=== PATIENT | male | born 1940 | race Caucasian/White ===

== ENCOUNTER → 2016-10-17 | Day surgery (SDC) | payer OTHER, MEDICARE ==
[2016-10-10 12:48] VITALS: BMI 26.0
--- NOTE | 2016-10-10 13:17 | PAT Medication Instructions ---
Service Date Oct 10, 2016. Current Home Medication List Aspirin (Aspirin Ec), 81 MG PO QAM Atorvastatin (Lipitor), 40 MG PO QAM Clopidogrel Bisulfate (Clopidogrel), 75 MG PO QAM Colchicine (Colchicine), 0.6 MG PO DAILY PRN for gout attacks Febuxostat (Uloric), 40 MG PO QAM Finasteride (Proscar), 5 MG PO QAM Hydralazine Hcl (Apresoline), 25 MG PO TID Lisinopril (Zestril), 40 MG PO QAM Nitroglycerin (Nitrostat), 0.4 MG UT PRN Psyllium (Metamucil), 1 DOSE PO DAILY Tamsulosin Hcl (Flomax), 0.4 MG PO QAM [Ketoconazole 2%], 1 DOSE TOP PRN Medication Instructions For Your Scheduled Surgery - Check with surgeon/attending physician for instructions: Clopidogrel Bisulfate (Clopidogrel), 75 MG PO QAM - Hold the following medications 24 hours prior to surgery: [Ketoconazole 2%], 1 DOSE TOP PRN - Hold the following medications the morning of surgery: Tamsulosin Hcl (Flomax), 0.4 MG PO QAM Psyllium (Metamucil), 1 DOSE PO DAILY Lisinopril (Zestril), 40 MG PO QAM Finasteride (Proscar), 5 MG PO QAM Colchicine (Colchicine), 0.6 MG PO DAILY PRN for gout attacks - Take the following medications the morning of surgery with a sip of water: Hydralazine Hcl (Apresoline), 25 MG PO TID Febuxostat (Uloric), 40 MG PO QAM Atorvastatin (Lipitor), 40 MG PO QAM Aspirin (Aspirin Ec), 81 MG PO QAM (okay to continue per surgeon) Nitroglycerin (Nitrostat), 0.4 MG UT PRN - Hold the following medications as scheduled the night before surgery: Colchicine (Colchicine), 0.6 MG PO DAILY PRN for gout attacks - Take the following medications as scheduled the night before surgery: Hydralazine Hcl (Apresoline), 25 MG PO TID Nitroglycerin (Nitrostat), 0.4 MG UT PRN If you have any questions please call us at [phone] (Saba Arce PA-C) or [phone] or [phone]
[~2016-10-17] VITALS: Ht 170.2 cm; Wt 75.7 kg
[~2016-10-17] MED LIST: ASPI81TA28 PO; ASPIRIN 81 MG ECTAB PO ONE; ATOR-24 PO; ATROPINE SULFATE 0.1 MG/ML 5ML SYR IV PRN; BUPIVACAINE 0.5 % 5 MG/1 ML MPF 30ML VIAL ONE; CEFAZOLIN SOD 1 GM VIAL ONE; CLINDAMYCIN IV 900 MG in DEXTROSE 5% ADD-VANTAGE 100ML 100 ML IV SCH; COLC0.6T54 PO; DEXAMETHASONE SOD INJ 4 MG/ML VIAL ONE; EpHEDrine SULFATE 50MG/5ML SYR ONE; EpHEDrine SULFATE INJ 50 MG/ML AMP IV PRN; FEBU40TA PO; FENTANYL CITRATE INJ 50 MCG/1 ML 2 ML VIAL ONE; FINA5TAB PO; FLOSEAL HEMOSTATIC MATRIX 10ML TOP ONE; FLOSEAL HEMOSTATIC MATRIX 5ML TOP ONE; GLYCOPYRROLATE INJ 0.2 MG/ML VIAL ONE; HEPARIN SOD (PORCINE) 1000 UNIT/ML 10 ML VIAL ONE; HYDR-4717 PO; KETOCONAZOLE 2% TOP; LACTATED RINGER'S 1000ML 1,000 ML IV SCH; LIDOCAINE HCL 2% 2 ML VIAL (20MG/ML) ONE; LISI40TA PO; MYL80 PO; MoRPHine SULFATE 4 MG/ML 1 ML CARP\\VIAL IV PRN; NEOSTIGMINE METHYLSULFATE 5 MG/5 ML SYR ONE; NTRGSL/4 UT; NURSING VERBAL MED ORDER ONE; ONDANSETRON INJ 2 MG/ML 2 ML VIAL IV PRN; ONDANSETRON INJ 2 MG/ML 2 ML VIAL ONE; OXYC-643 PO; OXYCODONE/ACETAMINOPHEN 5-325 TAB PO PRN; PANT20TA PO; PHENYLEPHRINE 100MCG/ML 5ML SYR ONE; PLV75 PO; PROMETHAZINE HCL INJ 6.25 MG in SODIUM CHLORIDE 0.9% 50ML 50 ML IV PRN; PROPOFOL IV EMULSION 10 MG/ML 20 ML VIAL IV ONE; PRT40 PO; PSYL0.524 PO; ROCURONIUM BROMIDE 10 MG/ML 5 ML VIAL ONE; SODIUM CHLORIDE 0.9% 1000ML 1,000 ML IV SCH; TAMS0.4C38 PO
[2016-10-17 08:32] VITALS: BP 158/87; PULSE 67; TEMP 36.4; O2SAT 99; Ht 170.2 cm; Wt 75.7 kg
--- NOTE | 2016-10-17 10:48 | History & Physical Bridge Note ---
H&P Re-Evaluation Bridge Note: I have examined the patient, reviewed the History & Physical and in the interval since the performance of the History & Physical I have noted the following changes of clinical significance: No changes noted
--- NOTE | 2016-10-17 13:37 | [facility] Post Operative Brief Note ---
Immediate Operative Summary Operative Date Oct 17, 2016. Pre-Operative Diagnosis Cholelithiasis, cholecystitis Post-Operative Diagnosis Cholelithiasis, cholecystitis Procedure(s) Performed Laparoscopic Cholecystectomy With Lysis of Adhesions Surgeon Dr German Deluna Records Management Clerk Surgeon(s) Darlene Persaud PA-C Estimated Blood Loss 20ml Findings See dictation Specimens A: Gallbladder and contents Drains None Anesthesia General Complication(s) None Disposition Recovery Room / PACU
[2016-10-17] MEDS: FENTANYL CITRATE INJ 50 MCG/1 ML 2 ML VIAL IV PRN ×2 (13:41→13:57)
--- NOTE | 2016-10-17 13:41 | Discharge Instructions ---
Discharge Instructions Date of Service Oct 17, 2016. Admission Reason for Admission: Right Upper Quadrant Abdominal Pain Discharge Discharge Diagnosis / Problem: Same Discharge Goals Goal(s): Decrease discomfort Activity Recommendations Activity Limitations: per Instructions/Follow-up section . Instructions / Follow-Up Instructions / Follow-Up Post-Surgical ~ Discharge Instructions Activity Recommendations: - lifting limitation: (10 pounds for 2 weeks), - exercise/sex/sports limit: (nonstrenuous for 2 weeks), - driving or machine use limit: (none for 1 week), - Shower/bathe limit: (may shower beginning tomorrow) Diet: - Resume previous diet SPECIAL CARE INSTRUCTIONS: - May shower in 24 hours. Let water run over area and pat dry. - Leave steri strips on for one week. - Call the surgeon's office with any questions or concerns - - (ex. temperature higher than 101 degrees F, excessive bleeding or pain). MEDICATIONS: - Resume previous medications unless instructed otherwise by your surgeon. - Ibuprofen 600 mg every 6 hours with food - Percocet 1 every 4 hours, as needed for pain FOLLOW UP VISIT: - If not already scheduled, please call the office to schedule a two week follow-up appointment. Office number Current Hospital Diet Patient's current hospital diet: Discharge Diet Recommended Diet: Regular Diet Procedures Procedures Performed: Laparoscopic Cholecystectomy With Lysis of Adhesions Pending Studies Studies pending at discharge: no Medical Emergencies . Who to Call and When: Medical Emergencies: If at any time you feel your situation is an emergency, please call 911 immediately. . Non-Emergent Contact Non-Emergency issues call your: Primary Care Provider, Surgeon Call Non-Emergent contact if: your pain is worsening, wound has increased redness, wound has increased pain . "Provider Documentation" section prepared by German Deluna. VTE Core Measure Inpt VTE Proph given/why not?: Treatment not indicated
--- NOTE | 2016-10-17 14:11 | Anesthesiology Progress Note ---
Anesthesia Post Op Note Date & Time Oct 17, 2016 at 14:11 Vital Signs Pain Intensity: 4 Vital Signs Past 12 Hours Date Time Temp Pulse Resp B/P Pulse Ox O2 Delivery O2 Flow Rate FiO2 10/17/16 14:05 70 12 126/83 97 Room Air 10/17/16 13:55 68 13 147/78 100 Mask 10 10/17/16 13:45 65 12 144/84 100 Mask 10 10/17/16 13:37 36.2 80 14 144/68 100 Mask 10 10/17/16 08:32 36.4 67 18 158/87 99 Room Air Notes Mental Status: alert / awake / arousable, participated in evaluation Pt Amnestic to Procedure: Yes Nausea / Vomiting: adequately controlled Pain: adequately controlled Airway Patency, RR, SpO2: stable & adequate BP & HR: stable & adequate Hydration State: stable & adequate Anesthetic Complications: no major complications apparent
[2016-10-17 14:25] VITALS: BP 136/88; PULSE 68; TEMP 36.4; O2SAT 96
[2016-10-17 14:57] VITALS: BP 144/74; PULSE 68; TEMP 36.4; O2SAT 97
[2016-10-17 15:25] VITALS: BP_SYST 145; BP_SYST 146; BP_DIAS 74; BP_DIAS 79; PULSE 68; PULSE 79; TEMP 36.4; TEMP 36.6; O2SAT 96
--- NOTE | 2016-10-17 22:13 | OPERATIVE REPORT ---
DATE OF OPERATION: 10/17/2016 PREOPERATIVE DIAGNOSES: Cholelithiasis, chronic cholecystitis. POSTOPERATIVE DIAGNOSES: Same. PROCEDURE: Laparoscopic cholecystectomy with lysis of multiple adhesions. SURGEON: Dr. Deluna. UNDERCOLLAR MAKER: Darlene Persaud PA-C. FINDINGS: The patient had multiple adhesions of the omentum to the anterior abdominal wall, beneath the vertical midline incision above the umbilicus. There was also a hernia there and there was adhesion of the omentum inside the hernia, but this was all able to eventually be reduced after meticulous dissection. The gallbladder was not dilated. The cystic duct was not dilated. The liver was of normal size and contour. The visible bowel appeared normal. There were stones within the lumen of the gallbladder. TECHNIQUE: The patient was given a general anesthetic and the area was prepped and draped in usual sterile fashion. A small transverse incision was made below the umbilicus, carried down through the subcutaneous tissue to the fascia which was grasped with 2 Atif clamps and incised between. The peritoneum was identified, incised, and the introducer was placed bluntly. The abdomen was then insufflated to a pressure of 15 mmHg with carbon dioxide. The camera was passed and the adhesions to the anterior abdominal wall were identified. The camera could be placed to the left side of the abdomen up toward the falciform and the upper midline introducer was placed to the left of the falciform. Using those 2 introducers, some of the adhesions were able to be taken down; however, I eventually could not to be sure that I had a good plane using just those 2 introducers. Two 5 mm introducers were placed under direct vision through small skin incisions on the left side of the abdomen. Downward traction was placed on the omentum and a plane was then able to be established by dissecting it off the peritoneum on the anterior abdominal wall. I did this working from inferior to superior and then from left to light. Eventually, I was able to dissect the entire omentum away. There was an adhesion of the omentum to the entrance site of one of the trocars and that was taken down as well. This was all done with blunt, sharp and cautery dissection where appropriate. The falciform was densely adhesed and I had to take some of the falciform off the anterior abdominal wall, that exposed the right upper quadrant. An additional introducer was placed in the anterior axillary line on the right under direct vision. Traction was placed superiorly on the gallbladder and the peritoneum was opened on the lateral side of the infundibulum and the gallbladder wall was established. I then worked over the anterior surface of the gallbladder into the triangle of Calot, opening all the spaces and peeling the peritoneum down toward the common bile duct. I then dissected the infundibulum away from the liver on the lateral side, then the medial side. I peeled additional thickened lymphatics and connective tissue away from the infundibulum anteriorly, allowing me to see the anterior surface of the cystic duct. I was then able to establish a plane along the lateral wall of the cystic duct, peeling additional tissue away. I was then able to perform a similar dissection on the medial wall and establish a plane posterior to the cystic duct and confidently identified the cystic duct -- gallbladder junction. Three clips were placed on the proximal cystic duct, 1 near the gallbladder, and it was divided. That exposed the cystic artery. It was isolated 360 degrees. Two clips placed proximally, 1 near the gallbladder, it was divided. The gallbladder was then peeled off the liver bed. In doing so, I encountered a small posterior branch of the artery which was clamped twice and divided. The gallbladder was then able to be dissected off the liver using electrocautery. It was placed into an Endobag and brought out through the upper midline incision. The subdiaphragmatic and subhepatic spaces were irrigated. There was some bile spillage from the gallbladder from a hole created by one of the graspers. The irrigation and then removal was repeated until the return was clear. The gallbladder bed of the liver was inspected. There were a few areas of oozing that were controlled with cautery. The previously placed clips were intact. I used some FloSeal in the gallbladder bed. There was some additional bleeding from the very edge of the gallbladder bed, at the edge of the liver, and this was controlled with cautery and additional FloSeal was placed. There was no further bleeding. The gas was allowed to escape and removed using suction. The introducers were removed. The fascia of the umbilical and upper midline introducer sites were closed with interrupted 0 Vicryl, the skin of all the incisions was closed with 4-0 Monocryl in either an interrupted or running subcuticular fashion. The skin was anesthetized with 0.5% Marcaine. The skin was cleansed, dried, benzoin placed, and Steri-Strips applied. The estimated blood loss was 20 mL. Sponge, needle and instrument counts were correct prior to closure. The patient tolerated the surgical procedure without complication and was transferred to recovery. I attest to the content of the Intraoperative Record and any orders documented therein. Any exceptio ns are noted below.
== END | disposition home or self-care (01) ==
LOC: C.ACU 08:11
PROVIDERS: ATTEND Surgery
DX: K80.10 Calculus of gallbladder with chronic cholecystitis without obstruction (principal); K66.0 Peritoneal adhesions (postprocedural) (postinfection); R10.11 Right upper quadrant pain

== ENCOUNTER 2016-10-20 20:33 | Inpatient (IN) | payer OTHER, MEDICARE ==
[~2016-10-20] VITALS: Ht 170.2 cm; Wt 76.1 kg
[~2016-10-20 20:33] MED LIST changes: -ASPIRIN 81 MG ECTAB PO ONE; -ATROPINE SULFATE 0.1 MG/ML 5ML SYR IV PRN; -BUPIVACAINE 0.5 % 5 MG/1 ML MPF 30ML VIAL ONE; -CEFAZOLIN SOD 1 GM VIAL ONE; -CLINDAMYCIN IV 900 MG in DEXTROSE 5% ADD-VANTAGE 100ML 100 ML IV SCH; -DEXAMETHASONE SOD INJ 4 MG/ML VIAL ONE; -EpHEDrine SULFATE 50MG/5ML SYR ONE; -EpHEDrine SULFATE INJ 50 MG/ML AMP IV PRN; -FENTANYL CITRATE INJ 50 MCG/1 ML 2 ML VIAL ONE; -FLOSEAL HEMOSTATIC MATRIX 10ML TOP ONE; -FLOSEAL HEMOSTATIC MATRIX 5ML TOP ONE; -GLYCOPYRROLATE INJ 0.2 MG/ML VIAL ONE; -HEPARIN SOD (PORCINE) 1000 UNIT/ML 10 ML VIAL ONE; -LACTATED RINGER'S 1000ML 1,000 ML IV SCH; -LIDOCAINE HCL 2% 2 ML VIAL (20MG/ML) ONE; -MYL80 PO; -MoRPHine SULFATE 4 MG/ML 1 ML CARP\\VIAL IV PRN; -NEOSTIGMINE METHYLSULFATE 5 MG/5 ML SYR ONE; -NURSING VERBAL MED ORDER ONE; -ONDANSETRON INJ 2 MG/ML 2 ML VIAL IV PRN; -ONDANSETRON INJ 2 MG/ML 2 ML VIAL ONE; -OXYC-643 PO; -OXYCODONE/ACETAMINOPHEN 5-325 TAB PO PRN; -PANT20TA PO; -PHENYLEPHRINE 100MCG/ML 5ML SYR ONE; -PROMETHAZINE HCL INJ 6.25 MG in SODIUM CHLORIDE 0.9% 50ML 50 ML IV PRN; -PROPOFOL IV EMULSION 10 MG/ML 20 ML VIAL IV ONE; -PRT40 PO; -ROCURONIUM BROMIDE 10 MG/ML 5 ML VIAL ONE; -SODIUM CHLORIDE 0.9% 1000ML 1,000 ML IV SCH
[2016-10-20] MEDS ORDERED: SODIUM CHLORIDE 0.9% 1000ML 1,000 ML IV STA (21:12)
[2016-10-20] MEDS ORDERED: MoRPHine SULFATE 4 MG/ML 1 ML CARP\\VIAL IV STA (21:36)
[2016-10-20] MEDS ORDERED: OXYC-643 PO (21:52)
[2016-10-20] MEDS ORDERED: PANT20TA2 PO (21:52)
[2016-10-20 22:01] LABS: BASO % 0.2 %; BASO ABS # 0.02 K/uL (0-0.2); COMPLETE YES; EOS % 0.9 %; IG% 0.6 %; LYMPH % 4.9 %; LYMPH ABS # 0.51 K/uL (1.2-3.4); MEAN CELL VOLUME 89.7 fL (80-100); MEAN CORPUSCULAR HEMOGLOBIN 31.6 pg (25-34); MEAN CORPUSCULAR HGB CONC 35.3 g/dl (32-36); MEAN PLATELET VOLUME 10.6 fL (7.4-10.4); MONO % 8.4 %; PLATELET COUNT 207 K/uL (130-400); RED BLOOD COUNT 4.46 M/uL (4.7-6.1); WHITE BLOOD COUNT 10.36 K/uL (4.8-10.8)
[2016-10-20 22:22] LABS: BUN/CREATININE RATIO 17.6 (10-20); CALCIUM 8.9 mg/dl (8.5-10.1); CREATININE 1.7 mg/dl (0.60-1.40)
[2016-10-21] VITALS (8 sets, daily range): BP systolic 97–135; BP diastolic 61–90; PULSE 75–102; TEMP 36.3–36.8; O2SAT 94–97; Ht 170.2 cm; Wt 76.1 kg
--- NOTE | 2016-10-21 00:36 | Surgery Progress Note ---
Surgery Progress Note Date of Service Oct 21, 2016. Subjective see dictated note Objective Vital Signs: Date Time Temp Pulse Resp B/P Pulse Ox O2 Delivery O2 Flow Rate FiO2 10/20/16 23:15 96 20 120/81 95 Room Air 10/20/16 21:55 92 20 99/84 93 Room Air 10/20/16 20:39 36.5 126 18 95/62 96 Room Air Laboratory Results: Results Past 24 Hours Test 10/20/16 21:51 Range/Units White Blood Count 10.36 4.8-10.8 K/uL Red Blood Count 4.46 4.7-6.1 M/uL Hemoglobin 14.1 14.0-18.0 g/dL Hematocrit 40.0 42-52 % Mean Corpuscular Volume 89.7 80-100 fL Mean Corpuscular Hemoglobin 31.6 25-34 pg Mean Corpuscular Hemoglobin Concent 35.3 32-36 g/dl Platelet Count 207 130-400 K/uL Mean Platelet Volume 10.6 7.4-10.4 fL Neutrophils (%) (Auto) 85.0 % Lymphocytes (%) (Auto) 4.9 % Monocytes (%) (Auto) 8.4 % Eosinophils (%) (Auto) 0.9 % Basophils (%) (Auto) 0.2 % Neutrophils # (Auto) 8.81 1.4-6.5 K/uL Lymphocytes # (Auto) 0.51 1.2-3.4 K/uL Monocytes # (Auto) 0.87 0.11-0.59 K/uL Eosinophils # (Auto) 0.09 0-0.5 K/uL Basophils # (Auto) 0.02 0-0.2 K/uL RDW Standard Deviation 44.5 36.4-46.3 fL RDW Coefficient of Variation 13.5 11.5-14.5 % Immature Granulocyte % (Auto) 0.6 % Immature Granulocyte # (Auto) 0.06 0.00-0.02 K/uL Sodium Level 135 136-145 mmol/L Potassium Level 4.0 3.5-5.1 mmol/L Chloride Level 100 98-107 mmol/L Carbon Dioxide Level 26 21-32 mmol/L Anion Gap 9.0 3-11 mmol/L Blood Urea Nitrogen 30 7-18 mg/dl Creatinine 1.70 0.60-1.40 mg/dl Est Creatinine Clear Calc Drug Dose 34.6 ml/min Estimated GFR () 44.4 Estimated GFR (Non- 38.3 BUN/Creatinine Ratio 17.6 10-20 Random Glucose 141 70-99 mg/dl Lactic Acid Level 1.2 0.4-2.0 mmol/L Calcium Level 8.9 8.5-10.1 mg/dl Total Bilirubin 0.7 0.2-1 mg/dl Direct Bilirubin 0.2 0-0.2 mg/dl Aspartate Amino Transf (AST/SGOT) 43 15-37 U/L Alanine Aminotransferase (ALT/SGPT) 56 12-78 U/L Alkaline Phosphatase 76 45-117 U/L Total Protein 6.1 6.4-8.2 gm/dl Albumin 2.6 3.4-5.0 gm/dl Lipase 122 73-393 U/L Assessment & Plan 10/21/16- abd pain, nausea, low back pressure- CT shows some intraperitoneal fluid- will order hida for tomorrow and place pt on cefoxitin which he has received in the past w/o reaction- checked with pharmacy
[2016-10-21] MEDS ORDERED: SODIUM CHLORIDE 0.9% 500ML 500 ML IV STA (00:45)
--- NOTE | 2016-10-21 00:45 | EMERGENCY ROOM VISIT NOTE ---
History Report prepared by Klaudia: Stephanie Manzanares Under the Supervision of: Dr. Marquis Bueno D.O. First contact with patient: 21:01 Chief Complaint: ABDOMINAL PAIN Stated Complaint: PRESSURE IN BACK, GALLBLADDER SURGERY ON MONDAY Nursing Triage Summary: Patient ambulatory to triage, daughter states "Dr. Sun told us to come up here. He had gallbladder surgery on Monday. He now has a catheter in since yesterday. He has a lot of pressure in his abdomen and back." Patient was having issues with constipation but has used an enema and suppositories. Patient "is just not feeling well." History of Present Illness The patient is a 76 year old male who presents to the Emergency Room with complaints of persistent right upper quadrant abdominal pain that started 3 days ago. He describes the pain as pressure and he states that he is also experiencing pressure in his back. He is also experiencing nausea but denies fevers greater than 100.4, rhinorrhea, changes in vision, sore throat, cough, and vomiting. The patient had a cholecystectomy done 3 days ago and he was discharged without voiding. The patient did not void the next day either and the following day he experienced urinary incontinence. The patient had a Dinero catheter placed yesterday and it has been draining normally. The patient's daughter states that she called Dr. Deluna's office and Dr. Sun told her to bring the patient into the ED since he is in the hospital on-call. The patient is only taking Advil for his pain because the Percocet that he was prescribed caused him to get constipated. The patient relieved his constipation yesterday with a fleet enema. He had two small bowel movements today, but he has not been passing gas. Source of History: patient Onset: 3 days ago Position: abdomen (RUQ) Quality: pressure Timing: other (persistent) Associated Symptoms: + back pain, + nausea, No cough, No fevers, No sorethroat, No vomiting Note: no rhinorrhea, no changes in vision Review of Systems See HPI for pertinent positives & negatives. A total of 10 systems reviewed and were otherwise negative. Past Medical & Surgical Medical Problems: (1) Angioedema (2) Benign hypertension (3) CKD (chronic kidney disease) (4) Clostridium difficile infection (5) Colonoscopic polypectomy (6) Diverticular disease of colon (7) Gout (8) History of colonic diverticulitis (9) Peripheral neuropathy (10) Raynauds syndrome Family History Diabetes mellitus MOTHER FH: heart attack Hypertension FATHER Mi FATHER Social History Smoking Status: Former Smoker Alcohol Use: none Drug Use: none Marital Status: Housing Status: lives with significant other Occupation Status: retired Current/Historical Medications Scheduled Aspirin (Aspirin Ec), 81 MG PO QAM Atorvastatin (Lipitor), 40 MG PO QAM Clopidogrel Bisulfate (Clopidogrel), 75 MG PO QAM Febuxostat (Uloric), 40 MG PO QAM Finasteride (Proscar), 5 MG PO QAM Hydralazine Hcl (Apresoline), 25 MG PO TID Lisinopril (Zestril), 40 MG PO QAM Nitroglycerin (Nitrostat), 0.4 MG UT PRN Psyllium (Metamucil), 1 DOSE PO DAILY Tamsulosin Hcl (Flomax), 0.4 MG PO QAM Allergies Coded Allergies: Allopurinol (Verified Allergy, Severe, swelling face, tongue, 10/20/16) Sulfa Antibiotics (Verified Allergy, Severe, "MOUTH" SWELLING, 10/20/16) Cantaloupe (Verified Allergy, Intermediate, rash,HIVES, 10/20/16) Penicillins (Verified Allergy, Intermediate, HIVES, 10/20/16) Vancomycin (Verified Allergy, Mild, RASH, 10/20/16) Ethacrynic Acid (Unverified Allergy, Unknown, RASH, 10/20/16) PER RECORDS Indapamide (Verified Allergy, Unknown, unknown, 10/20/16) Amlodipine (Verified Adverse Reaction, Severe, INTOLERANCE TO CALCIUM CHANNEL BLOCKERS (PER DR BERGMAN), 10/20/16) Trichlormethiazide (Verified Adverse Reaction, Severe, intolerance per Dr. Bergman, 10/20/16) Valproic Acid (Verified Adverse Reaction, Mild, diarrhea, 10/20/16) Beta Adrenergic Blockers (Unverified Adverse Reaction, Unknown, BRADYCARDIA, 10/20/16) PER RECORDS Ciprofloxacin (Verified Adverse Reaction, Unknown, SHAKEY DIZZY, 10/20/16) Physical Exam Vital Signs Date Time Temp Pulse Resp B/P Pulse Ox O2 Delivery O2 Flow Rate FiO2 10/20/16 23:15 96 20 120/81 95 Room Air 10/20/16 21:55 92 20 99/84 93 Room Air 10/20/16 20:39 36.5 126 18 95/62 96 Room Air Physical Exam GENERAL: alert, sitting up in bed, uncomfortable appearing holding abdomen, well nourished, no distress, non-toxic EYE EXAM: normal conjunctiva OROPHARYNX: no exudate, no erythema, lips, buccal mucosa, and tongue normal and mucous membranes are dry NECK: supple, no nuchal rigidity, no adenopathy, non-tender LUNGS: Clear to auscultation. Normal chest wall mechanics HEART: no murmurs, S1 normal and S2 normal ABDOMEN: abdomen soft, distended, [address] that are clean, dry, and intact, non-tender, normo-active bowel sounds, no masses, no rebound or guarding. BACK: Back is symmetrical on inspection and there is no deformity, no midline tenderness, no CVA tenderness. SKIN: no rashes and no bruising UPPER EXTREMITIES: upper extremities are grossly normal. LOWER EXTREMITIES: No pitting edema. : Dinero in place NEURO EXAM: Normal sensorium, cranial nerves II-XII grossly intact, normal speech, no gross weakness of arms, no gross weakness of legs. Medical Decision & Procedures ER Provider Diagnostic Interpretation: CT results have been interpreted by the radiologist and reviewed by me. CT ABDOMEN & PELVIS IMPRESSION: Small amount of fluid and peritoneal cavity. If recent cholecystectomy and there's concern for bile leak, recommended HIDA scan. Nonspecific bowel gas pattern with extended loops. Laboratory Results 10/20/16 21:51 Red Blood Count 4.46, Mean Corpuscular Volume 89.7, Mean Corpuscular Hemoglobin 31.6, Mean Corpuscular Hemoglobin Concent 35.3, Mean Platelet Volume 10.6, Neutrophils (%) (Auto) 85.0, Lymphocytes (%) (Auto) 4.9, Monocytes (%) (Auto) 8.4, Eosinophils (%) (Auto) 0.9, Basophils (%) (Auto) 0.2, Neutrophils # (Auto) 8.81, Lymphocytes # (Auto) 0.51, Monocytes # (Auto) 0.87, Eosinophils # (Auto) 0.09, Basophils # (Auto) 0.02 10/20/16 21:51 Test 10/20/16 21:51 White Blood Count 10.36 K/uL (4.8-10.8) Red Blood Count 4.46 M/uL (4.7-6.1) Hemoglobin 14.1 g/dL (14.0-18.0) Hematocrit 40.0 % (42-52) Mean Corpuscular Volume 89.7 fL (80-100) Mean Corpuscular Hemoglobin 31.6 pg (25-34) Mean Corpuscular Hemoglobin Concent 35.3 g/dl (32-36) Platelet Count 207 K/uL (130-400) Mean Platelet Volume 10.6 fL (7.4-10.4) Neutrophils (%) (Auto) 85.0 % Lymphocytes (%) (Auto) 4.9 % Monocytes (%) (Auto) 8.4 % Eosinophils (%) (Auto) 0.9 % Basophils (%) (Auto) 0.2 % Neutrophils # (Auto) 8.81 K/uL (1.4-6.5) Lymphocytes # (Auto) 0.51 K/uL (1.2-3.4) Monocytes # (Auto) 0.87 K/uL (0.11-0.59) Eosinophils # (Auto) 0.09 K/uL (0-0.5) Basophils # (Auto) 0.02 K/uL (0-0.2) RDW Standard Deviation 44.5 fL (36.4-46.3) RDW Coefficient of Variation 13.5 % (11.5-14.5) Immature Granulocyte % (Auto) 0.6 % Immature Granulocyte # (Auto) 0.06 K/uL (0.00-0.02) Anion Gap 9.0 mmol/L (3-11) Est Creatinine Clear Calc Drug Dose 34.6 ml/min Estimated GFR () 44.4 Estimated GFR (Non- 38.3 BUN/Creatinine Ratio 17.6 (10-20) Lactic Acid Level 1.2 mmol/L (0.4-2.0) Calcium Level 8.9 mg/dl (8.5-10.1) Total Bilirubin 0.7 mg/dl (0.2-1) Direct Bilirubin 0.2 mg/dl (0-0.2) Aspartate Amino Transf (AST/SGOT) 43 U/L (15-37) Alanine Aminotransferase (ALT/SGPT) 56 U/L (12-78) Alkaline Phosphatase 76 U/L (45-117) Total Protein 6.1 gm/dl (6.4-8.2) Albumin 2.6 gm/dl (3.4-5.0) Lipase 122 U/L (73-393) Laboratory results per my review. Medications Administered Medications (Trade) Dose Ordered Sig/Avirl Route Start Time Stop Time Status Last Admin Dose Admin Sodium Chloride (Nss 1000ml) 1,000 ml @ 999 mls/hr Q1H1M STAT IV 10/20/16 21:12 10/20/16 22:12 DC 10/20/16 21:56 999 MLS/HR ED Course ED COURSE: Vital signs were reviewed and showed hypotensive. The patients medical record was reviewed The above diagnostic studies were performed and reviewed. ED treatments and interventions as stated above. 2105: The patient was evaluated in room B6. A complete history and physical examination was performed. 2111: Ordered Sodium Chloride 1000 ml @ 999 mls/hr IV 0005: I reviewed the patient's case with Dr. Sun - General Surgery. He will evaluate the patient, but recommends admitting the patient to medicine. 0008: I reviewed the patient's case with Dr. Linh Moulton. The patient will be evaluated for further management. 0010: Upon reevaluation, the patient is resting comfortably. Dr. Sun is at bedside. I discussed my findings with the patient and he understands and agrees with the treatment plan. Based on the patients age, coexisting illnesses, exam and lab findings the decision to treat as an inpatient was made. The patient remained stable while under my care. The patient will be evaluated for further management. Medical Decision Differential diagnoses includes but is not limited to gastritis, peptic ulcer disease, GERD, gallbladder disease, pancreatitis, small bowel obstruction, acute coronary syndrome, pericarditis, ischemic bowel, irritable bowel disease, irritable bowel syndrome, appendicitis, diverticulitis, malignancy, hernia, urinary tract infection, torsion, perforation, trauma, infectious. Patient is a 66 her old male who presents the ER for diffuse abdominal fullness going through to his back. He recently had a cholecystectomy on Monday and since then has been having decreased bowel movements. He denies any fevers. No vomiting. Labs show no significant leukocytosis or anemia. BMP shows a creatinine 1.7. LFTs, bilirubin and lipase are unremarkable. Lactic acid is negative. Patient has a Dinero in place and UA was not obtained. CT of his head and pelvis shows an ileus along with a possible bile duct leak. This was discussed with general surgery and they recommended admission to internal medicine. He was given a dose of Zofran along with a bolus normal saline and Dilaudid. Patient remained stable and will be admitted to internal medicine to rule out a bile duct week with an ileus. Consults Time Called: 0000 Consulting Physician: Dr. Sun - General Surgery Returned Call: 0005 I reviewed the patient's case with Dr. Sun - General Surgery. He will evaluate the patient, but recommends admitting the patient to medicine. Additional Consults: Time Called: 0006 Consulted Physician: Dr. Linh Moulton Returned Call: 000 Additional Comments: I reviewed the patient's case with Dr. Linh Moulton. The patient will be evaluated for further management. Impression Primary Impression: Ileus Additional Impression: Possible bile duct leak Scribe Attestation The scribe's documentation has been prepared under my direction and personally reviewed by me in its entirety. I confirm that the note above accurately reflects all work, treatment, procedures, and medical decision making performed by me. Departure Information Dispostion Being Evaluated By Hospitalist Referrals Jeremiah Van D.O. (PCP) Patient Instructions My [facility] Problem Qualifiers
--- NOTE | 2016-10-21 00:55 | HISTORY & PHYSICAL EXAMINATION ---
DATE OF ADMISSION: 10/21/2016 ER evaluation for abdominal pain. HISTORY OF PRESENT ILLNESS: The patient is a 76-year-old male who recently underwent laparoscopic cholecystectomy with lysis of adhesions and also yesterday underwent Dinero catheter placement for urinary retention. He had his cholecystectomy on 10/17/2016, did well and was discharged home and then developed the urinary retention. His daughter called me tonight and said he was not feeling well, had pressure in his back, did not really want to drink much and felt somewhat bloated. I did instruct her to bring him to the Emergency Room for evaluation. He did undergo evaluation with CAT scan which showed some fluid within the abdomen. FAMILY AND SOCIAL HISTORY: Essentially noncontributory. ALLERGIES: HE HAS MULTIPLE ALLERGIES, PLEASE SEE CHART. REVIEW OF SYSTEMS: He has no fever, chills, chest pain, cough, sputum production. He does have some mild abdominal pain and nausea. No vomiting, no joint pain. Mild dysuria. No rash. Some mild fatigue. PHYSICAL EXAMINATION: VITAL SIGNS: He is afebrile. His heart rate is in the 90s. His blood pressure is stable. HEENT: Grossly normal. Sclerae nonicteric. NECK: Supple. LUNGS: He is breathing comfortably without respiratory distress. HEART: Regular rate and rhythm. ABDOMEN: Mildly distended. He does have some bowel sounds but decreased. He has minimal tenderness. EXTREMITIES: Without edema. His laboratory showed white count normal at 10.3. His liver functions are essentially normal. His bilirubin is normal. ASSESSMENT AND PLAN: A 76-year-old male with recent laparoscopic cholecystectomy. CT scan is read as some fluid in the abdomen which may be more than expected. We will check a HIDA scan tomorrow to rule out leak and most likely empirically place the patient on IV antibiotics. He will probably need 2-3 days in the hospital to be sure he does not have a leak and is able to eat and drink adequately. We will also check his urine for bacteria.
[2016-10-21] MEDS ORDERED: ACETAMINOPHEN 325 MG TAB PO PRN (01:00)
[2016-10-21] MEDS ORDERED: MAGNESIUM HYDROXIDE SUSP 30 ML UDC PO PRN (01:00)
[2016-10-21] MEDS ORDERED: ONDANSETRON INJ 2 MG/ML 2 ML VIAL IV PRN ×2 (01:00→05:15)
--- NOTE | 2016-10-21 01:09 | History and Physical ---
History & Physical Date & Time of Service: Oct 21, 2016 at 00:53 Chief Complaint: Pressure In Back, Gallbladder Surgery On Monday Primary Care Physician: Jeremiah Van D.O. History of Present Illness Source: patient, clinic records, hospital records 76 year old male with history of CAD, s/p Bare Metal Stent Placement to LAD in 2013, Hypertension, CKD 3, and other problems noted below presenting with abdominal bloating x [address] Van for PCP. Last 10/17/16, patient underwent Laparoscopic Cholecystectomy with Lysis of Adhesions for Cholecystitis/Cholelithiasis by Dr. Deluna. He was discharge the same day. Patient was apparently doing well until 2 days prior to admission when he started to have abdominal bloating and nausea. Denies fever/chills, dyspnea, chest pain. Patient was constipated and had fleet edema done yesterday with good bowel movement. He also noted urinary retention since after the surgery and a Dinero Catheter has been placed in the outpatient clinic. Patient's abdominal bloating and nausea persisted and was advised by Dr. Sun to proceed to the ED. Preliminary CT abdomen report reveals fluid in the intraperitoneal cavity, r/o Biliary Leak. LFTs and WBC within normal limits. On exam, patient resting in bed, comfortable except for abdominal bloating. Denies active abdominal pain, nausea, chest pain, dyspnea. No other symptoms. Past Medical/Surgical History Medical Problems: (1) Angioedema Status: Resolved (2) Benign hypertension Status: Chronic (3) CKD (chronic kidney disease) Status: Chronic (4) Clostridium difficile infection Status: Resolved (5) Colonoscopic polypectomy Status: Resolved (6) Diverticular disease of colon Status: Chronic (7) Gout Status: Chronic (8) History of colonic diverticulitis Status: Chronic (9) Peripheral neuropathy Status: Chronic (10) Raynauds syndrome Status: Chronic Family History Diabetes mellitus MOTHER FH: heart attack Hypertension FATHER Mi FATHER Social History Smoking Status: Former Smoker Drug Use: none Marital Status: Occupational Status: retired Immunizations History of Influenza Vaccine: Yes Influenza Vaccine Date: May 13, 2014 History of Tetanus Vaccine?: Yes History of Pneumococcal: Yes Pneumococcal Date: Nov 21, 2013 History of Hepatitis B Vaccine: No Multi-Drug Resistant Organisms History of MDRO: No Allergies Coded Allergies: Allopurinol (Verified Allergy, Severe, swelling face, tongue, 10/20/16) Sulfa Antibiotics (Verified Allergy, Severe, "MOUTH" SWELLING, 10/20/16) Cantaloupe (Verified Allergy, Intermediate, rash,HIVES, 10/20/16) Penicillins (Verified Allergy, Intermediate, HIVES, 10/20/16) Vancomycin (Verified Allergy, Mild, RASH, 10/20/16) Ethacrynic Acid (Unverified Allergy, Unknown, RASH, 10/20/16) PER RECORDS Indapamide (Verified Allergy, Unknown, unknown, 10/20/16) Amlodipine (Verified Adverse Reaction, Severe, INTOLERANCE TO CALCIUM CHANNEL BLOCKERS (PER DR DE LEÓN), 10/20/16) Trichlormethiazide (Verified Adverse Reaction, Severe, intolerance per Dr. De León, 10/20/16) Valproic Acid (Verified Adverse Reaction, Mild, diarrhea, 10/20/16) Beta Adrenergic Blockers (Unverified Adverse Reaction, Unknown, BRADYCARDIA, 10/20/16) PER RECORDS Ciprofloxacin (Verified Adverse Reaction, Unknown, SHAKEY DIZZY, 10/20/16) Home Medications Scheduled Aspirin (Aspirin Ec), 81 MG PO QAM Atorvastatin (Lipitor), 40 MG PO QAM Clopidogrel Bisulfate (Clopidogrel), 75 MG PO QAM Febuxostat (Uloric), 40 MG PO QAM Finasteride (Proscar), 5 MG PO QAM Hydralazine Hcl (Apresoline), 25 MG PO TID Lisinopril (Zestril), 40 MG PO QAM Nitroglycerin (Nitrostat), 0.4 MG UT PRN Psyllium (Metamucil), 1 DOSE PO DAILY Tamsulosin Hcl (Flomax), 0.4 MG PO QAM Review of Systems Constitutional- no fever; no weight loss Eyes- no acute visual changes ENT- no sinus drainage; no pharyngitis Pulmonary- no cough, no wheezing, no shortness of breath Cardiac- no chest pain, no palpitations, no orthopnea, no dependent edema GI- (+) as noted above - (+) as noted above Musculoskeletal- no arthralgias, no myalgias Derm- no rashes, no new skin lesions, no changing skin lesions Hematologic- no unusual bruising, no unusual bleeding Lymphatics- no adenopathy Endocrine- no polyuria or polydipsia; no heat or cold intolerance Neuro- no headaches, no focal neurologic symptoms Psych- no anxiety, no depression Physical Exam Vital Signs Date Time Temp Pulse Resp B/P Pulse Ox O2 Delivery O2 Flow Rate FiO2 10/20/16 23:15 96 20 120/81 95 Room Air 10/20/16 21:55 92 20 99/84 93 Room Air 10/20/16 20:39 36.5 126 18 95/62 96 Room Air General Appearance: WD/WN, no apparent distress Head: normocephalic, atraumatic Eyes: normal inspection, EOMI, sclerae normal ENT: normal ENT inspection, hearing grossly normal, pharynx normal Neck: supple, no adenopathy, thyroid normal, no JVD, trachea midline Respiratory/Chest: chest non-tender, lungs clear, normal breath sounds, no respiratory distress, no accessory muscle use Cardiovascular: regular rate, rhythm, no murmur Abdomen/GI: normal bowel sounds, soft, + tenderness (moderate tenderness to RLQ and suprapubic region), + distended (mild distention), + pertinent finding ( no guarding) Back: normal inspection, no CVA tenderness Extremities/Musculoskelatal: normal inspection, no calf tenderness, no pedal edema Neurologic/Psych: ob gyn physician assistant II-XII nml as tested, no motor/sensory deficits, alert, normal mood/affect, normal reflexes, oriented x 3 Skin: normal color Diagnostics Laboratory Results Results Past 24 Hours Test 10/20/16 21:51 Range/Units White Blood Count 10.36 4.8-10.8 K/uL Red Blood Count 4.46 4.7-6.1 M/uL Hemoglobin 14.1 14.0-18.0 g/dL Hematocrit 40.0 42-52 % Mean Corpuscular Volume 89.7 80-100 fL Mean Corpuscular Hemoglobin 31.6 25-34 pg Mean Corpuscular Hemoglobin Concent 35.3 32-36 g/dl Platelet Count 207 130-400 K/uL Mean Platelet Volume 10.6 7.4-10.4 fL Neutrophils (%) (Auto) 85.0 % Lymphocytes (%) (Auto) 4.9 % Monocytes (%) (Auto) 8.4 % Eosinophils (%) (Auto) 0.9 % Basophils (%) (Auto) 0.2 % Neutrophils # (Auto) 8.81 1.4-6.5 K/uL Lymphocytes # (Auto) 0.51 1.2-3.4 K/uL Monocytes # (Auto) 0.87 0.11-0.59 K/uL Eosinophils # (Auto) 0.09 0-0.5 K/uL Basophils # (Auto) 0.02 0-0.2 K/uL RDW Standard Deviation 44.5 36.4-46.3 fL RDW Coefficient of Variation 13.5 11.5-14.5 % Immature Granulocyte % (Auto) 0.6 % Immature Granulocyte # (Auto) 0.06 0.00-0.02 K/uL Sodium Level 135 136-145 mmol/L Potassium Level 4.0 3.5-5.1 mmol/L Chloride Level 100 98-107 mmol/L Carbon Dioxide Level 26 21-32 mmol/L Anion Gap 9.0 3-11 mmol/L Blood Urea Nitrogen 30 7-18 mg/dl Creatinine 1.70 0.60-1.40 mg/dl Est Creatinine Clear Calc Drug Dose 34.6 ml/min Estimated GFR () 44.4 Estimated GFR (Non- 38.3 BUN/Creatinine Ratio 17.6 10-20 Random Glucose 141 70-99 mg/dl Lactic Acid Level 1.2 0.4-2.0 mmol/L Calcium Level 8.9 8.5-10.1 mg/dl Total Bilirubin 0.7 0.2-1 mg/dl Direct Bilirubin 0.2 0-0.2 mg/dl Aspartate Amino Transf (AST/SGOT) 43 15-37 U/L Alanine Aminotransferase (ALT/SGPT) 56 12-78 U/L Alkaline Phosphatase 76 45-117 U/L Total Protein 6.1 6.4-8.2 gm/dl Albumin 2.6 3.4-5.0 gm/dl Lipase 122 73-393 U/L Diagnostic Radiology per H&P Impression Assessment and Plan 76 year old male with history of CAD, s/p Bare Metal Stent Placement to LAD in 2013, Hypertension, CKD 3, and other problems noted below presenting with abdominal bloating x 2 days. ABDOMINAL BLOATING, NAUSEA S/P LAPAROSCOPIC CHOLECYSTECTOMY, ADHESIOLYSIS 10/17/16 - noted post op Day 2 - r/o Biliary Leak as per CT abdomen - afebrile, no leukocytosis LFTs within normal limits - NPO, IV fluids, PRN Simethicone, Protonix IV daily Dr. Sun Gen Surg Consulted CONSTIPATION PRN Milk of Mg URINARY RETENTION noted post operatively Dinero Cath trial of voiding when able HISTORY OF CAD S/P BARE METAL STENT PLACEMENT TO LAD per Shift Supervisor Rn, maintain on Aspirin with no interruption, HOLD Plavix if surgery contemplated continue Aspirin, HOLD Plavix for now BP marginal, hold Lisinopril and Hydralazine HYPERTENSION BP marginal, hold Lisinopril and Hydralazine monitor CKD 3 baseline crea 1.5 now 1.7 Lisinopril on hold IV fluids BPH continue Finasteride, Tamsulosin HISTORY OF C DIFF FULL CODE DVT PROPHYLAXIS SCDs may need surgical intervention DISPOSITION anticipate d/c home when medically stable VTE Prophylaxis VTE Risk Assessment Done? Y/N: Yes Risk Level: Moderate
[2016-10-21] MEDS: D5W AND NSS 1,000 ML IV SCH ×3 (01:51→23:13)
[2016-10-21] MEDS ORDERED: PANTOprazole INJ 40 MG in SYRINGE 0 ML IV ONE (02:00)
[2016-10-21 02:08] LABS: URINE APPEARANCE TURBID (CLEAR); URINE COLOR DK YELLOW; URINE NITRITE POS (NEG); URINE SPECIFIC GRAVITY 1.028 (1.000-1.030); UROBILINOGEN NEG (NEG); ZZUR CULT IF INDIC CLEAN CATCH YES
[2016-10-21 02:12] LABS: MANUAL MICROSCOPIC REQUIRED? NO; REVIEW REQ? YES
[2016-10-21 02:14] LABS: URINE BILIRUBIN NEG (NEG)
[2016-10-21 02:28] LABS: URINE MUCUS PRESENT (NONE PRSENT)
[2016-10-21] MEDS: CEFOXITIN IV 1,000 MG in DEXTROSE 5% 50ML 50 ML IV SCH ×3 (02:30→18:33)
[2016-10-21] MEDS ORDERED: PROMETHAZINE HCL INJ 25 MG in SODIUM CHLORIDE 0.9% 50ML 50 ML IV PRN (05:15)
[2016-10-21] MEDS ORDERED: PROMETHAZINE HCL INJ 12.5 MG in SODIUM CHLORIDE 0.9% 50ML 50 ML IV PRN (05:30)
--- NOTE | 2016-10-21 06:32 | DIAGNOSTIC IMAGING REPORT ---
ABDOMEN AND PELVIS CT WITHOUT CONTRAST CT DOSE: 367.66 mGy.cm HISTORY: Postoperative pain pain TECHNIQUE: Multiaxial CT images of the abdomen and pelvis were performed without contrast. COMPARISON STUDY: 03/26/2013 FINDINGS: Bibasilar atelectatic changes. There is no free fluid showing both liver as well as spleen. Prior cholecystectomy. Small amount of fluid within the gallbladder fossa region. A trace amount of free scattered intraperitoneal air most likely on a postoperative basis. Kidneys negative for hydronephrosis. Small left renal exophytic hyperdense cyst. Trauma fluid within the paracolic gutter regions as well as within the soft tissue pelvic cul-de-sac. Dinero catheter in the bladder. Scattered pelvic surgical sutures. Bowel pattern is suggestive of a mild nonobstructive generalized ileus. IMPRESSION: 1. Postoperative changes consistent with a recent cholecystectomy. 2. Small amount of ascites within the abdomen as well as pelvic regions. 3. Trace amount free intraperitoneal air most likely postoperative. 4. Bibasilar atelectatic change. 5. Mild nonobstructive ileus Electronically signed by: German Amaro M.D. 10/21/2016 6:31 AM Dictated Date/Time: 10/21/2016 6:27 AM
[2016-10-21] MEDS: PSYLLIUM 58.6% PWD PACK S\\F PO SCH (09:00)
--- NOTE | 2016-10-21 10:08 | DIAGNOSTIC IMAGING REPORT ---
NUCLEAR MEDICINE HEPATOBILIARY SCAN CLINICAL HISTORY: Diffuse abdominal pain status post cholecystectomy. Evaluate for bile leak. COMPARISON STUDY: CT scan dated 10/20/2016 FINDINGS: The patient was injected with 5.3 mCi of technetium 99m Choletec. Sequential anterior imaging was performed. Delayed images were also acquired. There is normal patches of activity into small bowel. There is reflux of activity into the stomach. Delayed images reveal no free activity within the peritoneal cavity. There are no subcapsular collections. IMPRESSION: No scintigraphic evidence of a bile leak. Electronically signed by: Jacob Nguyễn M.D. 10/21/2016 10:07 AM Dictated Date/Time: 10/21/2016 10:04 AM
[2016-10-21] MEDS: FINASTERIDE 5 MG TAB PO SCH (10:09)
[2016-10-21] MEDS: FEBUXOSTAT 40 MG TAB PO SCH (10:09)
[2016-10-21] MEDS: ASPIRIN 81 MG ECTAB PO SCH (10:10)
[2016-10-21] MEDS: TAMSULOSIN HCL 0.4 MG CAP PO SCH (10:11)
[2016-10-21] MEDS ORDERED: PANTOprazole INJ 40 MG in SYRINGE 0 ML IV SCH (11:00)
[2016-10-21 11:41] LABS: BASO % 0.1 %; BASO ABS # 0.01 K/uL (0-0.2); COMPLETE YES; EOS % 1.5 %; HEMATOCRIT 38.2 % (42-52); IG% 0.9 %; LYMPH % 7.8 %; MEAN CELL VOLUME 90.5 fL (80-100); MEAN CORPUSCULAR HEMOGLOBIN 31.8 pg (25-34); MEAN CORPUSCULAR HGB CONC 35.1 g/dl (32-36); MEAN PLATELET VOLUME 10.2 fL (7.4-10.4); MONO % 9.9 %; NEUT % 79.8 %; PLATELET COUNT 209 K/uL (130-400); RED BLOOD COUNT 4.22 M/uL (4.7-6.1); WHITE BLOOD COUNT 8.95 K/uL (4.8-10.8)
[2016-10-21 12:03] LABS: CALCIUM 8.5 mg/dl (8.5-10.1); CREATININE 2.4 mg/dl (0.60-1.40)
[2016-10-21] MEDS: SIMETHICONE 80 MG CHEW PO PRN (14:44)
[2016-10-21] MEDS ORDERED: NURSING VERBAL MED ORDER ONE (15:30)
--- NOTE | 2016-10-21 15:41 | Surgery Progress Note ---
Surgery Progress Note Date of Service Oct 21, 2016. Subjective Post OP Day: 4 + bowel movement, + flatus, No SOB, No chest pain, No nausea, No vomiting Feeling better than yesterday but still having abdominal bloating and pain + bowel movement (liquids) + flatus no vomiting Objective Vital Signs: Date Time Temp Pulse Resp B/P Pulse Ox O2 Delivery O2 Flow Rate FiO2 10/21/16 15:09 36.5 98 16 123/84 96 Room Air 10/21/16 11:53 36.8 92 20 106/90 94 Room Air 100/66 10/21/16 10:51 96 10/21/16 07:55 36.5 102 18 100/80 96 Room Air 10/21/16 07:30 Room Air 10/21/16 07:30 100 10/21/16 01:36 36.3 81 18 135/87 97 Room Air 10/21/16 01:25 36.3 81 18 135/87 97 Room Air 10/21/16 01:15 78 20 126/75 95 10/20/16 23:15 96 20 120/81 95 Room Air 10/20/16 21:55 92 20 99/84 93 Room Air 10/20/16 20:39 36.5 126 18 95/62 96 Room Air Physical Exam: urine output (120 cc in last 9 hours, dark yellow) General Appearance: WD/WN, + mild distress Head: normocephalic, atraumatic Respiratory/Chest: no respiratory distress, no accessory muscle use Abdomen: soft, + abnormal bowel sounds (hypoactive), + distended, + guarding ( on deep palpation), + tenderness Incision(s): clean, dry, intact, no erythema, no drainage Laboratory Results: Results Past 24 Hours Test 10/20/16 21:51 10/21/16 01:35 10/21/16 11:32 Range/Units White Blood Count 10.36 8.95 4.8-10.8 K/uL Red Blood Count 4.46 4.22 4.7-6.1 M/uL Hemoglobin 14.1 13.4 14.0-18.0 g/dL Hematocrit 40.0 38.2 42-52 % Mean Corpuscular Volume 89.7 90.5 80-100 fL Mean Corpuscular Hemoglobin 31.6 31.8 25-34 pg Mean Corpuscular Hemoglobin Concent 35.3 35.1 32-36 g/dl Platelet Count 207 209 130-400 K/uL Mean Platelet Volume 10.6 10.2 7.4-10.4 fL Neutrophils (%) (Auto) 85.0 79.8 % Lymphocytes (%) (Auto) 4.9 7.8 % Monocytes (%) (Auto) 8.4 9.9 % Eosinophils (%) (Auto) 0.9 1.5 % Basophils (%) (Auto) 0.2 0.1 % Neutrophils # (Auto) 8.81 7.14 1.4-6.5 K/uL Lymphocytes # (Auto) 0.51 0.70 1.2-3.4 K/uL Monocytes # (Auto) 0.87 0.89 0.11-0.59 K/uL Eosinophils # (Auto) 0.09 0.13 0-0.5 K/uL Basophils # (Auto) 0.02 0.01 0-0.2 K/uL RDW Standard Deviation 44.5 45.4 36.4-46.3 fL RDW Coefficient of Variation 13.5 13.7 11.5-14.5 % Immature Granulocyte % (Auto) 0.6 0.9 % Immature Granulocyte # (Auto) 0.06 0.08 0.00-0.02 K/uL Sodium Level 135 139 136-145 mmol/L Potassium Level 4.0 4.0 3.5-5.1 mmol/L Chloride Level 100 104 98-107 mmol/L Carbon Dioxide Level 26 29 21-32 mmol/L Anion Gap 9.0 6.0 3-11 mmol/L Blood Urea Nitrogen 30 31 7-18 mg/dl Creatinine 1.70 2.40 0.60-1.40 mg/dl Est Creatinine Clear Calc Drug Dose 34.6 24.5 ml/min Estimated GFR () 44.4 29.3 Estimated GFR (Non- 38.3 25.3 BUN/Creatinine Ratio 17.6 13.0 10-20 Random Glucose 141 130 70-99 mg/dl Lactic Acid Level 1.2 0.4-2.0 mmol/L Calcium Level 8.9 8.5 8.5-10.1 mg/dl Total Bilirubin 0.7 0.5 0.2-1 mg/dl Direct Bilirubin 0.2 0.2 0-0.2 mg/dl Aspartate Amino Transf (AST/SGOT) 43 47 15-37 U/L Alanine Aminotransferase (ALT/SGPT) 56 64 12-78 U/L Alkaline Phosphatase 76 69 45-117 U/L Total Protein 6.1 5.7 6.4-8.2 gm/dl Albumin 2.6 2.5 3.4-5.0 gm/dl Lipase 122 73-393 U/L Urine Color DK YELLOW Urine Appearance TURBID CLEAR Urine pH 5.0 4.5-7.5 Urine Specific [place] 1.028 1.000-1.030 Urine Protein 3+ NEG Urine Glucose (UA) NEG NEG Urine Ketones TRACE NEG Urine Occult Blood 3+ NEG Urine Nitrite POS NEG Urine Bilirubin NEG NEG Urine Urobilinogen NEG NEG Urine Leukocyte Esterase MODERATE NEG Urine WBC (Auto) >30 0-5 /hpf Urine RBC (Auto) >30 0-4 /hpf Urine Hyaline Casts (Auto) 5-10 0-5 /lpf Urine Epithelial Cells (Auto) 5-10 0-5 /lpf Urine Bacteria (Auto) 4+ NEG Urine Pathogenic Casts 0 /lpf Urine Mucus PRESENT NONE PRSENT Urine Yeast (Auto) NONE PRSENT Microbiology Results 3 Urine Culture, Received Pending Assessment & Plan POD # 4 s/p Laparoscopic Cholecystectomy and lysis of adhesions - S/p urinary retention and placement of Dinero Catheter - Post-op Ileus - + BM and flatus - abdomen still operator and distended - Afebrile - no leukocytosis - BUN/Creatinine increased from yesterday to 31/2.40 Plan: Continue NPO Increase IV fluids to 125 mls/hr Continue pain management Continue IV Cefoxitin avoid narcotics Continue Dinero Catheter Encourage ambulation await results of urine culture repeat am labs: cbc, cmp Will continue to follow Dr. Deluna has seen and examined patient developed assessment and plan.
[2016-10-22] MEDS: CEFOXITIN IV 1,000 MG in DEXTROSE 5% 50ML 50 ML IV SCH ×3 (01:37→17:28)
[2016-10-22 05:57] LABS: HEMATOCRIT 35.9 % (42-52); MEAN CELL VOLUME 89.1 fL (80-100); MEAN CORPUSCULAR HEMOGLOBIN 30.8 pg (25-34); MEAN CORPUSCULAR HGB CONC 34.5 g/dl (32-36); MEAN PLATELET VOLUME 9.6 fL (7.4-10.4); PLATELET COUNT 223 K/uL (130-400); RED BLOOD COUNT 4.03 M/uL (4.7-6.1); WHITE BLOOD COUNT 8.81 K/uL (4.8-10.8)
[2016-10-22 06:33] LABS: BUN/CREATININE RATIO 14.5 (10-20); CREATININE 1.9 mg/dl (0.60-1.40)
[2016-10-22 06:36] LABS: ALB/GLOB RATIO 0.7 (0.9-2)
[2016-10-22 06:59] VITALS: BP 134/80; PULSE 79; TEMP 36.7; O2SAT 95
[2016-10-22] MEDS: D5W AND NSS 1,000 ML IV SCH ×2 (08:06→17:29)
[2016-10-22] MEDS: FEBUXOSTAT 40 MG TAB PO SCH (08:06)
[2016-10-22] MEDS: TAMSULOSIN HCL 0.4 MG CAP PO SCH (08:07)
[2016-10-22] MEDS: FINASTERIDE 5 MG TAB PO SCH (08:07)
[2016-10-22] MEDS: ASPIRIN 81 MG ECTAB PO SCH (08:07)
[2016-10-22] MEDS: PANTOprazole SOD 40 MG TAB PO SCH (08:09)
--- NOTE | 2016-10-22 11:59 | Surgery Progress Note ---
Surgery Progress Note Date of Service Oct 22, 2016. Subjective Post OP Day: 5 + bowel movement, + flatus, No nausea, No vomiting Feels much better today Objective Vital Signs: Date Time Temp Pulse Resp B/P Pulse Ox O2 Delivery O2 Flow Rate FiO2 10/22/16 08:00 Room Air 10/22/16 06:59 36.7 79 17 134/80 95 Room Air 10/21/16 23:15 Room Air 10/21/16 23:00 36.8 75 16 97/61 96 Room Air 10/21/16 16:00 Room Air 10/21/16 15:09 36.5 98 16 123/84 96 Room Air Abdomen: normal bowel sounds, non distended, soft, + tenderness (minimal) Incision(s): clean, dry, intact, no erythema, no drainage Laboratory Results: Results Past 24 Hours Test 10/22/16 05:50 Range/Units White Blood Count 8.81 4.8-10.8 K/uL Red Blood Count 4.03 4.7-6.1 M/uL Hemoglobin 12.4 14.0-18.0 g/dL Hematocrit 35.9 42-52 % Mean Corpuscular Volume 89.1 80-100 fL Mean Corpuscular Hemoglobin 30.8 25-34 pg Mean Corpuscular Hemoglobin Concent 34.5 32-36 g/dl RDW Standard Deviation 45.1 36.4-46.3 fL RDW Coefficient of Variation 13.7 11.5-14.5 % Platelet Count 223 130-400 K/uL Mean Platelet Volume 9.6 7.4-10.4 fL Sodium Level 142 136-145 mmol/L Potassium Level 4.0 3.5-5.1 mmol/L Chloride Level 109 98-107 mmol/L Carbon Dioxide Level 24 21-32 mmol/L Anion Gap 9.0 3-11 mmol/L Blood Urea Nitrogen 28 7-18 mg/dl Creatinine 1.90 0.60-1.40 mg/dl Est Creatinine Clear Calc Drug Dose 30.9 ml/min Estimated GFR () 38.8 Estimated GFR (Non- 33.5 BUN/Creatinine Ratio 14.5 10-20 Random Glucose 101 70-99 mg/dl Calcium Level 8.0 8.5-10.1 mg/dl Total Bilirubin 0.4 0.2-1 mg/dl Aspartate Amino Transf (AST/SGOT) 59 15-37 U/L Alanine Aminotransferase (ALT/SGPT) 77 12-78 U/L Alkaline Phosphatase 76 45-117 U/L Total Protein 5.5 6.4-8.2 gm/dl Albumin 2.3 3.4-5.0 gm/dl Globulin 3.2 2.5-4.0 gm/dl Albumin/Globulin Ratio 0.7 0.9-2 Assessment & Plan S/P lap jillian Constipation resolved Urinary retention, Has Dinero Urine output increased with increased IV fluids Creatinine decreased today Can begin clear liquids Can shower
[2016-10-22] MEDS: PSYLLIUM 58.6% PWD PACK S\\F PO SCH (12:06)
[2016-10-22 15:11] VITALS: BP 129/80; PULSE 71; TEMP 36.5; O2SAT 98
[2016-10-22] MEDS: SIMETHICONE 80 MG CHEW PO PRN (16:28)
--- NOTE | 2016-10-22 16:29 | Progress Note ---
Internal Med Progress Note Date of Service: Oct 22, 2016. Provider Documentation: SUBJECTIVE: Patient is lying in his bed in no apparent distress. Still c/o feeling of fullness in abdomen. Had a few watery BMs earlier today. Had some nausea earlier but no vomiting. Tolerating liquid diet so far. OBJECTIVE: Vital Signs-as noted below Examination: General Appearance: WD/WN, no apparent distress Head: normocephalic, atraumatic Eyes: normal inspection, EOMI, sclerae normal ENT: normal ENT inspection, hearing grossly normal, pharynx normal Neck: supple, no adenopathy, thyroid normal, no JVD, trachea midline Respiratory/Chest: chest non-tender, lungs clear, normal breath sounds, no respiratory distress, no accessory muscle use Cardiovascular: regular rate, rhythm, no murmur Abdomen/GI: normal bowel sounds, soft, Mild to moderate pain on deep palpation to RLQ and suprapubic region,mild distention, No gaurding. Back: normal inspection, no CVA tenderness Extremities/Musculoskeletal: normal inspection, no calf tenderness, no pedal edema Neurologic/Psych: brim buster II-XII nml as tested, no motor/sensory deficits, alert, normal mood/affect, normal reflexes, oriented x 3 Skin: normal color Lab data as noted below. ASSESSMENT & PLAN: CT Abdomen/Pelvis IMPRESSION: 1. Postoperative changes consistent with a recent cholecystectomy. 2. Small amount of ascites within the abdomen as well as pelvic regions. 3. Trace amount free intraperitoneal air most likely postoperative. 4. Bibasilar atelectatic change. 5. Mild nonobstructive ileus NUCLEAR MEDICINE HEPATOBILIARY SCAN FINDINGS: The patient was injected with 5.3 mCi of technetium 99m Choletec.Sequential anterior imaging was performed. Delayed images were also acquired. There is normal patches of activity into small bowel. There is reflux of activity into the stomach. Delayed images reveal no free activity within the peritoneal cavity. There are no subcapsular collections. IMPRESSION: No scintigraphic evidence of a bile leak. Abdominal Bloating with Nausea: S/P Laparoscopic Cholecystectomy & Adhesiolysis on 10/17/2016: Clinically doing well. ?? Mild Ileus. Is afebrile and has no leukocytosis. -Reviewed radiologic studies which R/O Bile leak. -LFT are in normal limits -Started clear liquid diet -Reviewed surgical input. Thanks Constipation: MOM as needed.CONSTIPATION Urinary Retention: Post-operatively. -Advised nursing staff to discontinue Dinero catheter. -Trial of voiding when able History CAD S/P Bare metal Stent: Stable. As per Manager Fine, maintain on Aspirin with no interruption, HOLD Plavix if surgery contemplated continue Aspirin, HOLD Plavix for now BP marginal, hold Lisinopril and Hydralazine History Hypertension: BP marginal. Holding Lisinopril and Hydralazine CKD Stage III: Baseline Creatinine 1.5 History BPH: Stable. Continue Finasteride, Tamsulosin History C. Diff: Stable. Code Status: FULL CODE DVT Prophylaxis: SCDs & Ambulation. Disposition: Anticipate d/c home when medically stable Vital Signs: Date Time Temp Pulse Resp B/P Pulse Ox O2 Delivery O2 Flow Rate FiO2 10/23/16 14:53 36.6 61 16 124/72 98 Room Air 10/23/16 07:50 Room Air 10/23/16 07:27 36.3 71 16 129/74 98 Room Air 10/22/16 23:25 Room Air 10/22/16 23:18 37.3 77 19 147/84 98 Room Air Lab Results: Results Past 24 Hours Test 10/23/16 05:22 Range/Units White Blood Count 7.44 4.8-10.8 K/uL Red Blood Count 3.37 4.7-6.1 M/uL Hemoglobin 10.4 14.0-18.0 g/dL Hematocrit 29.8 42-52 % Mean Corpuscular Volume 88.4 80-100 fL Mean Corpuscular Hemoglobin 30.9 25-34 pg Mean Corpuscular Hemoglobin Concent 34.9 32-36 g/dl Platelet Count 198 130-400 K/uL Mean Platelet Volume 9.2 7.4-10.4 fL Neutrophils (%) (Auto) 72.8 % Lymphocytes (%) (Auto) 9.9 % Monocytes (%) (Auto) 12.2 % Eosinophils (%) (Auto) 2.7 % Basophils (%) (Auto) 0.1 % Neutrophils # (Auto) 5.41 1.4-6.5 K/uL Lymphocytes # (Auto) 0.74 1.2-3.4 K/uL Monocytes # (Auto) 0.91 0.11-0.59 K/uL Eosinophils # (Auto) 0.20 0-0.5 K/uL Basophils # (Auto) 0.01 0-0.2 K/uL RDW Standard Deviation 43.5 36.4-46.3 fL RDW Coefficient of Variation 13.6 11.5-14.5 % Immature Granulocyte % (Auto) 2.3 % Immature Granulocyte # (Auto) 0.17 0.00-0.02 K/uL Sodium Level 142 136-145 mmol/L Potassium Level 3.8 3.5-5.1 mmol/L Chloride Level 112 98-107 mmol/L Carbon Dioxide Level 20 21-32 mmol/L Anion Gap 10.0 3-11 mmol/L Blood Urea Nitrogen 20 7-18 mg/dl Creatinine 1.50 0.60-1.40 mg/dl Est Creatinine Clear Calc Drug Dose 39.2 ml/min Estimated GFR () 51.7 Estimated GFR (Non- 44.6 BUN/Creatinine Ratio 13.1 10-20 Random Glucose 90 70-99 mg/dl Calcium Level 7.4 8.5-10.1 mg/dl Total Bilirubin 0.5 0.2-1 mg/dl Aspartate Amino Transf (AST/SGOT) 67 15-37 U/L Alanine Aminotransferase (ALT/SGPT) 84 12-78 U/L Alkaline Phosphatase 70 45-117 U/L Total Protein 4.7 6.4-8.2 gm/dl Albumin 2.0 3.4-5.0 gm/dl Globulin 2.7 2.5-4.0 gm/dl Albumin/Globulin Ratio 0.7 0.9-2
[2016-10-22 23:18] VITALS: BP 147/84; PULSE 77; TEMP 37.3; O2SAT 98
[2016-10-23] MEDS: D5W AND NSS 1,000 ML IV SCH ×3 (01:45→18:40)
[2016-10-23] MEDS: CEFOXITIN IV 1,000 MG in DEXTROSE 5% 50ML 50 ML IV SCH ×3 (01:45→17:34)
[2016-10-23 05:55] LABS: HEMATOCRIT 29.8 % (42-52); MEAN CELL VOLUME 88.4 fL (80-100); MEAN CORPUSCULAR HEMOGLOBIN 30.9 pg (25-34); MEAN CORPUSCULAR HGB CONC 34.9 g/dl (32-36); MEAN PLATELET VOLUME 9.2 fL (7.4-10.4); PLATELET COUNT 198 K/uL (130-400); RED BLOOD COUNT 3.37 M/uL (4.7-6.1); WHITE BLOOD COUNT 7.44 K/uL (4.8-10.8)
[2016-10-23 06:20] LABS: BASO % 0.1 %; BASO ABS # 0.01 K/uL (0-0.2); COMPLETE YES; EOS % 2.7 %; IG% 2.3 %; LYMPH % 9.9 %; LYMPH ABS # 0.74 K/uL (1.2-3.4); MONO % 12.2 %; NEUT % 72.8 %
[2016-10-23 06:31] LABS: BUN/CREATININE RATIO 13.1 (10-20); CALCIUM 7.4 mg/dl (8.5-10.1); CREATININE 1.5 mg/dl (0.60-1.40); POTASSIUM 3.8 mmol/L (3.5-5.1)
[2016-10-23 06:33] LABS: ALB/GLOB RATIO 0.7 (0.9-2)
[2016-10-23 07:27] VITALS: BP 129/74; PULSE 71; TEMP 36.3; O2SAT 98
[2016-10-23] MEDS: TAMSULOSIN HCL 0.4 MG CAP PO SCH (08:15)
[2016-10-23] MEDS: PANTOprazole SOD 40 MG TAB PO SCH (08:16)
[2016-10-23] MEDS: FINASTERIDE 5 MG TAB PO SCH (08:16)
[2016-10-23] MEDS: ASPIRIN 81 MG ECTAB PO SCH (08:16)
[2016-10-23] MEDS: PSYLLIUM 58.6% PWD PACK S\\F PO SCH (08:17)
[2016-10-23] MEDS: FEBUXOSTAT 40 MG TAB PO SCH (10:36)
--- NOTE | 2016-10-23 11:16 | Surgery Progress Note ---
Surgery Progress Note Date of Service Oct 23, 2016. Subjective Post OP Day: 6 + diet (tolerated liquids), + feeling well, No nausea, No vomiting Objective Vital Signs: Date Time Temp Pulse Resp B/P Pulse Ox O2 Delivery O2 Flow Rate FiO2 10/23/16 07:50 Room Air 10/23/16 07:27 36.3 71 16 129/74 98 Room Air 10/22/16 23:25 Room Air 10/22/16 23:18 37.3 77 19 147/84 98 Room Air 10/22/16 15:45 Room Air 10/22/16 15:11 36.5 71 16 129/80 98 Room Air Abdomen: normal bowel sounds, non tender, non distended, soft Laboratory Results: Results Past 24 Hours Test 10/23/16 05:22 Range/Units White Blood Count 7.44 4.8-10.8 K/uL Red Blood Count 3.37 4.7-6.1 M/uL Hemoglobin 10.4 14.0-18.0 g/dL Hematocrit 29.8 42-52 % Mean Corpuscular Volume 88.4 80-100 fL Mean Corpuscular Hemoglobin 30.9 25-34 pg Mean Corpuscular Hemoglobin Concent 34.9 32-36 g/dl Platelet Count 198 130-400 K/uL Mean Platelet Volume 9.2 7.4-10.4 fL Neutrophils (%) (Auto) 72.8 % Lymphocytes (%) (Auto) 9.9 % Monocytes (%) (Auto) 12.2 % Eosinophils (%) (Auto) 2.7 % Basophils (%) (Auto) 0.1 % Neutrophils # (Auto) 5.41 1.4-6.5 K/uL Lymphocytes # (Auto) 0.74 1.2-3.4 K/uL Monocytes # (Auto) 0.91 0.11-0.59 K/uL Eosinophils # (Auto) 0.20 0-0.5 K/uL Basophils # (Auto) 0.01 0-0.2 K/uL RDW Standard Deviation 43.5 36.4-46.3 fL RDW Coefficient of Variation 13.6 11.5-14.5 % Immature Granulocyte % (Auto) 2.3 % Immature Granulocyte # (Auto) 0.17 0.00-0.02 K/uL Sodium Level 142 136-145 mmol/L Potassium Level 3.8 3.5-5.1 mmol/L Chloride Level 112 98-107 mmol/L Carbon Dioxide Level 20 21-32 mmol/L Anion Gap 10.0 3-11 mmol/L Blood Urea Nitrogen 20 7-18 mg/dl Creatinine 1.50 0.60-1.40 mg/dl Est Creatinine Clear Calc Drug Dose 39.2 ml/min Estimated GFR () 51.7 Estimated GFR (Non- 44.6 BUN/Creatinine Ratio 13.1 10-20 Random Glucose 90 70-99 mg/dl Calcium Level 7.4 8.5-10.1 mg/dl Total Bilirubin 0.5 0.2-1 mg/dl Aspartate Amino Transf (AST/SGOT) 67 15-37 U/L Alanine Aminotransferase (ALT/SGPT) 84 12-78 U/L Alkaline Phosphatase 70 45-117 U/L Total Protein 4.7 6.4-8.2 gm/dl Albumin 2.0 3.4-5.0 gm/dl Globulin 2.7 2.5-4.0 gm/dl Albumin/Globulin Ratio 0.7 0.9-2 Assessment & Plan S/P lap jillian Constipation resolved Urinating without Dinero Urine output increased with increased IV fluids Creatinine decreased again today Can advance to soft diet Can shower
[2016-10-23 14:53] VITALS: BP 124/72; PULSE 61; TEMP 36.6; O2SAT 98
[2016-10-23 16:15] VITALS: O2SAT 98
--- NOTE | 2016-10-23 16:55 | Progress Note ---
Internal Med Progress Note Date of Service: Oct 23, 2016. Provider Documentation: SUBJECTIVE: Patient is sitting in his bed in no apparent distress. Still c/o feeling of fullness in abdomen but is better. Had a few watery BMs earlier today. Had some nausea earlier but no vomiting. Tolerating liquid diet so far.Ambulating in the hallway. OBJECTIVE: Vital Signs-as noted below Examination: General Appearance: WD/WN, no apparent distress Head: normocephalic, atraumatic Eyes: normal inspection, EOMI, sclerae normal ENT: normal ENT inspection, hearing grossly normal, pharynx normal Neck: supple, no adenopathy, thyroid normal, no JVD, trachea midline Respiratory/Chest: chest non-tender, lungs clear, normal breath sounds, no respiratory distress, no accessory muscle use Cardiovascular: regular rate, rhythm, no murmur Abdomen/GI: normal bowel sounds, soft, Mild to moderate pain on deep palpation to RLQ and suprapubic region,mild distention, No gaurding. Back: normal inspection, no CVA tenderness Extremities/Musculoskeletal: normal inspection, no calf tenderness, no pedal edema Neurologic/Psych: home paraprofessional II-XII nml as tested, no motor/sensory deficits, alert, normal mood/affect, normal reflexes, oriented x 3 Skin: normal color Lab data as noted below. ASSESSMENT & PLAN: CT Abdomen/Pelvis IMPRESSION: 1. Postoperative changes consistent with a recent cholecystectomy. 2. Small amount of ascites within the abdomen as well as pelvic regions. 3. Trace amount free intraperitoneal air most likely postoperative. 4. Bibasilar atelectatic change. 5. Mild nonobstructive ileus NUCLEAR MEDICINE HEPATOBILIARY SCAN FINDINGS: The patient was injected with 5.3 mCi of technetium 99m Choletec.Sequential anterior imaging was performed. Delayed images were also acquired. There is normal patches of activity into small bowel. There is reflux of activity into the stomach. Delayed images reveal no free activity within the peritoneal cavity. There are no subcapsular collections. IMPRESSION: No scintigraphic evidence of a bile leak. Abdominal Bloating with Nausea: S/P Laparoscopic Cholecystectomy & Adhesiolysis on 10/17/2016: Clinically doing well. ?? Mild Ileus. Is afebrile and has no leukocytosis. -Reviewed radiologic studies which R/O Bile leak. -LFT are in normal limits -Diet has been advanced. -Reviewed surgical input. Thanks Constipation: MOM as needed. Urinary Retention: Post-operatively. -Advised nursing staff to discontinue Dinero catheter. -Trial of voiding when able History CAD S/P Bare metal Stent: Stable. As per Sponge Clipper, maintain on Aspirin with no interruption, HOLD Plavix if surgery contemplated continue Aspirin, HOLD Plavix for now BP marginal, hold Lisinopril and Hydralazine History Hypertension: BP marginal. Holding Lisinopril and Hydralazine CKD Stage III: Baseline Creatinine 1.5 History BPH: Stable. Continue Finasteride, Tamsulosin History C. Diff: Stable. Code Status: FULL CODE DVT Prophylaxis: SCDs & Ambulation. Disposition: Anticipate d/c home when medically stable Vital Signs: Date Time Temp Pulse Resp B/P Pulse Ox O2 Delivery O2 Flow Rate FiO2 10/23/16 14:53 36.6 61 16 124/72 98 Room Air 10/23/16 07:50 Room Air 10/23/16 07:27 36.3 71 16 129/74 98 Room Air 10/22/16 23:25 Room Air 10/22/16 23:18 37.3 77 19 147/84 98 Room Air Lab Results: Results Past 24 Hours Test 10/23/16 05:22 Range/Units White Blood Count 7.44 4.8-10.8 K/uL Red Blood Count 3.37 4.7-6.1 M/uL Hemoglobin 10.4 14.0-18.0 g/dL Hematocrit 29.8 42-52 % Mean Corpuscular Volume 88.4 80-100 fL Mean Corpuscular Hemoglobin 30.9 25-34 pg Mean Corpuscular Hemoglobin Concent 34.9 32-36 g/dl Platelet Count 198 130-400 K/uL Mean Platelet Volume 9.2 7.4-10.4 fL Neutrophils (%) (Auto) 72.8 % Lymphocytes (%) (Auto) 9.9 % Monocytes (%) (Auto) 12.2 % Eosinophils (%) (Auto) 2.7 % Basophils (%) (Auto) 0.1 % Neutrophils # (Auto) 5.41 1.4-6.5 K/uL Lymphocytes # (Auto) 0.74 1.2-3.4 K/uL Monocytes # (Auto) 0.91 0.11-0.59 K/uL Eosinophils # (Auto) 0.20 0-0.5 K/uL Basophils # (Auto) 0.01 0-0.2 K/uL RDW Standard Deviation 43.5 36.4-46.3 fL RDW Coefficient of Variation 13.6 11.5-14.5 % Immature Granulocyte % (Auto) 2.3 % Immature Granulocyte # (Auto) 0.17 0.00-0.02 K/uL Sodium Level 142 136-145 mmol/L Potassium Level 3.8 3.5-5.1 mmol/L Chloride Level 112 98-107 mmol/L Carbon Dioxide Level 20 21-32 mmol/L Anion Gap 10.0 3-11 mmol/L Blood Urea Nitrogen 20 7-18 mg/dl Creatinine 1.50 0.60-1.40 mg/dl Est Creatinine Clear Calc Drug Dose 39.2 ml/min Estimated GFR () 51.7 Estimated GFR (Non- 44.6 BUN/Creatinine Ratio 13.1 10-20 Random Glucose 90 70-99 mg/dl Calcium Level 7.4 8.5-10.1 mg/dl Total Bilirubin 0.5 0.2-1 mg/dl Aspartate Amino Transf (AST/SGOT) 67 15-37 U/L Alanine Aminotransferase (ALT/SGPT) 84 12-78 U/L Alkaline Phosphatase 70 45-117 U/L Total Protein 4.7 6.4-8.2 gm/dl Albumin 2.0 3.4-5.0 gm/dl Globulin 2.7 2.5-4.0 gm/dl Albumin/Globulin Ratio 0.7 0.9-2
[2016-10-23 22:52] VITALS: BP 113/62; PULSE 54; TEMP 37.1; O2SAT 97
[2016-10-24] MEDS: CEFOXITIN IV 1,000 MG in DEXTROSE 5% 50ML 50 ML IV SCH ×2 (01:42→10:07)
[2016-10-24] MEDS: D5W AND NSS 1,000 ML IV SCH ×2 (01:44→10:06)
[2016-10-24 05:30] LABS: HEMATOCRIT 29.4 % (42-52); MEAN CELL VOLUME 88.3 fL (80-100); MEAN CORPUSCULAR HEMOGLOBIN 30.6 pg (25-34); MEAN CORPUSCULAR HGB CONC 34.7 g/dl (32-36); MEAN PLATELET VOLUME 8.8 fL (7.4-10.4); PLATELET COUNT 197 K/uL (130-400); RED BLOOD COUNT 3.33 M/uL (4.7-6.1); WHITE BLOOD COUNT 6.42 K/uL (4.8-10.8)
[2016-10-24 05:56] LABS: BUN/CREATININE RATIO 11.6 (10-20); CALCIUM 7.2 mg/dl (8.5-10.1); CREATININE 1.6 mg/dl (0.60-1.40)
--- NOTE | 2016-10-24 06:34 | Clinical Documentation Query ---
CLINICAL DOCUMENTATION QUERY 76 year old male with CKD 3 with a baseline creatinine of 1.5-1.7.who is s/p laparoscopic cholecystectomy presents to the Emergency Room with complaints of persistent right upper quadrant abdominal pain. In your clinical opinion is this patient being managed for: ( X ) Acute kidney failure on CKD stage 3 treated with IVF's and daily PRP's See my note from today. Thanks ( ) Other explanation of clinical findings (Please Explain) ( ) Unable to determine (Please Define) ( ) Need to Discuss ( ) Not Agree The medical record reflects the following clinical findings, treatment, and risk factors. Clinical Indicators: BUN 31, Creatinine 2.40, GFR 25.3, Baseline creatinine appears 1.5-1.7. Treatment: IVF's with boluses, daily PRP's, Dinero, I/O's Risk Factors: Age, ?ileus, decreased PO intake, urinary retention, and CKD 3. Please clarify and document your clinical opinion in the progress notes and discharge summary. Terms such as "probable", "suspected", "likely", "questionable", "possible", or "still to be ruled out" are acceptable. IF IN AGREEMENT, YOU MUST DOCUMENT ABOVE DIAGNOSTIC STATEMENT IN DAILY PROGRESS NOTES AND DISCHARGE SUMMARY. This document is not part of the patient's record. Thank You, Wilfrid Shah RN [phone]
[2016-10-24 07:12] VITALS: BP 135/78; PULSE 52; TEMP 36.3; O2SAT 98
[2016-10-24 07:18] LABS: BASO % 0.2 %; BASO ABS # 0.01 K/uL (0-0.2); COMPLETE YES; EOS % 2.5 %; IG% 3.9 %; MONO % 10.3 %; NEUT % 69.1 %
[2016-10-24] MEDS: PANTOprazole SOD 40 MG TAB PO SCH (08:35)
[2016-10-24] MEDS: FEBUXOSTAT 40 MG TAB PO SCH (08:36)
[2016-10-24] MEDS: PSYLLIUM 58.6% PWD PACK S\\F PO SCH (08:36)
[2016-10-24] MEDS: TAMSULOSIN HCL 0.4 MG CAP PO SCH (08:36)
[2016-10-24] MEDS: FINASTERIDE 5 MG TAB PO SCH (08:36)
[2016-10-24] MEDS: ASPIRIN 81 MG ECTAB PO SCH (08:36)
--- NOTE | 2016-10-24 11:14 | Progress Note ---
Internal Med Progress Note Date of Service: Oct 24, 2016. Provider Documentation: SUBJECTIVE: Patient is sitting in his bed in no apparent distress. Still c/o feeling of less fullness in abdomen but is better. Had a few watery BMs earlier today. Had some nausea earlier but no vomiting. Tolerating liquid diet so far.Ambulating in the hallway. OBJECTIVE: Vital Signs-as noted below Examination: General Appearance: WD/WN, no apparent distress Head: normocephalic, atraumatic Eyes: normal inspection, EOMI, sclerae normal ENT: normal ENT inspection, hearing grossly normal, pharynx normal Neck: supple, no adenopathy, thyroid normal, no JVD, trachea midline Respiratory/Chest: chest non-tender, lungs clear, normal breath sounds, no respiratory distress, no accessory muscle use Cardiovascular: regular rate, rhythm, no murmur Abdomen/GI: normal bowel sounds, soft, Mild to moderate pain on deep palpation to RLQ and suprapubic region,mild distention, No gaurding. 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 ASSESSMENT & PLAN: CT Abdomen/Pelvis IMPRESSION: 1. Postoperative changes consistent with a recent cholecystectomy. 2. Small amount of ascites within the abdomen as well as pelvic regions. 3. Trace amount free intraperitoneal air most likely postoperative. 4. Bibasilar atelectatic change. 5. Mild nonobstructive ileus NUCLEAR MEDICINE HEPATOBILIARY SCAN FINDINGS: The patient was injected with 5.3 mCi of technetium 99m Choletec.Sequential anterior imaging was performed. Delayed images were also acquired. There is normal patches of activity into small bowel. There is reflux of activity into the stomach. Delayed images reveal no free activity within the peritoneal cavity. There are no subcapsular collections. IMPRESSION: No scintigraphic evidence of a bile leak. Abdominal Bloating with Nausea: S/P Laparoscopic Cholecystectomy & Adhesiolysis on 10/17/2016: Clinically doing well. Is afebrile and has no leukocytosis. -Reviewed radiologic studies which R/O Bile leak. -LFT are in normal limits -Diet has been advanced. -Reviewed surgical input. Thanks GRICELDA on CKD Stage III: Resolving. Baseline Creatinine 1.5 -Encouraged to drink more fluids. -Avoid any Nephrotoxin. Constipation: Resolved. MOM as needed. Urinary Retention: Post-operatively. -Advised nursing staff to discontinue Dinero catheter. -Trial of voiding when able History CAD S/P Bare metal Stent: Stable. As per Novelty Chain Maker, maintain on Aspirin with no interruption, HOLD Plavix if surgery contemplated continue Aspirin, HOLD Plavix for now BP marginal, hold Lisinopril and Hydralazine History Hypertension: BP marginal. Holding Lisinopril and Hydralazine History BPH: Stable. Continue Finasteride, Tamsulosin History C. Diff: Stable. Code Status: FULL CODE DVT Prophylaxis: SCDs & Ambulation. Disposition: Discharge home later today. Follow up with PCP on 10/31/2016 @ 10.10 AM. Follow up with Surgery as per their recommendation. Vital Signs: Date Time Temp Pulse Resp B/P Pulse Ox O2 Delivery O2 Flow Rate FiO2 10/24/16 07:45 Room Air 10/24/16 07:12 36.3 52 19 135/78 98 Room Air 10/23/16 23:40 Room Air 10/23/16 22:52 37.1 54 20 113/62 97 Room Air 10/23/16 16:15 98 Room Air 10/23/16 14:53 36.6 61 16 124/72 98 Room Air Lab Results: Results Past 24 Hours Test 10/24/16 05:18 Range/Units White Blood Count 6.42 4.8-10.8 K/uL Red Blood Count 3.33 4.7-6.1 M/uL Hemoglobin 10.2 14.0-18.0 g/dL Hematocrit 29.4 42-52 % Mean Corpuscular Volume 88.3 80-100 fL Mean Corpuscular Hemoglobin 30.6 25-34 pg Mean Corpuscular Hemoglobin Concent 34.7 32-36 g/dl Platelet Count 197 130-400 K/uL Mean Platelet Volume 8.8 7.4-10.4 fL Neutrophils (%) (Auto) 69.1 % Lymphocytes (%) (Auto) 14.0 % Monocytes (%) (Auto) 10.3 % Eosinophils (%) (Auto) 2.5 % Basophils (%) (Auto) 0.2 % Neutrophils # (Auto) 4.44 1.4-6.5 K/uL Lymphocytes # (Auto) 0.90 1.2-3.4 K/uL Monocytes # (Auto) 0.66 0.11-0.59 K/uL Eosinophils # (Auto) 0.16 0-0.5 K/uL Basophils # (Auto) 0.01 0-0.2 K/uL RDW Standard Deviation 44.1 36.4-46.3 fL RDW Coefficient of Variation 13.5 11.5-14.5 % Immature Granulocyte % (Auto) 3.9 % Immature Granulocyte # (Auto) 0.25 0.00-0.02 K/uL Sodium Level 144 136-145 mmol/L Potassium Level 4.0 3.5-5.1 mmol/L Chloride Level 115 98-107 mmol/L Carbon Dioxide Level 22 21-32 mmol/L Anion Gap 7.0 3-11 mmol/L Blood Urea Nitrogen 19 7-18 mg/dl Creatinine 1.60 0.60-1.40 mg/dl Est Creatinine Clear Calc Drug Dose 36.7 ml/min Estimated GFR () 47.8 Estimated GFR (Non- 41.2 BUN/Creatinine Ratio 11.6 10-20 Random Glucose 87 70-99 mg/dl Calcium Level 7.2 8.5-10.1 mg/dl
[2016-10-24] MEDS ORDERED: PRT40 PO (11:15)
[2016-10-24] MEDS ORDERED: MYL80 PO (11:15)
--- NOTE | 2016-10-24 11:18 | Discharge Instructions ---
Discharge Instructions Date of Service Oct 24, 2016. Admission Reason for Admission: Nausea Discharge Discharge Diagnosis / Problem: Persistent Nausea. Abdominal Bloating Discharge Goals Goal(s): Decrease discomfort, Improve function, Increase independence, Improve disease control, Improve nutritional status, Learn about illness, Diagnostic testing, Therapeutic intervention Activity Recommendations Activity Limitations: resume your previous activity (As tolerated.) Lifting Limitations: until after follow-up appointment Exercise/Sports Limitations: until after follow-up appointment May Resume Sexual Activity: after follow-up appointment Shower/Bathe: no limitations Driving or Machine Use: no limitations . Instructions / Follow-Up Instructions / Follow-Up 1. take all the medications as directed. 2. Continue with soft & liquid diet and gradually advance it as tolerated. 3. Use stool softener only as needed 4. Monitor your blood pressure and alert taking the BP medications if BP starts rising. 5. Avoid lifting any heavy object for one week. Follow up with PCP on 10/31/2016 @ 10.10 AM. Follow up with Surgery as per their recommendation. Current Hospital Diet Patient's current hospital diet: Low Fiber Diet Discharge Diet Recommended Diet: AHA Diet (Heart Healthy) (Low Fiber Soft Diet) Pending Studies Studies pending at discharge: no Medical Emergencies . Who to Call and When: Medical Emergencies: If at any time you feel your situation is an emergency, please call 911 immediately. . Non-Emergent Contact Non-Emergency issues call your: Primary Care Provider, Surgeon Call Non-Emergent contact if: you have a fever, your pain is worsening, wound has increased pain . . "Provider Documentation" section prepared by Reilly Hernandez. VTE Core Measure Inpt VTE Proph given/why not?: SCD's
[2016-10-24 11:23] VITALS: BP 135/78; PULSE 52; TEMP 36.3; O2SAT 98
--- NOTE | 2016-10-24 11:23 | Discharge Summary ---
Discharge Summary Date of Service Oct 24, 2016. Discharge Summary Admission Date: Oct 21, 2016 at 00:46 Discharge Date: Oct 24, 2016 Discharge Disposition: Home Principal Diagnosis: Abdominal Bloating with nausea GRICELDA on CKD Stage III Secondary Diagnoses/Problems: Urinary Retention History Constipation BPH History CAD Hypertension History C. Diff Procedures: CT Abdomen/Pelvis Vaccinations: NONE Consultations: General Surgery Medication Reconciliation New Medications: Pantoprazole (Pantoprazole Sodium) 40 Mg Tab 40 MG PO QAM, #30 TAB Simethicone (Mi-Acid Gas Relief) 80 Mg Chew 80 MG PO Q6H PRN for DYSPEPSIA, BLOATING, #30 Continued Medications: Aspirin (Aspirin Ec) 81 Mg Tab 81 MG PO QAM Atorvastatin (Lipitor) 40 Mg Tab 40 MG PO QAM, TAB Clopidogrel Bisulfate (Clopidogrel) 75 Mg Tab 75 MG PO QAM, #30 Febuxostat (Uloric) 40 Mg Tab 40 MG PO QAM Finasteride (Proscar) 5 Mg Tab 5 MG PO QAM, TAB Nitroglycerin (Nitrostat) 0.4 Mg Tab 0.4 MG UT PRN, BTL NEEDED FOR CHEST PAIN : ONE TABLET UNDER THE TONGUE EVERY 5 MINUTES UP TO 3 DOSES. Psyllium (Metamucil) 0.52 Gm Cap 1 DOSE PO DAILY TAKES ANYTIME Tamsulosin Hcl (Flomax) 0.4 Mg Cap 0.4 MG PO QAM, CAP Discontinued Medications: Hydralazine Hcl (Apresoline) 50 Mg Tab 25 MG PO TID, TAB Lisinopril (Zestril) 40 Mg Tab 40 MG PO QAM, TAB Admission Information HPI (per Admitting provider): 76 year old male with history of CAD, s/p Bare Metal Stent Placement to LAD in 2013, Hypertension, CKD 3, and other problems noted below presenting with abdominal bloating x [address] Van for PCP. Last 10/17/16, patient underwent Laparoscopic Cholecystectomy with Lysis of Adhesions for Cholecystitis/Cholelithiasis by Dr. Deluna. He was discharge the same day. Patient was apparently doing well until 2 days prior to admission when he started to have abdominal bloating and nausea. Denies fever/chills, dyspnea, chest pain. Patient was constipated and had fleet edema done yesterday with good bowel movement. He also noted urinary retention since after the surgery and a Dinero Catheter has been placed in the outpatient clinic. Patient's abdominal bloating and nausea persisted and was advised by Dr. Sun to proceed to the ED. Preliminary CT abdomen report reveals fluid in the intraperitoneal cavity, r/o Biliary Leak. LFTs and WBC within normal limits. On exam, patient resting in bed, comfortable except for abdominal bloating. Denies active abdominal pain, nausea, chest pain, dyspnea. No other symptoms. Physical Exam (per Admitting): General Appearance: WD/WN, no apparent distress Head: normocephalic, atraumatic Eyes: normal inspection, EOMI, sclerae normal ENT: normal ENT inspection, hearing grossly normal, pharynx normal Neck: supple, no adenopathy, thyroid normal, no JVD, trachea midline Respiratory/Chest: chest non-tender, lungs clear, normal breath sounds, no respiratory distress, no accessory muscle use Cardiovascular: regular rate, rhythm, no murmur Abdomen/GI: normal bowel sounds, soft, + tenderness (moderate tenderness to RLQ and suprapubic region), + distended (mild distention), + pertinent finding ( no guarding) Back: normal inspection, no CVA tenderness Extremities/Musculoskelatal: normal inspection, no calf tenderness, no pedal edema Neurologic/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 Postoperative changes consistent with a recent cholecystectomy. 2. Small amount of ascites within the abdomen as well as pelvic regions. 3. Trace amount free intraperitoneal air most likely postoperative. 4. Bibasilar atelectatic change. 5. Mild nonobstructive ileus NUCLEAR MEDICINE HEPATOBILIARY SCAN FINDINGS: The patient was injected with 5.3 mCi of technetium 99m Choletec.Sequential anterior imaging was performed. Delayed images were also acquired. There is normal patches of activity into small bowel. There is reflux of activity into the stomach. Delayed images reveal no free activity within the peritoneal cavity. There are no subcapsular collections. IMPRESSION: No scintigraphic evidence of a bile leak. Abdominal Bloating with Nausea: S/P Laparoscopic Cholecystectomy & Adhesiolysis on 10/17/2016: Clinically doing well. Is afebrile and has no leukocytosis. -Reviewed radiologic studies which R/O Bile leak. -LFT are in normal limits -Diet has been advanced. -Reviewed surgical input. Thanks GRICELDA on CKD Stage III: Resolving. Baseline Creatinine 1.5 -Encouraged to drink more fluids. -Avoid any Nephrotoxin. Constipation: Resolved. MOM as needed. Urinary Retention: Post-operatively. -Advised nursing staff to discontinue Dinero catheter. -Trial of voiding when able History CAD S/P Bare metal Stent: Stable. As per Printed Products Assembler, maintain on Aspirin with no interruption, HOLD Plavix if surgery contemplated continue Aspirin, HOLD Plavix for now BP marginal, hold Lisinopril and Hydralazine History Hypertension: BP marginal. Holding Lisinopril and Hydralazine History BPH: Stable. Continue Finasteride, Tamsulosin History C. Diff: Stable. Code Status: FULL CODE DVT Prophylaxis: SCDs & Ambulation. Disposition: Discharge home later today. Follow up with PCP on 10/31/2016 @ 10.10 AM. Follow up with Surgery as per their recommendation. Total time spent on discharge = 40 minutes. This includes examination of the patient, discharge planning, medication reconciliation, and communication with other providers. Discharge Instructions Activity Recommendations Activity Limitations: resume your previous activity (As tolerated.) Lifting Limitations: until after follow-up appointment Exercise/Sports Limitations: until after follow-up appointment May Resume Sexual Activity: after follow-up appointment Shower/Bathe: no limitations Driving or Machine Use: no limitations . Instructions / Follow-Up Instructions / Follow-Up 1. take all the medications as directed. 2. Continue with soft & liquid diet and gradually advance it as tolerated. 3. Use stool softener only as needed 4. Monitor your blood pressure and alert taking the BP medications if BP starts rising. 5. Avoid lifting any heavy object for one week. Follow up with PCP on 10/31/2016 @ 10.10 AM. Follow up with Surgery as per their recommendation. Current Hospital Diet Patient's current hospital diet: Low Fiber Diet Discharge Diet Recommended Diet: AHA Diet (Heart Healthy) (Low Fiber Soft Diet) Additional Copies To Jeremiah Van D.O. Armstrong, David C., M.D.
--- NOTE | 2016-10-24 11:27 | Surgery Progress Note ---
Surgery Progress Note Date of Service Oct 24, 2016. Subjective Post OP Day: POD # 7 s/p Laparoscopic Cholecystectomy and lysis of adhesions + ambulating, + bowel movement, + diet (tolerating soft diet), + feeling well, + flatus, + pain controlled, No nausea, No vomiting Objective Vital Signs: Date Time Temp Pulse Resp B/P Pulse Ox O2 Delivery O2 Flow Rate FiO2 10/24/16 07:45 Room Air 10/24/16 07:12 36.3 52 19 135/78 98 Room Air 10/23/16 23:40 Room Air 10/23/16 22:52 37.1 54 20 113/62 97 Room Air 10/23/16 16:15 98 Room Air 10/23/16 14:53 36.6 61 16 124/72 98 Room Air General Appearance: WD/WN, no apparent distress Head: normocephalic, atraumatic Neck: trachea midline Respiratory/Chest: no respiratory distress, no accessory muscle use Abdomen: non distended, soft, + tenderness (at umbilicus) Incision(s): clean, dry, intact, erythema (surrounding umbilical incision) Laboratory Results: Results Past 24 Hours Test 10/24/16 05:18 Range/Units White Blood Count 6.42 4.8-10.8 K/uL Red Blood Count 3.33 4.7-6.1 M/uL Hemoglobin 10.2 14.0-18.0 g/dL Hematocrit 29.4 42-52 % Mean Corpuscular Volume 88.3 80-100 fL Mean Corpuscular Hemoglobin 30.6 25-34 pg Mean Corpuscular Hemoglobin Concent 34.7 32-36 g/dl Platelet Count 197 130-400 K/uL Mean Platelet Volume 8.8 7.4-10.4 fL Neutrophils (%) (Auto) 69.1 % Lymphocytes (%) (Auto) 14.0 % Monocytes (%) (Auto) 10.3 % Eosinophils (%) (Auto) 2.5 % Basophils (%) (Auto) 0.2 % Neutrophils # (Auto) 4.44 1.4-6.5 K/uL Lymphocytes # (Auto) 0.90 1.2-3.4 K/uL Monocytes # (Auto) 0.66 0.11-0.59 K/uL Eosinophils # (Auto) 0.16 0-0.5 K/uL Basophils # (Auto) 0.01 0-0.2 K/uL RDW Standard Deviation 44.1 36.4-46.3 fL RDW Coefficient of Variation 13.5 11.5-14.5 % Immature Granulocyte % (Auto) 3.9 % Immature Granulocyte # (Auto) 0.25 0.00-0.02 K/uL Sodium Level 144 136-145 mmol/L Potassium Level 4.0 3.5-5.1 mmol/L Chloride Level 115 98-107 mmol/L Carbon Dioxide Level 22 21-32 mmol/L Anion Gap 7.0 3-11 mmol/L Blood Urea Nitrogen 19 7-18 mg/dl Creatinine 1.60 0.60-1.40 mg/dl Est Creatinine Clear Calc Drug Dose 36.7 ml/min Estimated GFR () 47.8 Estimated GFR (Non- 41.2 BUN/Creatinine Ratio 11.6 10-20 Random Glucose 87 70-99 mg/dl Calcium Level 7.2 8.5-10.1 mg/dl Assessment & Plan POD # 7 s/p Laparoscopic Cholecystectomy and lysis of adhesions - adequate urinary output - Urine Culture negative - Tolerated advanced diet - abdominal pain minimal, mostly around umbilical incision Plan: Patient being discharged home today Discharge instructions regarding surgery already given to patient post-op Has follow-up appointment this Monday Advised to call office if there is increasing pain or redness of umbilical incision, pt understood. Dr. Deluna has seen and examined patient, developed assessment and plan.
--- NOTE | 2016-10-26 12:27 | EDITING REQUIRED CODING QUERY ---
CODING QUERY To promote full compliance with coding requirements relating to patient care, provider participation is requested in all cases of certified scrub tech uncertainty. Please assist us with the question(s) below: Coding Question(s): Patient admitted 3 days s/p cholecystectomy for abdominal pain. Bile leak ruled out. Progress notes document Ileus present on admission. Please check below the phrase that describes the Ileus. Thanks for your help! Ashutosh Fragoso GEAR TESTER [facility] Physician's Response(s): The Ileus is not considered a complication of prior procedure- it is incidental to procedure The Ileus is a complication of the cholecystectomy Cannot clinically correlate if Ileus is a complication of procedure Other/ Please document: As per my clinical judgment, there was no issue of ileus in this case. Rather the patient was constipated. Work up included to R/O Biliary leak. If further clarification is needed, I would request to refer to General Surgery As well. Thanks Principal Diagnosis: "_that condition established after study, to be chiefly responsible for occasioning the admission of the patient to the hospital for care." Co-Existing Principal Diagnosis: "_when two or more diagnoses equally meet the criteria for principal diagnosis as determined by the circumstances of admission, diagnostic work up, and/or therapy provided, and the Alphabetic Index, Tabular List, or another coding guideline does not provide sequencing direction, any one of the diagnoses may be sequenced first." "When the physician has documented what appears to be a current diagnosis in the body of the record, but has not included the diagnosis in the final diagnostic statement, the physician should be asked whether the diagnosis should be added." (Source Coding [facility] 2 QTR90. p3-4)
== END 2016-10-24 13:35 | disposition home or self-care (01) | DRG 394 ==
LOC: ENRESERVDT → ENRESERVTM → C.EDB 20:35 → C.3E 10-21 00:46
PROVIDERS: ADMIT Internal Medicine; ATTEND Emergency Medicine
DX: K91.3 Postprocedural intestinal obstruction (principal); N17.9 Acute kidney failure, unspecified; R18.8 Other ascites; J98.11 Atelectasis; I12.9 Hypertensive chronic kidney disease with stage 1 through stage 4 chronic kidney disease, or unspecified chronic kidney disease; N18.3 Chronic kidney disease, stage 3 (moderate); M10.9 Gout, unspecified; G62.9 Polyneuropathy, unspecified; I73.00 Raynaud's syndrome without gangrene; K57.30 Diverticulosis of large intestine without perforation or abscess without bleeding; Z87.891 Personal history of nicotine dependence; I25.10 Atherosclerotic heart disease of native coronary artery without angina pectoris; Z95.5 Presence of coronary angioplasty implant and graft; Z98.890 Other specified postprocedural states; K59.00 Constipation, unspecified; N40.1 Benign prostatic hyperplasia with lower urinary tract symptoms; R33.8 Other retention of urine; Z88.2 Allergy status to sulfonamides; Z88.0 Allergy status to penicillin

== ENCOUNTER 2020-10-26 07:52 | Observation (INO) ==
--- NOTE | 2020-10-22 08:57 | Anesthesiology Consultation ---
Date of Service October 22, 2020 Assessment & Plan (1) Encounter for pre-operative examination: - Per assessment on 10/21: Travel screen negative. No known COVID-19 positive contacts or current COVID-19 related symptoms. Surgeon arranged preop COVID testing (done 10/21 [facility]- negative). - Cardiology office visit: "history of coronary artery disease and a bare metal stent placed in 2013 in the LAD. Following that procedure he has done well. He returned today and has no new cardiac complaints.. Stable coronary artery disease.. From a cardiac standpoint the patient is stable. He will continue his current medications and I plan follow-up on an annual or as-needed basis." 05/[address] Ferreira- he feels okay to proceed with surgery as scheduled without further cardiac testing and/or evaluation. Chart Review Chart Review: Acceptable Risk for Surgery (pending evaluation AM DOS) and Patient NOT seen in Pre Admission Testing History Surgery Operation Date: 10/26/20 09:45 Proposed Procedures p Open Repair Ventral Hernia Possible Mesh - Sheyla Jewell MD Height/Weight Height: 5 ft 7 in Weight: 79.379 kg Allergies Allergy/AdvReac Type Severity Reaction Status Date / Time allopurinol Allergy Severe Facial/tongue Verified 10/26/20 08:16 swelling Sulfa (Sulfonamide Allergy Severe Mouth Verified 10/26/20 08:16 Antibiotics) swelling Penicillins Allergy Intermediate Hives Verified 10/26/20 08:16 ethacrynic acid Allergy Mild Rash Unverified 10/26/20 08:16 vancomycin Allergy Mild Rash Verified 10/26/20 08:16 indapamide Allergy Unknown Unknown Verified 10/26/20 08:16 trichlormethiazide AdvReac Severe "Intolerance" Verified 10/26/20 08:[address] De León amlodipine AdvReac Intermediate "Intolerance" Verified 10/26/20 08:[address] [facility] [address] De León Beta-Blockers AdvReac Mild Bradycardia Unverified 10/26/20 08:16 (Beta-Adrenergic Bloc valproic acid AdvReac Mild Diarrhea Verified 10/26/20 08:16 Cipro AdvReac Unknown SHAKEY Verified 10/20/16 22:15 DIZZY ciprofloxacin [Cipro] AdvReac Unknown Shakiness, Verified 10/26/20 08:16 dizziness Cantaloupe Allergy Intermediate Hives, rash Uncoded 10/26/20 08:16 Medications Home Medications Medication Instructions Recorded Confirmed Last Taken aspirin [Aspir-81] 81 mg PO QAM 10/21/20 10/26/20 10/21/20 atorvastatin 40 mg PO QAM 10/21/20 10/26/20 10/25/20 07:00 cholecalciferol (vitamin D3) 25 mcg PO QAM 10/21/20 10/26/20 10/25/20 07:00 [Vitamin D3] febuxostat [Uloric] 80 mg PO QAM 10/21/20 10/26/20 10/25/20 07:00 finasteride 5 mg PO QAM 10/21/20 10/26/20 10/25/20 07:00 hydralazine 50 mg PO QAM 10/21/20 10/26/20 10/25/20 07:00 lisinopril 40 mg PO QAM 10/21/20 10/26/20 10/25/20 07:00 nitroglycerin 0.4 mg SUBLINGUAL UD PRN 10/21/20 10/26/20 Unknown pantoprazole [Protonix] 40 mg PO QAM 10/21/20 10/26/20 10/26/20 07:00 tamsulosin 0.4 mg PO QAM 10/21/20 10/26/20 10/25/20 07:00 Active Medications Generic Name Dose Route Start Last Admin Trade Name Freq PRN Reason Stop Dose Admin Lactated Ringer's 1,000 mls @ 15 mls/hr 10/26/20 06:00 10/26/20 08:35 Lr IV 10/27/20 05:59 15 mls/hr .Q24H JOLYL Administration Past Medical History Medical History CAD (coronary artery disease) stent x1 to RCA (2013), follows with Dr. Willett Chronic kidney disease GERD (gastroesophageal reflux disease) Hx of gout Hyperlipidemia Hypertension Lung nodules Myocardial Infarction 2013 > stent x1 Osteoarthritis Thyroid nodule Past Family History Family History Other No family history of adverse response to anesthesia Past Surgical History Surgical History History of cataract surgery R/L History of cholecystectomy History of colonoscopy History of esophagogastroduodenoscopy (EGD) History of heart artery stent 2014 > stent x1 History of herniorrhaphy x3 History of tonsillectomy and adenoidectomy History of tooth extraction Social History Smoking Status: Former smoker tobacco type: cigarettes Do You Dip or Chew Tobacco: No Smoking End Date: QUIT OVER 50 YEARS Hx Alcohol Use: No substance use type: does not use Physical Exam Vital Signs Last Vital Signs Temp 36.5 C 10/26/20 08:22 Pulse 71 10/26/20 08:22 Resp 18 10/26/20 08:22 BP 179/95 H 10/26/20 08:22 Pulse Ox 98 10/26/20 08:22 Testing Laboratory Results 10/21/20 WBC 5.96 H/H 13.5/41.2 PLATELETS 192 SODIUM 142 POTASSIUM 4.0 CHLORIDE 106 CO2 24 BUN 21 CREATININE 1.7 (GFR 36.2) GLUCOSE 108 TSH 0.51 (WNL) FREE T4 1.3 (WNL) Electrocardiogram Date: 05/26/20 SR with first degree AVB at 63bpm. ST/TWA, consider inferior ischemia (subtle TWI vs. NS TWA in lead III/AVF > per meter reader chief comparison, no significant change compared to 05/22/18, EKG was done at meter reader chief appt in which no further testing recommended and patient recommended to f/u in one year or on an as needed basis. No cardiopulmonary complaints per recent PAT RN interview) Stress Test Date: 04/01/15 Type: exercise Stress echo negative for inducible ischemia. No stress EKG changes. 88% MPHR. 8.5 METS. EF 50-55%. Other Testing CT chest: 09/30/20: stable lung nodules. 2.5cm thyroid nodule. no pleural effusions. atherosclerotic changes in the aorta and coronary arteries. Mild to moderate hiatal hernia.
[~2020-10-26 07:52] MED LIST changes: -ASPI81TA28 PO; -ATOR-24 PO; +CLINDAMYCIN 600 MG/54 ML BAG IV SCH; -COLC0.6T54 PO; -FEBU40TA PO; -FINA5TAB PO; -HYDR-4717 PO; -KETOCONAZOLE 2% TOP; +LACTATED RINGER'S 1,000 ML IV SCH; -LISI40TA PO; -NTRGSL/4 UT; -PLV75 PO; -PSYL0.524 PO; -TAMS0.4C38 PO
--- NOTE | 2020-10-26 08:20 | History & Physical Bridge Note ---
Date of Service October 26, 2020 History & Physical Bridge Note I have examined the patient, reviewed the History & Physical and in the interval since the performance of the History & Physical I have noted the following changes of clinical significance: no changes noted
[2020-10-26] MEDS ORDERED: MIDAZOLAM HCL 1 MG/ML 2ML VIAL ONE (08:43)
[2020-10-26] MEDS ORDERED: fentaNYL citrate 100 MCG/2 ML VIAL ONE (08:43)
[2020-10-26] MEDS ORDERED: BUPIVACAINE 0.5 % 5 MG/1 ML MPF 30ML VIAL ONE (08:52)
[2020-10-26] MEDS ORDERED: LIDOCAINE HCL 1% 20 ML VIAL ONE (08:52)
[2020-10-26] MEDS ORDERED: BACITRACIN OINT 15 GM TUBE ONE (08:52)
[2020-10-26] MEDS ORDERED: ONDANSETRON INJ 2 MG/ML 2 ML VIAL IV PRN ×2 (09:04→10:03)
[2020-10-26] MEDS ORDERED: fentaNYL citrate 100 MCG/2 ML VIAL IV PRN (09:04)
[2020-10-26] MEDS ORDERED: ePHEDrine sulfate 50 MG/ML AMP IV PRN (09:04)
[2020-10-26] MEDS ORDERED: ATROPINE SULFATE 0.1 MG/ML 10ML SYR IV PRN (09:04)
[2020-10-26] MEDS ORDERED: PROPOFOL IV EMULSION 10 MG/ML 20 ML VIAL IV ONE (09:50)
[2020-10-26] MEDS ORDERED: ONDANSETRON INJ 2 MG/ML 2 ML VIAL ONE (09:50)
[2020-10-26] MEDS ORDERED: NEOSTIGMINE METHYLSULFATE 5 MG/5 ML SYR ONE (09:50)
[2020-10-26] MEDS ORDERED: ROCURONIUM BROMIDE 10 MG/ML 5 ML VIAL IV ONE (09:50)
[2020-10-26] MEDS ORDERED: GLYCOPYRROLATE 0.2 MG/ML VIAL ONE (09:50)
[2020-10-26] MEDS ORDERED: LIDOCAINE HCL 2% 2 ML VIAL/AMP(20MG/ML) INFIL ONE (09:50)
--- NOTE | 2020-10-26 09:58 | Post Operative Brief Note ---
Immediate Post Op Note v1 Date of Surgery October 26, 2020 Pre & Post Diagnosis Operation Date: 10/26/20 09:45 Pre-Op Diagnosis: Incisional Hernia, without Obstruction or Gangrene Post-Op Diagnosis: Incisional Hernia, without Obstruction or Gangrene I identified the patient and participated in the time-out.: Yes Procedure Operation Date: 10/26/20 09:45 Actual Procedures p Open Repair Ventral Hernia WITH Mesh - Sheyla Jewell MD Surgeon Sheyla Jewell MD Decision Support Analyst REIMBURSEMENT COORDINATOR Estimated Blood Loss 5 Findings Consistent with Post-Op Diagnosis INCISIONAL HERNIA , SIZE 3X3CM, Fluids 400ML Specimens HERNIA SAC Anesthesia Type General Complications none Disposition Accompanied Patient To Recovery: Yes Disposition: Recovery Room Overlapping Procedure I was immediately available: during the entire case.
[2020-10-26] MEDS ORDERED: oxyCODONE/ACETAMINOPHEN 5mg/325mg TAB PO PRN (10:03)
[2020-10-26] MEDS ORDERED: MoRPHine SULFATE 2 MG/ML CARP IV PRN (10:03)
[2020-10-26] MEDS ORDERED: SODIUM CHLORIDE 0.9% 1000ML 1,000 ML IV SCH (10:15)
--- NOTE | 2020-10-26 10:41 | Anesthesiology Progress Note ---
Date of Service October 26, 2020 Anesthesia Post Procedure Vital Signs Vital Signs: Temp Pulse Pulse Resp BP Pulse Ox 10/26/20 10:30 66 14 147/90 H 96 10/26/20 10:20 70 14 146/89 H 96 10/26/20 10:12 36.1 C L 77 10 L 157/100 H 97 10/26/20 08:22 36.5 C 71 18 179/95 H 98 Pain Intensity Abdomen: Pain Intensity: 0 Transfer of Care Handoff Completed per policy Notes Mental Status: alert / awake / arousable and participated in evaluation Patient Amnestic to Procedure: Yes Nausea / Vomiting: adequately controlled Pain: adequately controlled Airway Patency, RR, SpO2: stable & adequate BP & HR: stable & adequate Hydration State: stable & adequate Anesthetic Complications: no major complications apparent and Pt Satisfied with anesthetic care
--- NOTE | 2020-10-26 12:36 | Operative Report (OR) ---
DATE OF OPERATION: 10/26/2020 PREOPERATIVE DIAGNOSIS: Incisional hernia. POSTOPERATIVE DIAGNOSIS: Incisional hernia. OPERATIVE PROCEDURE: Open repair of incisional hernia with mesh. SURGEON: Sheyla Jewell MD. ANESTHESIA: General. ESTIMATED BLOOD LOSS: About 5 mL. FINDINGS: Incisional hernia size about 3 x 3 cm. COMPLICATIONS: None. INDICATIONS FOR THE PROCEDURE: This is an 80-year-old gentleman who presented with symptomatic incisional hernia on the abdominal wall. The patient is required to do the open repair of incisional hernia, possibly with mesh. I did talk to the patient about the benefit, the risk, alternate procedure. I indicated the risks may include but not limited to such as bleeding, infection, hernia recurrence, seroma, complication related to mesh, bowel obstruction, injury to the bowel, myocardial infarction, DVT, stroke and even . The patient understands. He signed informed consent and I answered all questions. DETAILS OF PROCEDURE: We brought the patient to the OR, put the patient in the supine position. The patient received SCD on bilateral legs to prevent DVT. Also, patient received 600 mg of clindamycin IV for prophylactic antibiotic. The patient received general anesthesia without difficulty. Before we brought the patient to the operating room, we already identified the patient and verified the procedure. After the patient received general anesthesia without difficulty, the abdomen was prepped and draped in routine sterile fashion after timeout. Then, we made an incision to remove the old scar on the upper abdomen in the midline, the incision length about 4 cm. Then we dissected the subcutaneous layer, reached the hernia sac. We mobilized the hernia sac, completely removed the hernia sac and then we mobilized the fascia and found the patient had an incisional hernia, hernia size about 3 x 3 cm. I decided to use a 6.4 cm round mesh to repair the hernia. I used #1 Ethibond, sutured the mesh to the fascial layer interruptedly 360 degrees. Then, we tied the suture one by one, the mesh seated nicely, no tension. Hemostasis was obtained. Then, I closed the subcutaneous layer by using 2-0 Vicryl continuous running, closed skin by using staple. Then, we put the dressing on. The patient tolerated the procedure well. All instrument, needle and sponge count were correct x2 at the end of the case. The patient was transferred to recovery room in stable condition. The specimen was sent to pathology. After the procedure, I did talk to the patient about the OR finding and the procedure we did. Also, I gave the patient postop care instruction. The patient understands. I attest to the content of the Intraoperative Record and any orders documented therein. Any exception s are noted below.
[2020-10-26] MEDS ORDERED: TAMSULOSIN HCL 0.4 MG CAP PO ONE (14:18)
[2020-10-26] MEDS ORDERED: FINASTERIDE 5 MG TAB PO ONE (15:30)
--- NOTE | 2020-10-26 19:48 | Hospitalist Consultation ---
Date of Consultation October 26, 2020 Assessment & Plan (1) S/P hernia repair: - Pain management, bowel regimen and DVT ppx per the primary surgical team, Dr. Jewell - PT/OT consults - Follow am CBC to monitor for acute blood loss - Encourage ambulation, monitor bowel function, diet as per primary team (2) Urinary retention: - Continue finasteride and tamsulosin - Monitor strict I's/O's - Continue NSS 15ml/hr per primary team - Avoid narcotic if possible to promote bowel function and encourage ambulation - Maintain serrano, consider urology consult for removal of serrano cath if unable to be removed prior to discharge due to urinary retention. (3) CKD (chronic kidney disease): - Stage II-III, baseline appears to be 1.7-1.9 - Follow am labs with urinary retention - Continue finasteride and tamsulosin (4) CAD (coronary artery disease): - 1 bare metal stent LAD in 2013 s/p [place] - Follows with cardiology as an outpt - Continue CLEMENTINA, statin, baby aspirin - not on BB due to hx of inability to tolerate due to bradycardia. (5) Hypertension: -Continue lisinopril 40 mg daily, hydralazine 50 mg TID per pt report - missed all antihypertensives today. Will order hydralazine 50 mg for now. - monitor overnight on tele for closer BP monitoring/control. (6) Hyperlipidemia: -Atorvastatin 40 mg daily (7) Raynauds syndrome: -History of such (8) Peripheral neuropathy: -Stable (9) Lung nodules: -Chronic, stable, solid nodules measuring up to 5 mm. Stable 5 mm groundglass nodule in the right upper lobe. No new suspicious nodules on CT dated 09/25/2020. -Follow-up with PCP (10) Hx of gout: -Continue uloric DVT ppx: - teds, ambulatory Thank you for involving us in the care of Mr. Aldridge. If you have any questions or concerns please do not hesitate to call. At this time medicine will follow along. Supervising Physician Co-Signing Physician Notes IM ATTENDING : Patient seen and examined. History obtained from patient and records. Preceding documentation by Ms. Tran Ceja, PAC reviewed. Final Assessment and Recommendations as follows : Incisional hernia status post repair Clinically well Hypertensive urgency secondary to missed medications Postop urinary retention, history BPH/LUTS as per records CAD status post stent Hyperlipidemia on statin Rx CRI, creatinine at baseline Chronic anemia, hemoglobin at baseline Past tobacco abuse Med telemetry postop monitoring given uncontrolled BP Facilitate hydralazine and lisinopril Continue Flomax and finasteride Urology consult in a.m. as per discussion with patient surgeon, Dr. Jewell RE urinary retention DVT prophylaxis. SCDs as per postop orders Recommend pharmacologic anticoagulation with Heparin subcu once bleeding risk is deemed to be minimal and negligible pending postop evaluation in a.m. Thank you very much for this consultation. Dr. Melton will follow patient's progress. Text document was generated using Portero voice recognition software. It may contain grammatical or spelling errors. Kindly contact undersigned for clarification of any documentation item in question. History of Present Illness Reason for Consultation: Urinary retention Requesting Physician: Dr. Jewell Attending Physician: Sheyla Jewell MD History of Present Illness This is an 80-year-old male who presented for open hernia repair with mesh by Dr. Jewell on 10/26/2020. Other past medical history includes Raynaud's syndrome, colonic diverticulitis, history of KS, peripheral neuropathy, CKD. Hospital medicine has been consulted for urinary retention. Pt reports that he has had some progressive inability to empty at home but has not yet seen a doctor regarding that. He denies uti history. No hematuria. Earlier today, he attempted to walk, drank plenty of fluids, and was still unable to void. A serrano catheter was placed. His largest complaint is sore throat and discomfort in penis after serrano was placed. Kyle other acute complaints. Allergies Allergy/AdvReac Type Severity Reaction Status Date / Time allopurinol Allergy Severe Facial/tongue Verified 10/26/20 08:16 swelling Sulfa (Sulfonamide Allergy Severe Mouth Verified 10/26/20 08:16 Antibiotics) swelling Penicillins Allergy Intermediate Hives Verified 10/26/20 08:16 ethacrynic acid Allergy Mild Rash Unverified 10/26/20 08:16 vancomycin Allergy Mild Rash Verified 10/26/20 08:16 indapamide Allergy Unknown Unknown Verified 10/26/20 08:16 trichlormethiazide AdvReac Severe "Intolerance" Verified 10/26/20 08:[address] De León amlodipine AdvReac Intermediate "Intolerance" Verified 10/26/20 08:[address] [facility] [address] De León Beta-Blockers AdvReac Mild Bradycardia Unverified 10/26/20 08:16 (Beta-Adrenergic Bloc valproic acid AdvReac Mild Diarrhea Verified 10/26/20 08:16 Cipro AdvReac Unknown SHAKEY Verified 10/20/16 22:15 DIZZY ciprofloxacin [Cipro] AdvReac Unknown Shakiness, Verified 10/26/20 08:16 dizziness Cantaloupe Allergy Intermediate Hives, rash Uncoded 10/26/20 08:16 Home Medications Medication Instructions Recorded Confirmed Type aspirin 81 mg PO QAM 10/21/20 10/26/20 History atorvastatin 40 mg PO QAM 10/21/20 10/26/20 History febuxostat [Uloric] 80 mg PO QAM 10/21/20 10/26/20 History finasteride 5 mg PO QAM 10/21/20 10/26/20 History hydralazine 50 mg PO TID 10/21/20 10/26/20 History lisinopril 40 mg PO QAM 10/21/20 10/26/20 History nitroglycerin 0.4 mg SUBLINGUAL UD PRN 10/21/20 10/26/20 History pantoprazole [Protonix] 40 mg PO QAM 10/21/20 10/26/20 History tamsulosin 0.4 mg PO QAM 10/21/20 10/26/20 History Vitamin D3 1,000 mg PO DAILY 10/26/20 10/26/20 History nitroglycerin 0.4 mg SUBLINGUAL UD PRN 10/26/20 10/26/20 History oxycodone-acetaminophen [Percocet] 1 tab PO Q6H PRN #30 tab 10/26/20 Rx Patient History Medical History (Updated 10/26/20 @ 19:45 by Camille Ceja PA-C) Acute myocardial infarction CAD (coronary artery disease) stent x1 to RCA (2013), follows with Dr. Willett Chronic kidney disease GERD (gastroesophageal reflux disease) Heart attack Hx of gout Hyperlipidemia Hypertension Lung nodules Myocardial Infarction 2013 > stent x1 Osteoarthritis Thyroid nodule Surgical History (Updated 10/26/20 @ 19:38 by Camille Ceja PA-C) History of cataract surgery R/L History of cholecystectomy History of colonoscopy History of esophagogastroduodenoscopy (EGD) History of heart artery stent 2014 > stent x1 History of herniorrhaphy x3 History of tonsillectomy and adenoidectomy History of tooth extraction Family History Other No family history of adverse response to anesthesia Social History Smoking Status: Never smoker Smoking End Date: QUIT OVER 50 YEARS; Second Hand Exposure: No; Do You Dip or Chew Tobacco: No; Tobacco Cessation Education Requested by Patient: No Hx Alcohol Use: Yes Hx Substance Use: No Preferred Language: Libyan [employer]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 Beliefs That Will Affect Care: None Current Living Situation: Spouse Other Information That Helps Us Care for You: No Feels Safe at Home: Yes Safety Concerns: Feels Safe At This Time Assistive Devices: Denture - Upper, Denture - Lower and Glasses Review of Systems Review of Systems: Constitutional: No fever, sweats or chills Eyes: No diplopia, no worsening or blurred vision ENT: normal hearing, no trouble swallowing, + sore throat Respiratory: No cough, sputum, dyspnea at rest or on exertion Cardiovascular: No chest pain, tightness or palpitations Abdomen: + soreness s/p surgery, no nausea, vomiting, diarrhea or constipation : pain in penis s/p serrano placement Musculoskeletal: No joint pain, calf pain, swelling Neurologic: No weakness, numbness/tingling, or balance problems Psychiatric: No anxiety or depression Skin: No rash or itch Physical Exam Physical Exam: General: awake, alert, no apparent distress Head: Normocephalic, atraumatic ENT: PERRL, EOMI, no pharyngeal exudate, mucous membranes moist Chest: Clear to auscultation, on room air, no adventitious breath sounds Cardiac: Regular rate and rhythm, no murmur, no JVD, normal peripheral pulses, good capillary refill Abdominal: Dressing over midline c/d/i, minor saturation with blood has been outlined by nursing. NABS x 4 quadrants, soft, + mildly distended, + tender to light palpation, no rebound or guarding. : Serrano cath in place, draining clear yellow urine Extremities: Normal inspection, no peripheral edema or erythema, calfs nontender to palpation Psych: Normal mood and affect Neuro: AAO x 3, strength intact bilaterally and rated 5/5, no motor deficits, speech is clear, no peripheral sensory deficits Results & Data Results & Data ([facility]) Vital Signs (Past 12 Hours) Vital Signs Temp Pulse Pulse Resp BP Pulse Ox 10/26/20 13:05 74 18 174/95 H 97 10/26/20 12:09 36.5 C 60 18 165/88 H 97 10/26/20 11:35 50 L 18 151/84 H 98 10/26/20 11:05 36.4 C L 63 16 113/96 94 10/26/20 10:50 36.3 C L 59 L 11 L 152/86 H 94 10/26/20 10:40 63 16 149/91 H 93 10/26/20 10:30 66 14 147/90 H 96 10/26/20 10:20 70 14 146/89 H 96 10/26/20 10:12 36.1 C L 77 10 L 157/100 H 97 10/26/20 08:22 36.5 C 71 18 179/95 H 98
[2020-10-26] MEDS ORDERED: ACETAMINOPHEN 325 MG TAB PO PRN ×2 (19:52→20:29)
[2020-10-26] MEDS ORDERED: CHLORASEPTIC 1.4% SOLN 180 ML BTL MT PRN (20:18)
[2020-10-26] MEDS ORDERED: PROMETHAZINE HCL 12.5 MG in SODIUM CHLORIDE 0.9% 50 ML IV PRN (20:30)
[2020-10-26] MEDS ORDERED: hydrALAZINE TAB 50 MG TAB PO ONE (20:30)
[2020-10-26] MEDS ORDERED: NITROGLYCERIN SL 0.4 MG/TAB TAB SL PRN (20:32)
[2020-10-26 21:12] LABS: Basophils # (auto) 0.01 K/uL (0-0.2); Basophils % (auto) 0.1 %; Eosinophils # (auto) 0.02 K/uL (0-0.5); Eosinophils % (auto) 0.3 %; Hematocrit (blood only) 36.3 % (42-52); Hemoglobin 12.3 g/dL (14.0-18.0); Immature Granulocytes # (auto) 0.02 K/uL (0.00-0.02); Immature Granulocytes % (auto) 0.3 %; Lymphocytes # (auto) 0.55 K/uL (1.2-3.4); Lymphocytes % (auto) 7.8 %; Mean Corpuscular Hemoglobin 30.4 pg (25-34); Mean Corpuscular Hgb Conc 33.9 g/dL (32-36); Mean Corpuscular Volume 89.9 fL (80-100); Mean Platelet Volume 9.6 fL (7.4-10.4); Monocytes % (auto) 7.1 %; Neutrophils # (auto) 5.99 K/uL (1.4-6.5); Neutrophils % (auto) 84.4 %; Platelet Count 126 K/uL (130-400); RDW Coefficient of Variation 13.6 % (11.5-14.5); RDW Standard Deviation 45.1 fL (36.4-46.3); Red Blood Count 4.04 M/uL (4.7-6.1); White Blood Count 7.09 K/uL (4.8-10.8)
[2020-10-26 21:31] LABS: Albumin Level 3.1 gm/dl (3.4-5.0); BUN Creatinine Ratio 11.9 (10-20); Calcium 8.4 mg/dl (8.5-10.1); Est GFR (African American) 44.1; Est GFR (Non-African American) 38.1; Magnesium 1.6 mg/dl (1.8-2.4); Potassium 4.1 mmol/L (3.5-5.1)
[2020-10-26 21:33] LABS: Albumin Globulin Ratio 1.1 (0.9-2); Bilirubin,Total 0.7 mg/dl (0.2-1); Globulin 2.7 gm/dl (2.5-4.0); Total Protein 5.8 gm/dl (6.4-8.2)
[2020-10-26] MEDS ORDERED: SODIUM CHLORIDE 0.9% 1000ML 1,000 ML IV ONE (21:52)
[2020-10-26] MEDS ORDERED: MAGNESIUM SULFATE / D5W 1 GM/100 ML BAG IV ONE (22:00)
[2020-10-27] MEDS ORDERED: CLINDAMYCIN 600 MG/54 ML BAG IV SCH (06:00)
--- NOTE | 2020-10-27 07:13 | Surgery Consultation ---
Date of Consultation October 27, 2020 Assessment & Plan (1) Urinary retention: pt is a 80 year-old male who is post- open repair incisional hernia with mesh, after pt developed urinary retention, pt had serrano catheter placed, pt is doing fine, Plan, will consult urologist for further treatment plan, continue treatment, OOB will F/U Present on Admission?: No Supervising Physician Co-Signing Physician Notes IM ATTENDING : Patient seen and examined. History obtained from patient and records. Preceding documentation by Ms. Tran Ceja, PAC reviewed. Final Assessment and Recommendations as follows : Incisional hernia status post repair Clinically well Hypertensive urgency secondary to missed medications Postop urinary retention, history BPH/LUTS as per records CAD status post stent Hyperlipidemia on statin Rx CRI, creatinine at baseline Chronic anemia, hemoglobin at baseline Past tobacco abuse Med telemetry postop monitoring given uncontrolled BP Facilitate hydralazine and lisinopril Continue Flomax and finasteride Urology consult in a.m. as per discussion with patient surgeon, Dr. Jewell RE urinary retention DVT prophylaxis. SCDs as per postop orders Recommend pharmacologic anticoagulation with Heparin subcu once bleeding risk is deemed to be minimal and negligible pending postop evaluation in a.m. Thank you very much for this consultation. Dr. Melton will follow patient's progress. Text document was generated using [employer] voice recognition software. It may contain grammatical or spelling errors. Kindly contact undersigned for clarification of any documentation item in question. History of Present Illness Attending Physician: Landry Vidal MD Post-op urinary retention History of Present Illness This is an 80-year-old male who presented for open hernia repair with mesh by me on 10/26/2020. Other past medical history includes Raynaud's syndrome, colonic diverticulitis, history of AL, peripheral neuropathy, CKD. Hospital medicine has been consulted for urinary retention. Pt reports that he has had some progressive inability to empty at home but has not yet seen a doctor regarding that. He denies uti history. No hematuria. Earlier today, he attempted to walk, drank plenty of fluids, and was still unable to void. A serrano catheter was placed. His largest complaint is sore throat and discomfort in penis after serrano was placed. Kyle other acute complaints. Allergies Allergy/AdvReac Type Severity Reaction Status Date / Time allopurinol Allergy Severe Facial/tongue Verified 10/26/20 08:16 swelling Sulfa (Sulfonamide Allergy Severe Mouth Verified 10/26/20 08:16 Antibiotics) swelling Penicillins Allergy Intermediate Hives Verified 10/26/20 08:16 ethacrynic acid Allergy Mild Rash Unverified 10/26/20 08:16 vancomycin Allergy Mild Rash Verified 10/26/20 08:16 indapamide Allergy Unknown Unknown Verified 10/26/20 08:16 trichlormethiazide AdvReac Severe "Intolerance" Verified 10/26/20 08:[address] De León amlodipine AdvReac Intermediate "Intolerance" Verified 10/26/20 08:[address] [address] De León Beta-Blockers AdvReac Mild Bradycardia Unverified 10/26/20 08:16 (Beta-Adrenergic Bloc valproic acid AdvReac Mild Diarrhea Verified 10/26/20 08:16 Cipro AdvReac Unknown SHAKEY Verified 10/20/16 22:15 DIZZY ciprofloxacin [Cipro] AdvReac Unknown Shakiness, Verified 10/26/20 08:16 dizziness Cantaloupe Allergy Intermediate Hives, rash Uncoded 10/26/20 08:16 Home Medications Medication Instructions Recorded Confirmed Type aspirin 81 mg PO QAM 10/21/20 10/26/20 History atorvastatin 40 mg PO QAM 10/21/20 10/26/20 History febuxostat [Uloric] 80 mg PO QAM 10/21/20 10/26/20 History finasteride 5 mg PO QAM 10/21/20 10/26/20 History hydralazine 50 mg PO TID 10/21/20 10/26/20 History lisinopril 40 mg PO QAM 10/21/20 10/26/20 History nitroglycerin 0.4 mg SUBLINGUAL UD PRN 10/21/20 10/26/20 History pantoprazole [Protonix] 40 mg PO QAM 10/21/20 10/26/20 History tamsulosin 0.4 mg PO QAM 10/21/20 10/26/20 History Vitamin D3 1,000 mg PO DAILY 10/26/20 10/26/20 History nitroglycerin 0.4 mg SUBLINGUAL UD PRN 10/26/20 10/26/20 History oxycodone-acetaminophen [Percocet] 1 tab PO Q6H PRN #30 tab 10/26/20 Rx Patient History Medical History (Updated 10/26/20 @ 19:45 by Camille Ceja PA-C) Acute myocardial infarction CAD (coronary artery disease) stent x1 to RCA (2013), follows with Dr. Willett Chronic kidney disease GERD (gastroesophageal reflux disease) Heart attack Hx of gout Hyperlipidemia Hypertension Lung nodules Myocardial Infarction 2013 > stent x1 Osteoarthritis Thyroid nodule Surgical History (Updated 10/26/20 @ 19:38 by Camille Ceja PA-C) History of cataract surgery R/L History of cholecystectomy History of colonoscopy History of esophagogastroduodenoscopy (EGD) History of heart artery stent 2013 > stent x1 History of herniorrhaphy x3 History of tonsillectomy and adenoidectomy History of tooth extraction Family History Other No family history of adverse response to anesthesia Social History Smoking Status: Never smoker Smoking End Date: QUIT OVER 50 YEARS; Second Hand Exposure: No; Do You Dip or Chew Tobacco: No; Tobacco Cessation Education Requested by Patient: No Hx Alcohol Use: Yes Hx Substance Use: No Preferred Language: Greenlandic Financial Institution Treasurer Required: No Beliefs That Will Affect Care: None Current Living Situation: Spouse Other Information That Helps Us Care for You: No Feels Safe at Home: Yes Safety Concerns: Feels Safe At This Time Assistive Devices: Denture - Upper, Denture - Lower and Glasses Review of Systems Review of Systems: Constitutional: No fever, sweats or chills Eyes: No diplopia, no worsening or blurred vision ENT: normal hearing, no trouble swallowing, + sore throat Respiratory: No cough, sputum, dyspnea at rest or on exertion Cardiovascular: No chest pain, tightness or palpitations Abdomen: + soreness s/p surgery, no nausea, vomiting, diarrhea or constipation : pain in penis s/p serrano placement Musculoskeletal: No joint pain, calf pain, swelling Neurologic: No weakness, numbness/tingling, or balance problems Psychiatric: No anxiety or depression Skin: No rash or itch Allergies Allergy/AdvReac Type Severity Reaction Status Date / Time allopurinol Allergy Severe Facial/tongue Verified 10/26/20 08:16 swelling Sulfa (Sulfonamide Allergy Severe Mouth Verified 10/26/20 08:16 Antibiotics) swelling Penicillins Allergy Intermediate Hives Verified 10/26/20 08:16 ethacrynic acid Allergy Mild Rash Unverified 10/26/20 08:16 vancomycin Allergy Mild Rash Verified 10/26/20 08:16 indapamide Allergy Unknown Unknown Verified 10/26/20 08:16 trichlormethiazide AdvReac Severe "Intolerance" Verified 10/26/20 08:[address] De León amlodipine AdvReac Intermediate "Intolerance" Verified 10/26/20 08:[address] [facility] [address] De León Beta-Blockers AdvReac Mild Bradycardia Unverified 10/26/20 08:16 (Beta-Adrenergic Bloc valproic acid AdvReac Mild Diarrhea Verified 10/26/20 08:16 Cipro AdvReac Unknown SHAKEY Verified 10/20/16 22:15 DIZZY ciprofloxacin [Cipro] AdvReac Unknown Shakiness, Verified 10/26/20 08:16 dizziness Cantaloupe Allergy Intermediate Hives, rash Uncoded 10/26/20 08:16 Home Medications Medication Instructions Recorded Confirmed Type aspirin 81 mg PO QAM 10/21/20 10/26/20 History atorvastatin 40 mg PO QAM 10/21/20 10/26/20 History febuxostat [Uloric] 80 mg PO QAM 10/21/20 10/26/20 History finasteride 5 mg PO QAM 10/21/20 10/26/20 History hydralazine 50 mg PO TID 10/21/20 10/26/20 History lisinopril 40 mg PO QAM 10/21/20 10/26/20 History nitroglycerin 0.4 mg SUBLINGUAL UD PRN 10/21/20 10/26/20 History pantoprazole [Protonix] 40 mg PO QAM 10/21/20 10/26/20 History tamsulosin 0.4 mg PO QAM 10/21/20 10/26/20 History Vitamin D3 1,000 mg PO DAILY 10/26/20 10/26/20 History nitroglycerin 0.4 mg SUBLINGUAL UD PRN 10/26/20 10/26/20 History oxycodone-acetaminophen [Percocet] 1 tab PO Q6H PRN #30 tab 10/26/20 Rx Patient History Medical History (Updated 10/26/20 @ 19:45 by Camille Ceja PA-C) Acute myocardial infarction CAD (coronary artery disease) stent x1 to RCA (2013), follows with Dr. Willett Chronic kidney disease GERD (gastroesophageal reflux disease) Heart attack Hx of gout Hyperlipidemia Hypertension Lung nodules Myocardial Infarction 2013 > stent x1 Osteoarthritis Thyroid nodule Surgical History (Updated 10/26/20 @ 19:38 by Camille Ceja PA-C) History of cataract surgery R/L History of cholecystectomy History of colonoscopy History of esophagogastroduodenoscopy (EGD) History of heart artery stent 2013 > stent x1 History of herniorrhaphy x3 History of tonsillectomy and adenoidectomy History of tooth extraction Family History Other No family history of adverse response to anesthesia Social History Smoking Status: Never smoker Smoking End Date: QUIT OVER 50 YEARS; Second Hand Exposure: No; Do You Dip or Chew Tobacco: No; Tobacco Cessation Education Requested by Patient: No Hx Alcohol Use: Yes Hx Substance Use: No Preferred Language: Greenlandic Financial Institution Treasurer Required: No Beliefs That Will Affect Care: None Current Living Situation: Spouse Other Information That Helps Us Care for You: No Feels Safe at Home: Yes Safety Concerns: Feels Safe At This Time Assistive Devices: Denture - Upper, Denture - Lower and Glasses Physical Exam Constitutional: WD/WN, vitals as above well developed and well nourished Eyes: PERRL, conjunctivae normal, anicteric sclerae ENMT: external ear and nose normal, oropharynx normal Neck: trachea midline, no thyromegaly Respiratory: normal respiratory effort, lungs clear to auscultation normal respiratory effort Cardiovascular: RRR, no murmur, no edema Gastrointestinal (Abdomen): normal bowel sounds, soft, nontender, no hepatosplenomegaly incision intact, no redness, mild tenderness at incision site, no distend, BS + Musculoskeletal: no cyanosis or clubbing, extremities motor strength 5/5 Skin: no rashes, warm and dry Neurologic: awake Psychiatric: Orientation: alert and oriented x 3 Results & Data ([facility]) Vital Signs (Past 12 Hours) Vital Signs Temp Pulse Pulse Pulse Resp BP BP 10/27/20 03:30 36.7 C 71 18 157/83 H 10/26/20 23:59 54 L 10/26/20 22:42 36.8 C 65 18 145/71 H 10/26/20 20:45 36.6 C 55 L 16 146/79 H 10/26/20 20:12 36.9 C 54 L 18 161/80 H 10/26/20 19:34 60 18 177/97 H Pulse Ox 10/27/20 03:30 94 10/26/20 23:59 10/26/20 22:42 94 10/26/20 20:45 94 10/26/20 20:12 95 10/26/20 19:34 96 Laboratory Results Abnormal lab results 10/26/20 10/26/20 Range/Units 21:02 21:02 RBC 4.04 L (4.7-6.1) M/uL Hgb 12.3 L (14.0-18.0) g/dL Hct 36.3 L (42-52) % Plt Count 126 L (130-400) K/uL Lymph # (Auto) 0.55 L (1.2-3.4) K/uL Sodium 132 L (136-145) mmol/L BUN 20 H (7-18) mg/dl Creatinine 1.67 H (0.6-1.4) mg/dl Glucose 101 H (70-99) mg/dl Calcium 8.4 L (8.5-10.1) mg/dl Magnesium 1.6 L (1.8-2.4) mg/dl AST 13 L (15-37) U/L Total Protein 5.8 L (6.4-8.2) gm/dl Albumin 3.1 L (3.4-5.0) gm/dl
--- NOTE | 2020-10-27 08:32 | Urology Consultation ---
Date of Consultation October 27, 2020 Assessment & Plan (1) Urinary retention: (2) S/P hernia repair: 80 year-old male patient, with multiple comorbidities, admitted status post incisional hernia repair, subsequently developing postoperative acute urinary retention. -Urinary retention likely multifactorial including BPH and recent anesthesia. -Discussed potential etiologies with patient and recommended treatment options. -Patient afebrile. -Labs reviewed - creatinine elevated with repeat pending. -Continue dual therapy with Finasteride and Tamsulosin. -Recommend maintaining serrano catheter for 7-10 days to allow decompression and bladder rest. -Outpatient follow-up with urology service arranged, voiding trial at that time. -Expected clinical course reviewed with patient, all questions answered. Thank you for allowing us to participate in the acute care of . Please r econsult us with additional questions, concerns or changes in patient status. History of Present Illness Reason for Consultation: Urinary retention Attending Physician: Landry Vidal MD History of Present Illness 80 year-old male patient, with past medical history significant for hyperlipidemia, lung nodules, hypertension, CAD, DC, CKD, peripheral neuropathy and Raynauds syndrome, admitted status post elective open repair of incisional hernia with mesh. Post procedure, patient was unable to urinate. He was bladder scanned for 409 ml. Serrano catheter was inserted at that time without difficulty. Urology consulted for acute urinary retention. Patient reports he has not followed with urologist in the past. Chart review: Afebrile Wbc 6.48 Hgb 13.5 Creatinine pending (yesterday was 1.67). Patient examined at bedside. Sitting up at the side of the bed. Awake, alert and comfortable. Currently reports discomfort in abdomen and lower back, states pain is tolerable. Serrano catheter intact, draining clear yellow urine. He is tolerating catheter without issues. Does note he has a history of hernia repair several years ago in which he required serrano catheter at that time as well. Home medications for urinary pattern include Finasteride and Tamsulosin. Baseline urination includes no significant urinary frequency/urgency. Denies hematuria or dysuria. Prior to procedure, he reports he emptied his bladder well. Typically has one episode of nocturia per night. Denies bladder pain or pressure. Denies fevers or chills. Denies nausea or vomiting. He is unsure when his last PSA is, PCP will have records. Patient concerned that he will have to maintain catheter group home. Denies additional urologic concerns today. Allergies Allergy/AdvReac Type Severity Reaction Status Date / Time allopurinol Allergy Severe Facial/tongue Verified 10/26/20 08:16 swelling Sulfa (Sulfonamide Allergy Severe Mouth Verified 10/26/20 08:16 Antibiotics) swelling Penicillins Allergy Intermediate Hives Verified 10/26/20 08:16 ethacrynic acid Allergy Mild Rash Unverified 10/26/20 08:16 vancomycin Allergy Mild Rash Verified 10/26/20 08:16 indapamide Allergy Unknown Unknown Verified 10/26/20 08:16 trichlormethiazide AdvReac Severe "Intolerance" Verified 10/26/20 08:[address] De León amlodipine AdvReac Intermediate "Intolerance" Verified 10/26/20 08:[address] [address] De León Beta-Blockers AdvReac Mild Bradycardia Unverified 10/26/20 08:16 (Beta-Adrenergic Bloc valproic acid AdvReac Mild Diarrhea Verified 10/26/20 08:16 Cipro AdvReac Unknown SHAKEY Verified 10/20/16 22:15 DIZZY ciprofloxacin [Cipro] AdvReac Unknown Shakiness, Verified 10/26/20 08:16 dizziness Cantaloupe Allergy Intermediate Hives, rash Uncoded 10/26/20 08:16 Home Medications Medication Instructions Recorded Confirmed Type aspirin 81 mg PO QAM 10/21/20 10/26/20 History atorvastatin 40 mg PO QAM 10/21/20 10/26/20 History febuxostat [Uloric] 80 mg PO QAM 10/21/20 10/26/20 History finasteride 5 mg PO QAM 10/21/20 10/26/20 History hydralazine 50 mg PO TID 10/21/20 10/26/20 History lisinopril 40 mg PO QAM 10/21/20 10/26/20 History nitroglycerin 0.4 mg SUBLINGUAL UD PRN 10/21/20 10/26/20 History pantoprazole [Protonix] 40 mg PO QAM 10/21/20 10/26/20 History tamsulosin 0.4 mg PO QAM 10/21/20 10/26/20 History Vitamin D3 1,000 mg PO DAILY 10/26/20 10/26/20 History nitroglycerin 0.4 mg SUBLINGUAL UD PRN 10/26/20 10/26/20 History oxycodone-acetaminophen [Percocet] 1 tab PO Q6H PRN #30 tab 10/26/20 Rx Patient History Medical History Acute myocardial infarction CAD (coronary artery disease) stent x1 to RCA (2013), follows with Dr. Willett Chronic kidney disease GERD (gastroesophageal reflux disease) Heart attack Hx of gout Hyperlipidemia Hypertension Lung nodules Myocardial Infarction 2013 > stent x1 Osteoarthritis Thyroid nodule Surgical History History of cataract surgery R/L History of cholecystectomy History of colonoscopy History of esophagogastroduodenoscopy (EGD) History of heart artery stent 2013 > stent x1 History of herniorrhaphy x3 History of tonsillectomy and adenoidectomy History of tooth extraction Family History Other No family history of adverse response to anesthesia Social History Smoking Status: Never smoker Second Hand Exposure: No; Hx Alcohol Use: Yes Hx Substance Use: No Preferred Language: Hungarian Health Assistant Required: No Beliefs That Will Affect Care: None Current Living Situation: Spouse Feels Safe at Home: Yes Assistive Devices: Denture - Upper, Denture - Lower and Glasses Review of Systems Constitutional: as per Subjective / HPI; no fever and no chills Eyes: no problem reported Ear, Nose, Mouth, Throat: no dizziness Respiratory: no cough and no dyspnea Cardiovascular: no chest pain and no edema Gastrointestinal: as per Subjective / HPI Genitourinary: + as per Subjective / HPI Musculoskeletal: as per Subjective / HPI Neurologic: no dizziness Endocrine: no fatigue Hematologic / Lymphatic: no easy bleeding and no easy bruising Physical Exam Constitutional: well developed and well nourished; no acute distress and not ill appearing ENMT: Ears: no external ear abnormality Nose: no external nose abnormality Neck: normal visual inspection and trachea midline Respiratory: normal respiratory effort and able to speak in complete sentences; no respiratory distress and no audible wheezes Cardiovascular: Extremities: no calf tenderness and no edema Gastrointestinal (Abdomen): Inspection/Auscultation: abdomen normal to inspection; abdomen not distended Percussion/Palpation: + abdomen tender (Mildly tender to light palpation) and abdomen soft; no guarding Musculoskeletal: Moves all extremities without difficulty. Skin: No visible rashes, lesions, or wounds noted. Neurologic: moves all extremities and awake Psychiatric: Orientation: alert, oriented x 3 and cooperative Affect: euthymic affect Genitourinary: Serrano catheter intact draining clear yellow urine. Results & Data ([facility]) Vital Signs (Past 12 Hours) Vital Signs Temp Pulse Pulse Resp BP BP Pulse Ox 10/27/20 07:41 36.6 C 63 18 167/89 H 95 10/27/20 03:30 36.7 C 71 18 157/83 H 94 10/26/20 23:59 54 L 10/26/20 22:42 36.8 C 65 18 145/71 H 94 10/26/20 20:45 36.6 C 55 L 16 146/79 H 94 PG Care Time/CCT Total # of Minutes Spent Total Time Spent with Patient: Total time spent is greater than 50% in coordination of care (as documented) at patient's floor/unit and/or counseling patient: Coding Level of Care Code 78816 Initial Inpt Care Lvl 2 Diagnoses Urinary retention R33.9 S/P hernia repair Z98.890; Z87.19
[2020-10-27] MEDS ORDERED: ATORVASTATIN 40 MG TAB PO SCH (09:00)
[2020-10-27] MEDS ORDERED: FINASTERIDE 5 MG TAB PO SCH (09:00)
[2020-10-27] MEDS ORDERED: TAMSULOSIN HCL 0.4 MG CAP PO SCH (09:00)
[2020-10-27] MEDS ORDERED: lisinopril 40 MG TAB PO SCH (09:00)
[2020-10-27] MEDS ORDERED: FEBUXOSTAT 40 MG TABLET PO SCH (09:00)
[2020-10-27] MEDS ORDERED: PANTOprazole 40 MG TAB PO SCH (09:00)
[2020-10-27] MEDS ORDERED: ASPIRIN 81 MG ECTAB PO SCH (09:00)
[2020-10-27] MEDS ORDERED: hydrALAZINE TAB 50 MG TAB PO SCH ×2 (09:00)
[2020-10-27 10:00] LABS: Basophils # (auto) 0.01 K/uL (0-0.2); Basophils % (auto) 0.2 %; Eosinophils # (auto) 0.05 K/uL (0-0.5); Eosinophils % (auto) 0.8 %; Hematocrit (blood only) 38.7 % (42-52); Hemoglobin 13.5 g/dL (14.0-18.0); Immature Granulocytes # (auto) 0.01 K/uL (0.00-0.02); Immature Granulocytes % (auto) 0.2 %; Lymphocytes # (auto) 0.78 K/uL (1.2-3.4); Mean Corpuscular Hgb Conc 34.9 g/dL (32-36); Mean Corpuscular Volume 88.8 fL (80-100); Mean Platelet Volume 9.9 fL (7.4-10.4); Monocytes % (auto) 9.3 %; Neutrophils # (auto) 5.03 K/uL (1.4-6.5); Neutrophils % (auto) 77.5 %; Platelet Count 146 K/uL (130-400); RDW Coefficient of Variation 13.6 % (11.5-14.5); RDW Standard Deviation 44.7 fL (36.4-46.3); Red Blood Count 4.36 M/uL (4.7-6.1); White Blood Count 6.48 K/uL (4.8-10.8)
--- NOTE | 2020-10-27 10:26 | Discharge Summary ---
Date of Service October 27, 2020 Admission HPI Per Admitting Provider Patient presented to [facility] for outpatient elective open hernia repair with possible mesh by Dr. Kirkpatrick. Patient was taken to operating room for open hernia repair and tolerated procedure well. Developed urinary retention postop and was admitted for observation and Serrano catheter was placed. Principal Diagnosis Incisional hernia Discharge Exam Constitutional well developed and well nourished; no acute distress and not ill appearing Respiratory normal respiratory effort; no respiratory distress and no labored breathing Gastrointestinal (Abdomen) Inspection/Auscultation: abdomen normal to inspection, normal bowel sounds and + abdominal surgical incision (covered with dressing); abdomen not distended Percussion/Palpation: + abdomen tender (at incision site, appropriate postop) and abdomen soft; no guarding and abdomen not rigid Skin no rashes, warm and dry + incision (not inspected, dressing dry) Psychiatric A+Ox3, euthymic affect Discharge Data Allergies Allergy/AdvReac Type Severity Reaction Status Date / Time allopurinol Allergy Severe Facial/tongue Verified 10/26/20 08:16 swelling Sulfa (Sulfonamide Allergy Severe Mouth Verified 10/26/20 08:16 Antibiotics) swelling Penicillins Allergy Intermediate Hives Verified 10/26/20 08:16 ethacrynic acid Allergy Mild Rash Unverified 10/26/20 08:16 vancomycin Allergy Mild Rash Verified 10/26/20 08:16 indapamide Allergy Unknown Unknown Verified 10/26/20 08:16 trichlormethiazide AdvReac Severe "Intolerance" Verified 10/26/20 08:[address] De León amlodipine AdvReac Intermediate "Intolerance" Verified 10/26/20 08:[address] [facility] [address] De León Beta-Blockers AdvReac Mild Bradycardia Unverified 10/26/20 08:16 (Beta-Adrenergic Bloc valproic acid AdvReac Mild Diarrhea Verified 10/26/20 08:16 Cipro AdvReac Unknown SHAKEY Verified 10/20/16 22:15 DIZZY ciprofloxacin [Cipro] AdvReac Unknown Shakiness, Verified 10/26/20 08:16 dizziness Cantaloupe Allergy Intermediate Hives, rash Uncoded 10/26/20 08:16 Consultations 10/26/20 19:12 Consult Hospitalist Stat 10/26/20 20:29 Consult Urology Routine 10/27/20 07:19 Consult Urology Routine Procedures Performed Operation Date: 10/26/20 09:45 Actual Procedures p Open Repair Ventral Hernia Possible Mesh(Not Applicable) - Sheyla Kirkpatrick MD Hospital Course (1) Incisional hernia: Patient was taken to operating room for open incisional hernia repair with possible mesh by Dr. kirkpatrick. Patient found to have hernia about 3 x3 cm and a mesh was used. Patient tolerated procedure well and was transferred to recovery. Patient developed urinary retention postop and was admitted to hospital for observation and serrano catheter placement. Urology was consulted for further recommendations. POD # 1 , afebrile, vitals stable. Hypertensive but did not receive his home medications. Slight headache. Tolerated diet. Pain controlled with Tylenol. No bowel movement yet today. Serrano with clear yellow urine. Patient doing well. Discharged home once urology evaluated. (2) Urinary retention: Patient developed urinary retention postoperatively and was admitted for observation. urology consulted and recommended keeping Serrano catheter for 1 week with follow up in office for void trial and possible cystoscopy if needed. Total Time Total Time Spent Total Time Spent (In Minutes): 30 Total Time Includes: Examination of the Patient, Discharge Planning and Medication Reconciliation Discharge Plan Discharge Items Patient Disposition: Home - Self-Care Reason For Visit: Incisional Hernia, without Obstruction or Gangrene Discharge Diagnosis: S/P Open repair incisional hernia with mesh Urinary Retention Condition on Discharge: Good Activity: As commented below Lifting: No more than 25 pounds Lifting Comment: for 4 weeks Bathing: May shower/bathe in 3 days Sexual Activity: After two weeks Exercise/Sports: Rest today Non-emergency contact: Primary Care Provider and Surgeon Call non-emergency contact if: you have any medication questions, your symptoms worsen, your pain is not controlled, your pain is worsening, your pain is u nusual for you and your pain is concerning for you Follow-up/Referrals: Erin Marie PA-C [Physician Rubble Placer] - 11/04/20 11:00 am Jeremiah Van DO [Primary Care Provider] - (follow up Dr. Kirkpatrick 2 weeks, Agree-I have documented within the medical record. Agree-I have documented within the medical record.) Sheyla Kirkpatrick MD [Physician] - Diet: Regular Addtl Attending Provider Instructions: General Surgery Discharge instructions: - No heavy lifting over 25 pounds for 4-6 weeks - No strenuous activity until cleared by surgeon - No submerging incision underwater for 2 weeks (no bathing, swimming, hot tubs) - No driving while taking narcotic pain medication or until pain free - You may shower in 3 days, remove outer dressing. Allow soap and water to run over incision and pat dry - Surgical deborah will be removed in office - May take extra strength Tylenol and Ibuprofen as needed for pain -650 mg of Tylenol every 6 hours as needed - 600 mg of Ibuprofen every 6 hours as needed (take with food) - Percocet every 6 hours as needed for severe pain -Wear abdominal binder for support during day - Follow-up with Dr. Kirkpatrick as scheduled, please call office at [phone] if you have any questions or concerns. Addtl Sole Leveler Machine Provider Instructions: For urinary retention: - you will go home with Serrano catheter - Follow-up with urology in one week for catheter removal Pending Studies at Discharge: Yes Studies:: hernia sac pathology report Stand-Alone Forms: Anesthesia/Sedation, Adult, [facility] Medications and DC Order Prescriptions: New oxycodone-acetaminophen [Percocet] 5-325 mg tablet 1 tab PO Q6H PRN (Reason: pain) Qty: 30 RF: 0 Continued atorvastatin 40 mg Tablet 40 mg PO QAM RF: 0 aspirin 81 mg Tablet,Delayed Release (Dr/Ec) 81 mg PO QAM RF: 0 tamsulosin 0.4 mg Capsule 0.4 mg PO QAM RF: 0 pantoprazole [Protonix] 40 mg Tablet,Delayed Release (Dr/Ec) 40 mg PO QAM RF: 0 nitroglycerin 0.4 mg Tablet, Sublingual 0.4 mg sublingual UD PRN (Reason: Chest Pain) RF: 0 hydralazine 50 mg Tablet 50 mg PO TID RF: 0 lisinopril 40 mg Tablet 40 mg PO QAM RF: 0 finasteride 5 mg Tablet 5 mg PO QAM RF: 0 febuxostat [Uloric] 80 mg Tablet 80 mg PO QAM RF: 0 Vitamin D3 1,000 mg 1,000 mg PO DAILY RF: 0 nitroglycerin 0.4 mg 0.4 mg sublingual UD PRN (Reason: Chest Pain) RF: 0 Discharge Orders: Discharge Order (Routine); Ordered 10/27/20 Ordered By: Darlene Franco/Other Patient Handouts: DVT Post Op Prevention Admission Data Admit Date/Time: 10/26/20 19:28 Attending Provider: Landry Vidal Admit Provider: Sheyla Kirkpatrick Primary Care Provider: Jeremiah Van Other Providers: Karlo Irizarry ; Grzegorz Jones ; Jeremi Antunez ; Sandra Ramirez ; Naga Jonas ; Norma Ramirez Melissa A. ; Erin Marie ; Frank Wolfe ; Dian Cook ; Paloma Singh ; Armond Melton
[2020-10-27 10:36] LABS: BUN Creatinine Ratio 10.1 (10-20); Calcium 8.5 mg/dl (8.5-10.1); Creatinine Clr Calc Pharmacy 33.2 ml/min; Est GFR (African American) 44.4; Est GFR (Non-African American) 38.3; Magnesium 2.1 mg/dl (1.8-2.4); Potassium 3.9 mmol/L (3.5-5.1)
[2020-10-28] MEDS ORDERED: ASPIRIN 81 MG ECTAB PO SCH (09:00)
== END 2020-10-27 12:41 | disposition home health service (06) ==
LOC: ASU 07:52 → 3N 07:52 → 2W 20:44

== ENCOUNTER 2023-09-05 08:41 | Observation (INO) ==
--- NOTE | 2023-08-02 11:42 | PAT Medication Instructions ---
Medication Instructions Date of Service August 02, 2023 Home Medications Medication Instructions Recorded oxycodone 5 mg tablet 5 mg PO Q6H PRN pain #10 tabs 02/06/23 aspirin 81 mg tablet,delayed release 81 mg PO 3XWK atorvastatin 40 mg tablet 40 mg PO QAM febuxostat 80 mg tablet (Uloric) 80 mg PO QAM finasteride 5 mg tablet 5 mg PO QAM hydralazine 50 mg tablet 50 mg PO TID lisinopril 40 mg tablet 40 mg PO QAM nitroglycerin 0.4 mg sublingual tablet 0.4 mg sublingual UD PRN pantoprazole 40 mg tablet,delayed release (Protonix) 40 mg PO QAM tamsulosin 0.4 mg capsule 0.4 mg PO QAM albuterol sulfate 90 mcg/actuation aerosol inhaler 2 puff inhalation Q6H PRN diclofenac sodium 1 % topical gel 4 g topical BID PRN oxycodone 5 mg tablet 5 mg PO Q6H PRN cyanocobalamin (vitamin B-12) 1,000 mcg tablet (Vitamin B-12) 1,000 mcg PO QAM Continue as directed nitroglycerin 0.4 mg sublingual tablet 0.4 mg sublingual UD PRN(if needed) ASK your prescriber and surgeon aspirin 81 mg tablet,delayed release 81 mg PO 3XWK STOP taking 24 hours before surgery diclofenac sodium 1 % topical gel 4 g topical BID PRN DO NOT take the morning of surgery febuxostat 80 mg tablet (Uloric) 80 mg PO QAM lisinopril 40 mg tablet 40 mg PO QAM cyanocobalamin (vitamin B-12) 1,000 mcg tablet (Vitamin B-12) 1,000 mcg PO QAM Take morning of surgery With a small sip of water, OTHERWISE NOTHING TO EAT OR DRINK AFTER MIDNIGHT: atorvastatin 40 mg tablet 40 mg PO QAM finasteride 5 mg tablet 5 mg PO QAM hydralazine 50 mg tablet 50 mg PO TID pantoprazole 40 mg tablet,delayed release (Protonix) 40 mg PO QAM tamsulosin 0.4 mg capsule 0.4 mg PO QAM albuterol sulfate 90 mcg/actuation aerosol inhaler 2 puff inhalation Q6H PRN(use if needed; please bring with you to hospital day of surgery if possible) oxycodone 5 mg tablet 5 mg PO Q6H PRN(if needed) Take evening before surgery hydralazine 50 mg tablet 50 mg PO TID albuterol sulfate 90 mcg/actuation aerosol inhaler 2 puff inhalation Q6H PRN(if needed) oxycodone 5 mg tablet 5 mg PO Q6H PRN(if needed) Other Notes If you have any questions please call us at [phone] or [phone] or [phone] or [phone]
--- NOTE | 2023-08-10 12:10 | Anesthesiology Consultation ---
Date of Service August 10, 2023 Assessment & Plan (1) Encounter for pre-operative examination: Plan - potential difficult intubation: Mallampati Score 3, small oral opening. - h/o post-op urinary retention requiring post-op catheterization x 9 days. Patient's daughter Rubi requests that Rashmi with surgeon's office contact her to further discuss h/o urinary retention and post-op care. Message sent to surgeon's office. - ER [facility] 08/04/23: "...left elbow swelling he reports he was recently leaning on his elbow while he was making holiday candy with his family, and noticed his elbow began to swell. He denies any pain, warmth, fever, or other signs of infection...there is no erythema, warmth, or signs of infection. I believe the patient has an olecranon bursitis. Since the elbow does not look infectious, I will defer draining and use compression for treatment. A Marie splint was placed for compression, the patient is currently already scheduled to follow-up with orthopedics on Monday. He was provided an arm sling for immobilization..." Patient and daughter state that surgeon is aware. - cardiology office visit 05/31/23 [facility]: "...follow-up of coronary artery d isease...2013 when he had a bare metal stent placed in his LAD...has done very well...denies activity related chest pain...no shortness of breath or orthopnea...stable CAD...follow-up on an annual or as-needed basis..." - Outpatient joint assessment: Patient is currently scheduled for inpatient pathway. If re-evaluated and patient/surgeon requests outpatient pathway, patient is not recommended candidate for outpatient joint program from anesthesia standpoint. - Total time in room with patient and daughter 35 minutes. They verbalized understanding and agreement with plan, denied questions or concerns. They indicated questions/concerns were adequately addressed with exception to questions that are to the surgeon's office determination such as post-op care/post-op pain medications. Chart Review Chart Review: Acceptable Risk for Surgery and Patient seen in Pre Admission Testing Teaching & Discussion Pre-Anesthesia Teaching/Discussion Notes: Instructed NPO after midnight before surgery, except medications with 15 cc of water. Medication instructions provided according to the PAT guidelines. History Surgery Operation Date: 09/05/23 13:55 Proposed Procedures p Left Reverse Total Shoulder Arthroplasty - Saji Tobar, Height/Weight Height: 5 ft 7 in Weight: 78.8 kg Allergies Allergy/AdvReac Type Severity Reaction Status Date / Time allopurinol Allergy Severe Facial/tongue Verified 08/02/23 10:55 swelling Sulfa (Sulfonamide Allergy Severe EDEMA Verified 08/02/23 10:55 Antibiotics) FACE/LIPS/TONGUE amoxicillin Allergy Intermediate Hives Verified 08/02/23 10:55 Calcium Channel Blocking Allergy Intermediate Hives Verified 08/02/23 10:55 Agents-Dih ethacrynic acid Allergy Intermediate Rash Verified 08/02/23 10:55 Penicillins Allergy Intermediate Hives Verified 08/02/23 10:55 shellfish derived Allergy Intermediate hands got Verified 08/02/23 10:55 itchy vancomycin Allergy Intermediate Rash Verified 08/02/23 10:55 indapamide Allergy Unknown CAN'T Verified 08/02/23 10:55 REMEMBER, ON [facility] MED LIST trichlormethiazide AdvReac Severe "Intolerance" Verified 08/02/23 10:[address] De León amlodipine AdvReac Intermediate "Intolerance" Verified 08/02/23 10:[address] [facility] [address] De León Beta-Blockers AdvReac Intermediate Bradycardia Verified 08/02/23 10:55 (Beta-Adrenergic Bloc ciprofloxacin [Cipro] AdvReac Intermediate RASH/SHAKIN Verified 08/02/23 10:55 G/DIZZINESS divalproex sodium AdvReac Intermediate Diarrhea Verified 08/02/23 10:55 [From Depakote] valproic acid AdvReac Intermediate Diarrhea Verified 08/02/23 10:55 Cantaloupe Allergy Intermediate Hives, rash Uncoded 08/02/23 10:55 Medications Home Medications Medication Instructions Recorded Confirmed Last Taken aspirin 81 mg tablet,delayed 81 mg PO 3XWK 10/21/20 08/02/23 02/06/23 release atorvastatin 40 mg tablet 40 mg PO QAM 10/21/20 08/02/23 02/06/23 febuxostat 80 mg tablet (Uloric) 80 mg PO QAM 10/21/20 08/02/23 02/06/23 finasteride 5 mg tablet 5 mg PO QAM 10/21/20 08/02/23 02/06/23 hydralazine 50 mg tablet 50 mg PO TID 10/21/20 08/02/23 02/06/23 lisinopril 40 mg tablet 40 mg PO QAM 10/21/20 08/02/23 02/06/23 nitroglycerin 0.4 mg sublingual 0.4 mg sublingual UD PRN Chest Pain 10/21/20 08/02/23 Unknown tablet pantoprazole 40 mg tablet,delayed 40 mg PO QAM 10/21/20 08/02/23 02/06/23 release (Protonix) tamsulosin 0.4 mg capsule 0.4 mg PO QAM 10/21/20 08/02/23 02/06/23 albuterol sulfate 90 mcg/actuation 2 puff inhalation Q6H PRN 02/06/23 08/02/23 Unknown aerosol inhaler CONGESTION/COUGH/WHEEZING diclofenac sodium 1 % topical gel 4 g topical BID PRN Pain 02/06/23 08/02/23 Unknown oxycodone 5 mg tablet 5 mg PO Q6H PRN pain #10 tabs 02/06/23 08/02/23 Unknown cyanocobalamin (vitamin B-12) 1,000 mcg PO QAM 08/02/23 08/02/23 Unknown 1,000 mcg tablet (Vitamin B-12) fluticasone propionate 50 1 spray intranasal BID 08/10/23 08/10/23 Unknown mcg/actuation nasal spray,suspension (Allergy Relief (fluticasone)) ketoconazole 2 % shampoo ea topical 08/10/23 Unknown Past Medical History Medical History (Updated 08/11/23 @ 09:15 by Monica Strange PA-C) BPH (benign prostatic hyperplasia) Potential difficult intubation on pre-intubation airway assessment Mallampati Score 3, small oral opening CKD (chronic kidney disease) stage 3, GFR 30-59 ml/min Hearing loss History of Clostridioides difficile infection 2017 Renal cyst Pancreatic cyst History of colonic diverticulitis Raynauds syndrome Peripheral neuropathy History of anesthesia reaction had difficulty urinating after hernia surgery 2020--had to have a catheter placed for 10 days after Thyroid nodule Lung nodules CAD (coronary artery disease) stent (BMS) x1 to RCA (2013), follows with Dr. Willett Hx of gout GERD (gastroesophageal reflux disease) controlled, stable per pt Myocardial Infarction 2013 > stent x1 Hypertension controlled, stable per pt Hyperlipidemia Patient denies h/o stroke, seizures, DM, blood clots/DVTs or blood transfusions. Exercise / Class Metabolic Activity II 4-5 Yardwork/Stairs/Walk up hill (denies chest discomfort or shortness of breath with 1 FOS) Past Family History Family History Other No family history of adverse response to anesthesia Past Surgical History Surgical History History of esophagogastroduodenoscopy (EGD) History of colonoscopy History of herniorrhaphy x4--last [address] [facility] History of cholecystectomy History of tooth extraction History of tonsillectomy and adenoidectomy History of cataract surgery R/L History of heart artery stent [address] [facility]> stent x1 Past Anesthesia History No Family Hx of Anesthesia Complications and Other (post-op urinary retention requiring catheter x 9 days) History of PONV No Hx of PONV and No Hx of Motion Sickness Social History Smoking Status: Former smoker tobacco type: cigarettes Do You Dip or Chew Tobacco: No Smoking End Date: quit at age 36 Hx Alcohol Use: Yes Alcohol type: hard liquor alcohol intake frequency: holidays/special occasions only Hx Substance Use: No substance use type: does not use Review of Systems Snoring, denies witnessed apneas. Patient denies chest pain, shortness of breath, dyspnea on exertion, fever, chills, cough, wheezing, or palpitations. Physical Exam Vital Signs Vitals BP 144/82 P 74 TEMP 97.8 SP02 97% on RA RESP 17 Physical Patient resting comfortably in chair in no acute distress, alert and oriented, responding appropriately throughout visit Full cervical extension range of motion without pain TMD 3.5 finger breadths Mallampati Score 3, small oral opening Dentition: edentulous, full upper and lower dentures Lungs: normal respiratory effort. Good air movement, clear throughout to auscultation, no adventitious breath sounds Cardiac: regular rate and rhythm, no murmurs noted Carotid arteries: negative bruit bilat Lab Results Anesthesia Preop Results Results Anesthesia Widget: WBC 5.97 K/ul (4.8-10.8) 08/10/23 Hgb 12.8 g/dl (14.0-18.0) L 08/10/23 Hct 38.7 % (42.0-52.0) L 08/10/23 Plt 155 K/uL (130-400) 08/10/23 Na 138 mmol/L (136-145) 08/10/23 K 3.8 mmol/L (3.5-5.1) 08/10/23 Cl 107 mmol/L (98-107) 08/10/23 CO2 25 mmol/L (21-32) 08/10/23 BUN 19 mg/dl (6-23) 08/10/23 Creat 1.81 mg/dl (0.6-1.4) H 08/10/23 Glucose Level 109 mg/dl (70-99(Fasting)) H 08/10/23 PT 10.8 Seconds (9.0-12.0) 08/10/23 PTT 27 Seconds (21-31) 08/10/23 INR 1.0 (0.9-1.1) 08/10/23 Blood Type A Positive 08/10/23 Antibody Screen NEGATIVE 08/10/23 Testing Laboratory Results creatinine 1.8 pre-op 08/10/23. To chart review in [facility], creatinine was 1.9 02/16/23 and [facility] PCP noted that renal function was stable. Electrocardiogram Date: 08/10/23 Sinus rhythm with 1st degree AV block, rate 67 bpm Nonspecific T wave abnormality Chest X-Ray Date: 08/10/23 No acute cardiopulmonary findings. Echocardiogram Date: 09/20/21 EF 50-54% Mild cLVH Small sized inferior wall motion abnormality with hypokinesis of the segments Grade I diastolic dysfunction No significant valvular pathology
--- NOTE | 2023-08-31 12:13 | History & Physical Report ---
Date of Service August 31, 2023 Assessment & Plan (1) Rotator cuff arthropathy of right shoulder: We will proceed with a left reverse shoulder arthroplasty. Postoperatively he will be placed in an arm sling and kept overnight in the hospital for postop medical management. He plans to use energy physical therapy upon discharge. History of Present Illness Chief Complaint: Cuff tear arthropathy of the left shoulder. Primary Care Provider: Melissa Srinivasan MD Henrry is a pleasant 82-year-old male who has been dealing with left shoulder pain since he fell and dislocated his shoulder back in January. He has been following up with Dr. Krishna. He has had an injection. He has had an MRI and x-rays. Unfortunately, he has a massive retracted rotator cuff tear. 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 After failing conservative treatment, he has elected proceed with a left reverse shoulder arthroplasty. Allergies Allergy/AdvReac Type Severity Reaction Status Date / Time allopurinol Allergy Severe Facial/tongue Verified 08/02/23 10:55 swelling Sulfa (Sulfonamide Allergy Severe EDEMA Verified 08/02/23 10:55 Antibiotics) FACE/LIPS/TONGUE amoxicillin Allergy Intermediate Hives Verified 08/02/23 10:55 Calcium Channel Blocking Allergy Intermediate Hives Verified 08/02/23 10:55 Agents-Dih ethacrynic acid Allergy Intermediate Rash Verified 08/02/23 10:55 Penicillins Allergy Intermediate Hives Verified 08/02/23 10:55 shellfish derived Allergy Intermediate hands got Verified 08/02/23 10:55 itchy vancomycin Allergy Intermediate Rash Verified 08/02/23 10:55 indapamide Allergy Unknown CAN'T Verified 08/02/23 10:55 REMEMBER, ON [facility] MED LIST trichlormethiazide AdvReac Severe "Intolerance" Verified 08/02/23 10:[address] De León amlodipine AdvReac Intermediate "Intolerance" Verified 08/02/23 10:[address] [facility] [address] De León Beta-Blockers AdvReac Intermediate Bradycardia Verified 08/02/23 10:55 (Beta-Adrenergic Bloc ciprofloxacin [Cipro] AdvReac Intermediate RASH/SHAKIN Verified 08/02/23 10:55 G/DIZZINESS divalproex sodium AdvReac Intermediate Diarrhea Verified 08/02/23 10:55 [From Depakote] valproic acid AdvReac Intermediate Diarrhea Verified 08/02/23 10:55 Cantaloupe Allergy Intermediate Hives, rash Uncoded 08/02/23 10:55 Home Medications Medication Instructions Recorded Confirmed Type aspirin 81 mg tablet,delayed 81 mg PO 3XWK 10/21/20 08/02/23 History release atorvastatin 40 mg tablet 40 mg PO QAM 10/21/20 08/02/23 History febuxostat 80 mg tablet (Uloric) 80 mg PO QAM 10/21/20 08/02/23 History finasteride 5 mg tablet 5 mg PO QAM 10/21/20 08/02/23 History hydralazine 50 mg tablet 50 mg PO TID 10/21/20 08/02/23 History lisinopril 40 mg tablet 40 mg PO QAM 10/21/20 08/02/23 History nitroglycerin 0.4 mg sublingual 0.4 mg sublingual UD PRN Chest Pain 10/21/20 08/02/23 History tablet pantoprazole 40 mg tablet,delayed 40 mg PO QAM 10/21/20 08/02/23 History release (Protonix) tamsulosin 0.4 mg capsule 0.4 mg PO QAM 10/21/20 08/02/23 History albuterol sulfate 90 mcg/actuation 2 puff inhalation Q6H PRN 02/06/23 08/02/23 History aerosol inhaler CONGESTION/COUGH/WHEEZING diclofenac sodium 1 % topical gel 4 g topical BID PRN Pain 02/06/23 08/02/23 History oxycodone 5 mg tablet 5 mg PO Q6H PRN pain #10 tabs 02/06/23 08/02/23 Rx cyanocobalamin (vitamin B-12) 1,000 mcg PO QAM 08/02/23 08/02/23 History 1,000 mcg tablet (Vitamin B-12) fluticasone propionate 50 1 spray intranasal BID 08/10/23 08/10/23 History mcg/actuation nasal spray,suspension (Allergy Relief (fluticasone)) ketoconazole 2 % shampoo ea topical 08/10/23 History Past Med/Surg History Medical History BPH (benign prostatic hyperplasia) Potential difficult intubation on pre-intubation airway assessment Mallampati Score 3, small oral opening CKD (chronic kidney disease) stage 3, GFR 30-59 ml/min Hearing loss History of Clostridioides difficile infection 2017 Renal cyst Pancreatic cyst History of colonic diverticulitis Raynauds syndrome Peripheral neuropathy History of anesthesia reaction had difficulty urinating after hernia surgery 2020--had to have a catheter placed for 10 days after Thyroid nodule Lung nodules CAD (coronary artery disease) stent (BMS) x1 to RCA (2013), follows with Dr. Willett Hx of gout GERD (gastroesophageal reflux disease) controlled, stable per pt Myocardial Infarction 2014 > stent x1 Hypertension controlled, stable per pt Hyperlipidemia Surgical History History of esophagogastroduodenoscopy (EGD) History of colonoscopy History of herniorrhaphy x4--last 2020 @ [facility] History of cholecystectomy History of tooth extraction History of tonsillectomy and adenoidectomy History of cataract surgery R/L History of heart artery stent 2013 @ [facility]> stent x1 Family History Other No family history of adverse response to anesthesia Social History Smoking Status: Former smoker Tobacco Type: Cigarettes Second Hand Exposure: No; Do You Dip or Chew Tobacco: No; Hx Alcohol Use: Yes Alcohol type: hard liquor Hx Substance Use: No Preferred Language: Mosotho Communication Ability: Effective Bag Machine Helper Required: No Beliefs That Will Affect Care: None Current Living Situation: Spouse Feels Safe at Home: Yes Assistive Devices: Denture - Upper, Denture - Lower and Glasses Review of Systems All systems reviewed & are unremarkable except as noted in HPI & below. Physical Exam On physical examination of the left shoulder, he has a pseudoparalysis and weakness throughout.. Constitutional WD/WN, vitals as above Eyes PERRL, conjunctivae normal, anicteric sclerae ENMT external ear and nose normal, oropharynx normal Neck trachea midline, no thyromegaly Respiratory normal respiratory effort Cardiovascular RRR, no murmur, no edema Gastrointestinal (Abdomen) normal bowel sounds, soft, nontender, no hepatosplenomegaly Psychiatric A+Ox3, euthymic affect Results & Data Results & Data Laboratory Results . Diagnostic Findings X-rays of the left shoulder show some superior migration of the humeral head and the glenoid. There is some glenohumeral arthritis MRI of the left shoulder shows a massive retracted rotator cuff tear.. PG Care Time/CCT Total # of Minutes Spent Total Time Spent with Patient: Total time spent is greater than 50% in coordination of care (as documented) at patient's floor/unit and/or counseling patient: Coding Level of Care Code None Diagnoses Rotator cuff arthropathy of right shoulder M12.811
[~2023-09-05 08:41] MED LIST changes: +ACETAMINOPHEN 500 MG TAB PO SCH; +BUPIVACAINE 0.5 % 5 MG/1 ML PF 10ML VIAL ONE; -CLINDAMYCIN 600 MG/54 ML BAG IV SCH; +FAMOTIDINE 20 MG TAB PO SCH; +GABAPENTIN 300 MG CAP PO SCH; -LACTATED RINGER'S 1,000 ML IV SCH; +LR 15ML/HR IV SCH; +LR 60ML/HR IV SCH; +ROPIV 0.5% 246mg, Ketorolac 30mg, EPINEPHrine 0.5mg in NSS INFIL SCH; +TRANEXAMIC ACID 1,000 MG **IV Intra-op IV SCH; +TRANEXAMIC ACID 1,000 MG **IV Pre-op IV SCH; +ceFAZolin 2000MG 2,000 MG/15 ML SYR IV SCH; +dexAMETHasone**PF** 10 MG/ML VIAL IV SCH
[2023-09-05] MEDS ORDERED: Nursing to Pharmacy Communication SCH (09:15)
[2023-09-05] MEDS ORDERED: LIDOCAINE 2% 2 ML VIAL/AMP(20MG/ML) INFIL ONE (10:07)
[2023-09-05] MEDS ORDERED: PROPOFOL IV EMULSION 10 MG/ML 20 ML VIAL IV ONE (10:07)
[2023-09-05] MEDS ORDERED: MIDAZOLAM HCL 1 MG/ML 2ML VIAL ONE (10:08)
[2023-09-05] MEDS ORDERED: fentaNYL citrate PF 100 MCG/2 ML VIAL ONE ×2 (10:08→11:15)
--- OUTSIDE RECORDS SUMMARY | 2023-09-05 10:25 | External Medical Summary | Summary of Care ---
Author Name Unknown Organization [facility] Address [address] [place] [address] Phone [phone] Care Team Providers Care Permaculture Contractor Name Role Phone Melissa Srinivasan MD Primary Care Provider [phone] Reason for Visit * Reason Onset Date Comments Test Results 08/25/2023 Encounter Details Date Type Department Care Team (Late st Contact Info) Description 08/25/2023 Telephone General Internal Medicine [facility] [place] [address] [place] [address] Melissa Srinivasan MD [address] [place] [address] Test Results Allergies Active Allergy Reactions Criticality Noted Date Comments Allopurinol Edema face/lips/tongue,Rash High 09/05/2011 Edema Amoxicillin Hives 07/19/2004 Calcium Channel Blockers Hives 02/04/2011 Ciprofloxacin Rash 11/23/2014 shakey and Dizzy Also Depakote Er Diarrhea 12/28/2009 Ethacrynate Sodium Rash High 12/09/2010 Was taking Calan with Edecrin when he developed rash Ethacrynic Acid Rash 04/21/2015 Indapamide 09/19/2011 Metoprolol Bradycardia 06/03/2013 Other - Foods Hives 07/19/2004 cantaloupe Shellfish-Derived Products Itching Low 02/15/2023 Sulfa Antibiotics Edema face/lips/tongue High 09/15/2009 Vancomycin Rash 10/30/2012 documented as of this encounter (statuses as of 08/25/2023) Medications Medication Sig Dispensed Refills Start Date End Date Status ASPIRIN 81 MG PO TABS 1 TABLET DAILY 0 04/08/2014 Active nitroglycerin (NITROSTAT) 0.4 MG SUBLIndications:Cor onary artery disease involving [place] coronary artery of [place] heart without angina pectoris One tablet under tongue if needed for chest pain. May repeat 3 times. If chest pain continues, call [phone] Tab 1 03/20/2018 Active Ketoconazole 2 % External ShampooIndications: Seborrheic dermatitis of scalp Shampoo twice a week for 4 weeks 120 mL 1 05/11/2020 Active Diclofenac Sodium 1 % External Gel (Voltaren)Indicatio ns:Pain in joint of left shoulder,Pain of left upper arm Apply topically to affected area 2 g 2 times a day as needed for Pain. Apply to left shouder and arm 150 g 5 05/30/2022 Active Febuxostat 80 MG Oral Tablet (Uloric) Take 1 Tablet by mouth in the morning. 30 Tablet 11 10/06/2022 Active Fluticasone Propionate 50 MCG/ACT Nasal Suspension (Flonase)Indication s:Chronic pansinusitis Administer 2 Sprays into each nostril in the morning. 16 g 2 11/28/2022 Active Additional Information Patient taking differently:2 Bath Each NostrilPRN, Rhinitis, Reported on 02/15/2023 B-12 1000 MCG Oral LozengeIndications: B12 deficiency Take 1 daily 0 02/21/2023 Active Tamsulosin HCl 0.4 MG Oral Capsule (Flomax)Indications :BPH with obstruction/lower urinary tract symptoms Take 1 Capsule by mouth in the morning. 90 Capsule 3 02/22/2023 Active Finasteride 5 MG Oral Tablet (Proscar) Take 1 Tablet by mouth in the morning. 90 Tablet 3 02/22/2023 Active Atorvastatin Calcium 40 MG Oral Tablet (Lipitor)Indication s:Hypercholesteremi a Take 1 Tablet by mouth in the morning. 90 Tablet 1 07/01/2023 Active Lisinopril 40 MG Oral Tablet TAKE 1 TABLET BY MOUTH ONCE DAILY IN THE MORNING 90 Tablet 0 07/18/2023 Active hydrALAZINE HCl 50 MG Oral Tablet (Apresoline) TAKE 1 AND A HALF TABLETS BY MOUTH IN THE MORNING, 1 TABLET IN THE AFTERNOON, AND 1 AND A HALF TABLETS BY MOUTH IN THE EVENING 360 Tablet 1 07/24/2023 Active Pantoprazole Sodium 40 MG Oral Tablet Delayed Release (Protonix)Indicatio ns:GERD (gastroesophageal reflux disease) Take 1 tablet by mouth once daily 90 Tablet 0 08/18/2023 Active Azelastine HCl 0.1 % Nasal Solution (Astelin)Indication s:Upper respiratory tract infection, unspecified type Administer 1 Bath into nostril in the morning and 1 Bath before bedtime. 30 mL 12 08/24/2023 Active documented as of this encounter (statuses as of 08/25/2023) Active Problems Problem Noted Date Diagnosed Date Benign hypertension with stage 3b chronic kidney disease 12/22/2020 Overview: Per CKD protocol Stage 3b chronic kidney disease 09/22/2020 Idiopathic chronic gout of multiple sites withou t skyes 12/21/2018 Primary osteoarthritis of both shoulders 017 History of placement of stent in LAD coronary ar robert 10/12/2016 Sensorineural hearing loss (SNHL) of both ears 0 10/10/2016 Thyroid nodule 10/10/2016 History of Clostridium difficile colitis 017 Primary osteoarthritis of both hips 08/03/2016 Impingement syndrome of both shoulders 6 Beta-blockers contraindicated due to bradycardia 01/24/2016 Incidental lung nodule, > 3mm and < 8mm 04/10/20 15 Dyslipidemia, goal LDL below 70 01/26/2015 BPH with obstruction/lower urinary tract symptom s 08/20/2014 CAD (coronary artery disease) 04/08/2014 Presence of bare metal stent in right coronary a rtery 04/08/2014 Diverticulitis of colon 02/01/2013 Renal cyst 11/02/2012 Generalized osteoarthritis 04/06/2012 HTN, goal below 140/90 01/28/2011 Raynaud's syndrome 11/16/2010 PERIPHERAL NEUROPATHY 11/16/2010 ADVANCE DIRECTIVE INFORMATION 01/21/2005 Overview: Pt given advanced directive on previous appointment. 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 Epididymitis 01/06/2015 03/15/2017 Overview: Right side. 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 1 Other paraproteinemias 11/16/201003/31 documented as of this encounter (statuses as of 08/25/2023) Immunizations Name Administration Dates Next Due COVID-19 mRNA, LNP-s, No Pre serve, 2-Dose Series ([employer]) 06/21/2021,11/26/2020,11/04/2020 Pneumococcal Conjugate Vacc, 13 Valent (Prevnar) 12/15/2015 Pneumococcal Polysaccharide PPV23 (Pneumovax) 11/21/2013 Season Influenza, Quad, PF, Adjuvanted, 65+ Yrs, IM (FLUAD) 06/26/2020 Seasonal Influenza, PF, 6 M & above, IM , (FluLaval or Fluzone) 05/19/2018,09/20/2017 05/19/2019 Seasonal Influenza, Quadriva lent Hd (Fluzone Hd) 05/31/2023,05/30/2022,05/24/2021 Seasonal Influenza, Quadriva lent Hd, 65+ Yrs 05/30/2022,05/24/2021,06/26/2020,09/14,05/19/2018,09/20/2017,06/20/20 16,06/04/2014,05/13/2013,06/14/2012,1 09/26/2010 Seasonal Influenza, Quadriva lent, No Preserve, IM 06/20/2016,06/15/2015 Seasonal Influenza, Split, I IV3, With Preserve, Inj 06/04/2014,05/13/2013,06/14/2012,07/14 Seasonal Influenza, Trivalen t, Adjuvanted, 65+ yrs 09/23/2019 TDAP (age 10 and older)(Boostrix) 03/15/2017 documented as of this encounter Social History Tobacco Use Types Packs/Day Years Used Date Smoking Tobacco: Former Cigarettes Q uit: 06/20/1977 Smokeless Tobacco: Never Comments:Quit about 1969's Alcohol Use Standard Drinks/Week Comments Not Currently 0 (1 standard drink = 0.6 oz pur e alcohol) Rare PHQ-2 Answer Date Recorded PHQ Adult Total Score 2 11/28/2022 Hunger Vital Sign Answer Date Recorded Within the past 12 months, y ou worried that your food would run out before you got the money to buy more. Never true 11/29/19 23 Within the past 12 months, t he food you bought just didn't last and you didn't have money to get more. Never true 11/28/2022 Sex and Gender Information Value Date Recorded Sex Assigned at Male 03/22/2019 10:06 AM EDT Gender Identity Male 03/22/2019 10:06 AM EDT Sexual Orientation Straight 03/22/2019 10 :06 AM EDT Job Start Date Occupation Industry Not on file Not on file Not on file documented as of this encounter Miscellaneous Notes * Telephone Encounter - Nayely Quiles LPN - 08/25/2023 8:48 AM EST Patient notified of message below. Verbalized understanding. He is on his way to get his CXR now. * Telephone Encounter - Nayely Quiles LPN - 08/25/2023 8:41 AM EST ----- Message from Melissa Srinivasan MD sent at 08/25/2023 8:29 AM EST ----- PCR showed covid and he is out of window for Paxlovid. Continue recommendation given in last appoint to use astelin and mucinex Also to get CXR Today as ordered documented in this encounter Plan of Treatment Upcoming Encounters Date Type Department Care Team (Latest Contact Info) Description 08/31/2023 10:00 AM EST Laboratory Laboratory, [place] [address] [place] [id number] [place] Laboratory [address] [place] [place] [address] 11/20/2023 2:30 PM EDT Hospital Encounter ENDO [facility], Endoscopy Room [facility] [address] [place] [address] Fauzia Trammell MD [address] [place] [address] 11/20/2023 2:30 PM EDT - 11/20/2023 3:00 PM EDT Surgery ENDO [facility], Endoscopy Room [facility] [address] [place] [address] [id number] Fauzia Trammell MD [address] [place] [address] COLONOSCOPY FLEXIBLE PROXIMAL DIAGNOSTIC 12/25/2023 1:40 PM EDT [facility] [address] [place], [place] [address] Jacques Srinivasan MD [address] [place] [address] 02/27/2024 10:15 AM EDT Office Visit Urology, [facility] [address] [place] [address] Eladio Vidal MD [address] [place] [address] [place] [address] 05/14/2024 10:20 AM EDT Office Visit Rheumatology [facility] [address] [place] [address] Saji Mcghee MD [address] [place], [place] [address] Scheduled Procedures Name Priority Associated Diagnoses Date/Ti me COLONOSCOPY FLEXIBLE PROXIMAL DIAGNOSTIC Recall History of colon polyps 11/20/2023 2:30 PM EDT Health Maintenance Due Date Last Done Comments Zoster Vaccines (1 of 2) 1990 COVID-19 Vaccine ( - season) 2023 06/21/2021, 11/26/2020, 11/04/2020 COLONOSCOPY-EVERY 3 YRS AGES 18-100 04/28/2023 04/28/2020, 04/28/2020, 04/25/2017, Additional history exists GFR 11/28/2023 05/29/2023, 07/0 01/2023, 11/28/2022, Additional history exists Albumin/Creatinine Ratio 11/29/2023 023, 01/18/2013, 02/27/2012 Depression Screening 11/29/2023 11/28/2022 CKD HGB USE SMARTSET 04081 05/29/202405/29, 04/03/2023, 04/03/2023, Additional history exists CKD PHOS USE SMARTSET 19848 05/29/202405/14, 05/16/2022, 09/20/2021, Additional history exists DTaP,Tdap,and Td Vaccines (2 - Td or Tdap) 03/15/2027 03/15/2017 Pneumococcal Vaccine: 65+ Years Completed 12/15/2015, 11/21/2013 Influenza Vaccine (FLU shot) Completed , 05/30/2022, 05/30/2022, Additional history exists GARDASIL-HPV IMMUNIZATION SERIES Aged Out No longer eligible based on patient's age to complete this topic Hepatitis B Aged Out No longer eligi ble based on patient's age to complete this topic MENINGOCOCCAL (MENACTRA/MENVEO) Aged Out No longer eligible based on patient's age to complete this topic documented as of this encounter Medical Devices Implanted Type Area Information Systems Audit Manager Device Identifier Shelf Expiration Date Model / Serial / Lot Mesh Prolite Nohole 2.5x5.5in - [id number] Implanted:Qty: 1 on 02/03/2015 by Millie Robin MD at [facility] Left: Groin [employer] 07/13/2016 [id number] / / [id number] Description:2.5 in x 5.5 in (6.4 cm x 14 cm) mesh prolite, no hole documented as of this encounter Additional Health Concerns Infection Onset Date Last Indicated Resolved Time Respiratory Rule-Out 08/24/2023 08/24/2023 024 12:50 AM EST documented as of this encounter Advance Directives Latest Code Status on File Code Status Date Activated Date Inactivated Comments Full Code 11/30/2018 8:18 AM 11/30/2018 1:12 PM This order reflects the patients wishes and were consensually agreed upon. Question Answer Comments Discussion of Advance Directives occurred with: Patient Does the patient have a Living Will? No Does the patient have Health Care Power of Pole Cutter? No Care Teams Permaculture Contractor Relationship Specialty Start Date End Date Melissa Sriinvasan MD [address] [place] [address] PCP - General Internal Medicine 12/29/21 documented as of this encounter
--- OUTSIDE RECORDS SUMMARY | 2023-09-05 10:25 | External Medical Summary | Summary of Care ---
Author Name Unknown Organization [facility] Address [address] [place] [address] Phone [phone] Care Team Providers Care Glue Mixer Name Role Phone Melissa Srinivasan MD Primary Care Provider [phone] Reason for Visit * Reason Onset Date Comments Test Results 08/25/2023 Encounter Details Date Type Department Care Team (Late st Contact Info) Description 08/25/2023 Telephone General Internal Medicine [facility] [place] [address] [facility] [place] [address] Melissa Srinivasan MD 200 [place] [address] Test Results Allergies Active Allergy Reactions Criticality [...] 0.4 MG SUBLIndications:Cor onary artery disease involving menominee coronary artery of menominee heart without angina pectoris One tablet under tongue if needed for chest pain. May repeat 3 times. If chest pain continues, call [phone] Tab 1 03/20/2018 Active Ketoconazole 2 % [...] 11/28/2022 Active Additional Information Patient taking differently:2 [place] Each NostrilPRN, Rhinitis, Reported on 02/15/2023 B-12 [...] respiratory tract infection, unspecified type Administer 1 [place] into nostril in the morning and 1 [place] before bedtime. 30 mL 12 08/24/2023 Active predniSONE 20 MG Oral Tablet (Deltasone)Indicati ons:Acute bronchitis due to COVID-19 virus Take 2 Tablets by mouth in the morning for 5 days. 10 Tablet 0 08/25/2023 08/30/2023 Active Ventolin HFA 108 (90 Base) MCG/ACT Inhalation Aerosol SolutionIndications :Acute bronchitis due to COVID-19 virus Inhale 2 Puffs by mouth 4 times a day as needed for Wheezing. Or coughing spells 18 g 1 08/25/2023 Active documented as of this encounter (statuses [...] pain. Epididymitis 01/06/2015 03/15/2017 Overview: Right side. [place], old 04/08/2014 08/11/2014 Hypercholesteremia 02/05/2014 7 Diverticulitis [...] mRNA, LNP-s, No Pre serve, 2-Dose Series ([employer]) 06/21/2021,11/26/2020,11/04/2020 Pneumococcal Conjugate Vacc, 13 Valent (Prevnar) [...] Encounter - Nayely Quiles LPN - 08/25/2023 12:45 PM EST Patient notified of message below. Verbalized understanding. Agreeable to medications. Pharmacy pended. * Telephone Encounter - Nayely Quiles LPN - 08/25/2023 12:42 PM EST ----- Message from Melissa Srinivasan MD sent at 08/25/2023 10:16 AM EST ----- CXR normal - no pneumonia so chest lightlessness/heaviness from coughing pr bronchitis from covid .Suggest 40 mg daily prednisone for 5 days and albuterol 2 puff 3 times a day for 1 week then as needed for coughing spells . He doesn't check my G often documented in this encounter Plan of Treatment Upcoming Encounters Date Type Department Care Team (Latest Contact Info) Description 08/31/2023 10:00 AM EST Laboratory Laboratory, [place] [address] [place] [phone] [place], Laboratory [address] [place] [address] 11/20/2023 2:30 PM EDT Hospital Encounter ENDO [facility], Endoscopy Room [facility] [place] [address] Fauzia Trammell MD [address] [place] [address] 11/20/2023 2:30 PM EDT - 11/20/2023 3:00 PM EDT Surgery ENDO [facility], Endoscopy Room [facility] [address] [place] [phone] Fauzia Trammell MD [address] [facility] [place] [address] COLONOSCOPY FLEXIBLE PROXIMAL DIAGNOSTIC 12/25/2023 1:40 PM EDT Office Visit Nephrology, [facility] [address] [facility] [address] [place] [address] Jacques Srinivasan MD [address] [facility] [place] [address] 02/27/2024 10:15 AM EDT Office Visit Urology, [facility] [address] [facility] [place] [address] Eladio Vidal MD [address] [facility] [address] [place] [address] 05/14/2024 10:20 AM EDT Office Visit Rheumatology [address] [place] [address] Saji Mcghee MD [facility] [place] [address] Scheduled Procedures Name Priority Associated Diagnoses Date/Ti me COLONOSCOPY FLEXIBLE PROXIMAL DIAGNOSTIC Recall History of colon polyps 11/20/2023 2:30 PM EDT Health Maintenance Due Date Last Done Comments Zoster Vaccines (1 of 2) 1990 COVID-19 Vaccine ( season) 2023 06/21/2021, 11/26/2020, 11/04/2020 COLONOSCOPY-EVERY 3 YRS AGES 18-100 04/28/2023 04/28/2020, 04/28/2020, 04/25/2017, Additional history exists GFR 11/28/2023 05/29/2023, 07/0 01/2023, 11/28/2022, Additional history exists Albumin/Creatinine Ratio 11/29/2023 023, 01/18/2013, 02/27/2012 Depression Screening 11/29/2023 11/28/2022 CKD HGB USE SMARTSET 68881 05/29/202405/29, 04/03/2023, 04/03/2023, Additional history exists CKD PHOS USE SMARTSET 74252 05/29/202405/14, 05/16/2022, 09/20/2021, Additional history exists DTaP,Tdap,and [...] this encounter Medical Devices Implanted Type Area Middleware Architect Device Identifier Shelf Expiration Date Model / Serial / Lot Mesh Prolite Nohole 2.5x5.5in - [id number] Implanted:Qty: 1 on 02/03/2015 by Millie Robin MD at [place] [facility] Left: Groin [employer] 07/13/2016 [id number] / / [id number] Description:2.5 in x 5.5 in (6.4 cm x 14 cm) mesh prolite, no hole documented as of this encounter Visit Diagnoses Diagnosis Acute bronchitis due to COVID-19 virus- Primary History of colon polyps Personal history of colonic polyps documented in this encounter Additional Health Concerns Infection Onset [...] the patient have Health Care Power of Dry Cleaner Hand? No Care Teams Glue Mixer Relationship Specialty Start Date End Date Melissa Srinivasan MD 200 [place] [address] PCP - General Internal Medicine 12/29/21 documented as of this encounter
--- OUTSIDE RECORDS SUMMARY | 2023-09-05 10:25 | External Medical Summary | Summary of Care ---
Author Name Unknown Organization [facility] Address [address] [place] [address] Phone [phone] Care Team Providers Care Pipeline Systems Operator Name Role Phone Melissa Srinivasan MD Primary Care Provider [phone] Reason for Visit * Reason Comments Cold Symptoms C/o cough and conges tion x 2 weeks. 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; HTN, goal below 140/90; Idiopathic chronic gout of multiple sites without tophus; Stage 3b chronic kidney disease (HCC); Incidental lung nodule, > 3mm and < 8mm; History of placement of stent in LAD coronary artery Allergies Active Allergy Reactions Criticality Noted Date [...] as of this encounter (statuses as of 2023) Medications Medication Sig Dispensed Refills Start Date End Date Status ASPIRIN 81 MG PO TABS 1 TABLET DAILY 0 04/08/2014 Active nitroglycerin (NITROSTAT) 0.4 MG SUBLIndications:Cor onary artery disease involving upper mattaponi coronary artery of upper mattaponi heart without angina pectoris One tablet under tongue if needed for chest pain. May repeat 3 times. If chest pain continues, call [phone] Tab 1 03/20/2018 Active Ketoconazole 2 % [...] 11/28/2022 Active Additional Information Patient taking differently:2 [place] Each NostrilPRN, Rhinitis, Reported on 02/15/2023 B-12 [...] respiratory tract infection, unspecified type Administer 1 [place] into nostril in the morning and 1 [place] before bedtime. 30 mL 12 08/24/2023 Active documented as of this encounter (statuses as of 2023) Active Problems Problem Noted Date Diagnosed Date Benign hypertension with stage 3b chronic kidney disease 12/22/2020 Overview: Per CKD protocol Stage 3b chronic kidney disease 09/22/2020 Idiopathic chronic gout of multiple sites withou t tophus 12/21/2018 Primary osteoarthritis of both shoulders 017 [...] as of this encounter (statuses as of 2023) Resolved Problems Problem Noted Date Diagnosed Date [...] pain. Epididymitis 01/06/2015 03/15/2017 Overview: Right side. [place], old 04/08/2014 08/11/2014 Hypercholesteremia 02/05/2014 7 Diverticulitis [...] as of this encounter (statuses as of 2023) Immunizations Name Administration Dates Next Due COVID-19 mRNA, LNP-s, No Pre serve, 2-Dose Series ([employer]) 06/21/2021,11/26/2020,11/04/2020 Pneumococcal Conjugate Vacc, 13 Valent (Prevnar) [...] uit: 06/20/1977 Smokeless Tobacco: Never Comments:Quit about 1970's Alcohol Use Standard Drinks/Week Comments Not Currently [...] on file documented as of this encounter Last Filed Vital Signs Vital Sign Reading Time Taken Comments Blood Pressure 124/80 08/24/2023 4:31 PM EST Pulse 94 08/24/2023 4:31 PM EST Temperature 37.2 C (99 F) 08/24/2023 4:31 PM EST Respiratory Rate - - Oxygen Saturation 99% 08/24/2023 4:31 PM EST Inhaled Oxygen Concentration - - Weight 75.2 kg (165 lb 11.2 oz) 08/24/2023 4:31 PM EST Height - - Body Mass Index 25.95 05/31/2023 11:54 AM EDT documented in this encounter Progress Notes * Melissa Srinivasan MD - 08/24/2023 4:37 PM EST Images from the original note were not included. History of Present Illness Henrry Aldridge is a 82 year old male that presents for Cold Symptoms (C/o cough and congestion x 2 weeks. ) 82 year old male with a history of HTN, Gout, NSTMI, RUL nodule, recurrent diverticulitis treated with sigmoidectomy, Pancreatic Cyst, and CKD stage III presents here for eval of cough No covid booster . Cold Symptoms This is a new problem. The current episode started 1 to 4 weeks ago (2 weeks). The problem has beengradually worsening. Associated symptoms include chest pain (mild central), congestion, coughing, headaches, nausea, a plugged ear sensation, rhinorrhea, sinus pain, sneezing and a sore throat. Pertinent negatives include no diarrhea or wheezing. Associated symptoms comments: Lack of appetite and fatigue , bodyaches in the beginning . He has tried nothing for the symptoms. The treatment provided no relief. Physical Exam Vitals: 08/24/23 1631 Temp: 37.2 C (99 F) Pulse: 94 SpO2: 99% BP: 124/80 Physical Exam Constitutional: General: He is not in acute distress. Appearance: Normal appearance. HENT: Head: Normocephalic. Right Ear: Ear canal and external ear normal. Left Ear: Ear canal and external ear normal. Nose: Congestion and rhinorrhea present. Mouth/Throat: Mouth: Mucous membranes are moist. Pharynx: Posterior oropharyngeal erythema present. No oropharyngeal exudate. Cardiovascular: Rate and Rhythm: Normal rate and regular rhythm. Heart sounds: No murmur heard. No gallop. Pulmonary: Effort: Pulmonary effort is normal. Breath sounds: No stridor. No wheezing or rhonchi. Chest: Chest wall: No tenderness. Abdominal: General: There is no distension. Palpations: Abdomen is soft. There is no mass. Tenderness: There is no abdominal tenderness. Musculoskeletal: General: No swelling or tenderness. Cervical back: No rigidity or tenderness. Lymphadenopathy: Cervical: No cervical adenopathy. Neurological: Mental Status: He is alert. I have reviewed the following results: CMP Assessment and Plan Chest pressure Need to r/o pneumonia - XR CHEST 2 VIEWS; Future Upper respiratory tract infection, unspecified type - RESPIRATORY PATHOGEN PANEL, PCR; Future - Azelastine HCl 0.1 % Nasal Solution (Astelin); Administer 1 [place] into nostril in the morning and1 [place] before bedtime. 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 documented in this encounter Nursing Notes * Nayely Quiles LPN - 08/24/2023 4:30 PM EST Chief Complaint Patient presents with Cold Symptoms C/o cough and congestion x 2 weeks. documented in this encounter Plan of Treatment Upcoming Encounters Date Type Department Care Team (Latest Contact Info) Description 11/20/2023 2:30 PM EDT Hospital Encounter ENDO [facility], Endoscopy Room [facility] [address] [place] [phone] Fauzia Trammell MD [address] [place] [address] 11/20/2023 2:30 PM EDT - 11/20/2023 3:00 PM EDT Surgery ENDO [facility], Endoscopy Room [facility] [address] [place] [phone] Fauzia Trammell MD [address] [place] [address] COLONOSCOPY FLEXIBLE PROXIMAL DIAGNOSTIC 12/25/2023 1:40 PM EDT Office Visit Nephrology, [facility] [address] [facility] [address] Jacques Srinivasan MD 200 [facility] [place] [address] 02/27/2024 10:15 AM EDT Office Visit Urology, [facility] [address] [place] [address] Eladio Vidal MD 27 [facility] [address] [place] [address] 05/14/2024 10:20 AM EDT Office Visit Rheumatology [place] [phone] [facility] [place] [address] Saji Mcghee MD [address] [facility] [place] [address] Scheduled Procedures Name Priority Associated Diagnoses Date/Ti me COLONOSCOPY FLEXIBLE PROXIMAL DIAGNOSTIC Recall History of colon polyps 11/20/2023 2:30 PM EDT Health Maintenance Due Date Last Done Comments Zoster Vaccines (1 of 2) 1990 COVID-19 Vaccine (4 - season) 2023 06/21/2021, 11/26/2020, 11/04/2020 COLONOSCOPY-EVERY 3 YRS AGES 18-100 04/28/2023 04/28/2020, 04/28/2020, 04/25/2017, Additional history exists Albumin/Creatinine Ratio 11/29/2023 023, 01/18/2013, 02/27/2012 Depression Screening 11/29/2023 11/28/2022 GFR 02/29/2024 08/31/2023, 05/14, 02/16/2023, Additional history exists CKD HGB USE SMARTSET 20432 08/31/202408/31, 05/29/2023, 04/03/2023, Additional history exists CKD PHOS USE SMARTSET 06858 08/31/202408/14, 05/29/2023, 05/16/2022, Additional history exists DTaP,Tdap,and Td Vaccines (2 [...] this encounter Medical Devices Implanted Type Area Maintenance Worker Swimming Pool Device Identifier Shelf Expiration Date Model / Serial / Lot Mesh Prolite Nohole 2.5x5.5in - [id number] Implanted:Qty: 1 on 02/03/2015 [place] Mill[place] [facility]: Groin [employer] 07/13/2016 [id number] / / [id number] Description:2.5 in x 5.5 in (6.4 cm x 14 cm) mesh prolite, no hole documented as of this encounter Procedures Procedure Name Priority Date/Time Associated Diagnosis Comments RESPIRATORY PATHOGEN PANEL, PCR Routine 08/24/2023 4:53 PM EST Upper respiratory tract infection, unspecified type documented in this encounter Results * XR CHEST 2 VIEWS (08/25/2023 9:34 AM EST) Anatomical Region Laterality Modality Chest Computed Radiogr aphy 08/25/2023 9:55 AM EST Impressions 08/25/2023 9:53 AM EST IMPRESSION: No focal consolidation. Narrative 08/25/2023 9:53 AM EST EXAM: EXAM: XR CHEST 2 VIEWS DATE TIME: 08/25/2023 - 08/25/2023 9:34 am HISTORY: 82 y/o M chest pressure , cough for 2 weeks COMPARISON: CT chest 09/25/2020. FINDINGS: No focal consolidation, pleural effusion, or pneumothorax. Cardiac silhouette is normal in size. Degenerative changes of the spine. Procedure Note Domingo Dang MD - 08/25/2023 EXAM: EXAM: XR CHEST 2 VIEWS DATE TIME: 08/25/2023 - 08/25/2023 9:34 am HISTORY: 82 y/o M chest pressure , cough for 2 weeks COMPARISON: CT chest 09/25/2020. FINDINGS: No focal consolidation, pleural effusion, or pneumothorax. Cardiac silhouette is normal in size. Degenerative changes of the spine. IMPRESSION IMPRESSION: No focal consolidation. Melissa Srinivasan MD RADIOLOGY (RAD GENER AL) * (ABNORMAL) RESPIRATORY PATHOGEN PANEL, PCR (08/24/2023 4:53 PM EST) Adenovirus by PCR Negative Negative 024 12:50 AM EST LABORATORY [facility] Coronavirus 229E by PCR Negative Negative 08/25/2023 12:50 AM EST LABORATORY C Coronavirus HKU1 by PCR Negative Negative 08/25/2023 12:50 AM EST [facility] Coronavirus NL63 by PCR Negative Negative 08/25/2023 12:50 AM EST LABORATORY C Coronavirus OC43 by PCR Positive(A) Negative 08/25/2023 12:50 AM EST [facility]ORATORY [facility] Comment:Coronavirus OC43 det ected by PCR (amplified probe). Coronavirus SARS-CoV-2 by PCR Negative Negative 08/25/2023 12:50 AM EST LABORATORY [facility] Human Metapneumovirus by PCR Negative Negative 08/25/2023 12:50 AM EST LABORATORY [facility] Rhinovirus/Enterov irus by PCR Negative Negative 08/25/2023 12:50 AM EST LABORATORY [facility] Influenza A Virus by PCR Negative Negative 08/25/2023 12:50 AM EST LABORATORY [facility] Influenza B Virus by PCR Negative Negative 08/25/2023 12:50 AM EST LABORATORY [facility] Parainfluenza Virus 1 by PCR Negative Negative 08/25/2023 12:50 AM EST LABORATORY [facility] Parainfluenza Virus 2 by PCR Negative Negative 08/25/2023 12:50 AM EST LABORATORY [facility] Parainfluenza Virus 3 by PCR Negative Negative 08/25/2023 12:50 AM EST LABORATORY [facility] Parainfluenza Virus 4 by PCR Negative Negative 08/25/2023 12:50 AM EST LABORATORY [facility] Respiratory Syncytial Virus by PCR Negative Negative 08/25/2023 12:50 AM EST LABORATORY [facility] Bordetella pertussis by PCR Negative Negative 08/25/2023 12:50 AM EST LABORATORY [facility] Chlamydia pneumoniae by PCR Negative Negative 08/25/2023 12:50 AM EST LABORATORY [facility] Mycoplasma pneumoniae by PCR Negative Negative 08/25/2023 12:50 AM EST LABORATORY [facility] Bordetella parapertussis by PCR Negative Negative 08/25/2023 12:50 AM EST LABORATORY [facility] Comment: The primers that detect Rhinovirus may cross react with some Enterorviruses. The validation of bronchial specimens, tracheal aspirates, and throats for this assay was developed and performance characteristics determined by [employer]. The validation of alternate specimen types has not been cleared or approved by the U.S. Food and Drug Administration (FDA). It has been determined that such clearance or approval is not necessary. 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) Coronary artery disease involving upper matt[place] coronary artery of upper mattaponi heart without angina pectoris HTN, goal below 140/90 Unspecified essential hypertension Idiopathic chronic gout of multiple sites without tophus Chronic gouty arthropathy without mention of tophus (tophi) Stage 3b chronic kidney disease (HCC) Incidental lung nodule, > 3mm and < 8mm Solitary pulmonary nodule History of placement of stent in LAD coronary artery Postsurgical percutaneous transluminal coronary angioplasty status Chest pressure Other chest pain History of colon polyps Personal history of [...] the patient have Health Care Power of Terminal Block Assembler? No Care Teams Pipeline Systems Operator Relationship Specialty Start Date End Date Melissa Srinivasan MD [address] [facility] [place] [address] PCP - General Internal Medicine 12/29/21 documented as of this encounter
--- OUTSIDE RECORDS SUMMARY | 2023-09-05 10:25 | External Medical Summary | Summary of Care ---
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 May repeat 3 times. If chest pain continues, call 911 25 Tab 1 03/20/2018 Active Ketoconazole 2 % [...] 11/28/2022 Active Additional Information Patient taking differently:2 Sunburst Each NostrilPRN, Rhinitis, Reported on 02/15/2023 B-12 [...] respiratory tract infection, unspecified type Administer 1 Sunburst into nostril in the morning and 1 Sunburst before bedtime. 30 mL 12 08/24/2023 Active Ventolin HFA 108 (90 Base) MCG/ACT Inhalation Aerosol SolutionIndications :Acute bronchitis due to COVID-19 virus Inhale 2 Puffs by mouth 4 times a day as needed for Wheezing. Or coughing spells 18 g 1 08/25/2023 Active documented as of this encounter (statuses as of 08/31/2023) Active Problems Problem Noted Date Diagnosed Date [...] as of this encounter (statuses as of 08/31/2023) Resolved Problems Problem Noted Date Diagnosed Date [...] pain. Epididymitis 01/06/2015 03/15/2017 Overview: Right side. VT, old 04/08/2014 08/11/2014 Hypercholesteremia 02/05/2014 7 Diverticulitis [...] as of this encounter (statuses as of 08/31/2023) Immunizations Name Administration Dates Next Due COVID-19 mRNA, LNP-s, No Pre serve, 2-Dose Series ([facility]) 06/21/2021,11/26/2020,11/04/2020 Pneumococcal Conjugate Vacc, 13 Valent (Prevnar) [...] on file documented as of this encounter Plan of Treatment Upcoming Encounters Date Type Department Care Team (Latest Contact Info) Description 11/20/2023 2:30 PM EDT Hospital Encounter ENDO OSSC, Endoscopy Room [facility] [address] [phone] Fauzia Trammell MD [address] [address] 11/20/2023 2:30 PM EDT - 11/20/2023 3:00 PM EDT Surgery ENDO OSSC, Endoscopy Room [facility] [address] [phone] Fauzia Trammell MD [address] [address] COLONOSCOPY FLEXIBLE PROXIMAL DIAGNOSTIC 12/25/2023 1:40 PM EDT Office Visit Nephrology, [facility] [address] [place] [address] Jacques Srinivasan MD [address] [facility] [place] [address] 02/27/2024 10:15 AM EDT Office Visit Urology, [facility] [address] [address] Eladio Vidal MD [address] [facility] [address] [address] 05/14/2024 10:20 AM EDT Office Visit Rheumatology [place] [phone] [facility] [address] [address] Saji Mcghee MD [address] [place] [place] [id number] Pending Results Name Type Priority Associated Diagnoses Date /Time COMPREHENSIVE METABOLIC PANEL Lab Routine 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) Dyslipidemia, goal LDL below 70 08/31/2023 9:49 AM EST LIPID PANEL WITH DIRECT LDL IF TG IS HIGH Lab Routine Dyslipidemia, goal LDL below 70 08/31/2023 9:49 AM EST CBC Lab Routine 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) 08/31/2023 9:49 AM EST PHOSPHORUS Lab Routine 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) Hypophosphatemia 08/31/2023 9:49 AM EST 25-HYDROXY VITAMIN D Lab Routine 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) Hypophosphatemia 08/31/2023 9:49 AM EST HEMOGLOBIN A1C Lab Routine Impaired fasting glucose 08/31/2023 9:49 AM EST Scheduled Procedures Name Priority Associated Diagnoses Date/Ti me COLONOSCOPY FLEXIBLE PROXIMAL DIAGNOSTIC Recall History of colon polyps 11/20/2023 2:30 PM EDT Health Maintenance Due Date Last Done Comments Zoster Vaccines (1 of 2) 1990 COVID-19 Vaccine ( season) 2023 06/21/2021, 11/26/2020, 11/04/2020 COLONOSCOPY-EVERY 3 YRS AGES 18-100 04/28/2023 04/28/2020, 04/28/2020, 04/25/2017, Additional history exists GFR 11/28/2023 05/29/2023, 0701/2023, 11/28/2022, Additional history exists Albumin/Creatinine Ratio 11/29/2023 023, 01/18/2013, 02/27/2012 Depression Screening 11/29/2023 11/28/2022 CKD HGB USE SMARTSET 22084 05/29/202405/29, 04/03/2023, 04/03/2023, Additional history exists CKD PHOS USE SMARTSET 24654 05/29/202405/14, 05/16/2022, 09/20/2021, Additional history exists DTaP,Tdap,and [...] this encounter Medical Devices Implanted Type Area Weight And Balance Control Agent Device Identifier Shelf Expiration Date Model / Serial / Lot Mesh Prolite Nohole 2.5x5.5in - [id number] Implanted:Qty: 1 on 02/03/2015 by Millie Robin MD at [place] [facility] [place] [facility] [employer] 07/13/2016 [id number] / / [id number] Description:2.5 in x 5.5 in (6.4 cm x 14 cm) mesh prolite, no hole documented as of this encounter Visit Diagnoses Diagnosis 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 Question Answer Comments Discussion of Advance Directives occurred with: Patient Does the patient have a Living Will? No Does the patient have Health Care Power of Vegetable Loader Machine Operator? No Care Teams Machine Ironer Relationship Specialty Start Date End Date Melissa Srinivasan MD [address] [facility] [place] [address] PCP - General Internal Medicine 12/29/21 documented as of this encounter
--- OUTSIDE RECORDS SUMMARY | 2023-09-05 10:25 | External Medical Summary ---
Author Name Unknown Address Unknown Organization [id number]:LABORATORY [facility] [place] [facility] [address] [facility] [place] [address] Laboratory Report Ordering Provider Test Date Status MANDI ELIZABETH 08/31/2023 09:49:33 Final Observation Date Value Abnormality Reference (Units ) Status BUN 08/31/2023 09:49:33 30 Above high normal 6-20 (mg/dL) Final Creatinine 08/31/2023 09:49:33 1.7 Above high normal 0.6-1.2 (mg/dL) Final Glomerular filtration rate/1.73 sq M.predicted [Volume Rate/Area] in Serum, Plasma or Blood by Creatinine-based formula (CKD-EPI) 08/31/2023 09:49:33 40 Below low normal >=60 (mL/min) Final eGFR is calculated based on the CKD-EPI 2020 equation SODIUM 08/31/2023 09:49:33 141 135-146 (m mol/L) Final Potassium 08/31/2023 09:49:33 4.1 3.5-5.1 (m mol/L) Final Cl 08/31/2023 09:49:33 105 98-107 (mm ol/L) Final CO2 08/31/2023 09:49:33 26 22-32 (mmo l/L) Final Anion gap 08/31/2023 09:49:33 10 7-15 (mmol /L) Final Glucose 08/31/2023 09:49:33 80 70-120 (mg /dL) Final Albumin 08/31/2023 09:49:33 3.9 3.8-5.0 (g /dL) Final AST (Aspartate aminotransferase) 08/31/2023 09:49:33 22 10-50 (U/L) Fin al Alk Phos 08/31/2023 09:49:33 56 35-130 (U/ L) Final Bilirubin, Total 08/31/2023 09:49:33 0.5 <=1 .2 (mg/dL) Final Calcium 08/31/2023 09:49:33 9.4 8.4-10.2 ( mg/dL) Final Protein 08/31/2023 09:49:33 5.9 Below low normal 6.0 -8.3 (g/dL) Final ALT (Alanine aminotransferase) 08/31/2023 09:49:33 29 10-50 (U/L) Charlie stout Performing Location LABORATORY [facility] - [address] [facility] [address]
--- OUTSIDE RECORDS SUMMARY | 2023-09-05 10:25 | External Medical Summary ---
Author Name Unknown Address Unknown Organization [id number]:LABORATORY [facility] - [address] [place] [address] Laboratory Report Ordering Provider Test Date Status MANDI ELIZABETH 08/31/2023 09:49:33 Final Observation Date Value Abnormality Reference (Units ) Status Phosphate 08/31/2023 09:49:33 3.1 2.5-4.8 (m g/dL) Final Performing Location LAB[facility]ATORY [facility] - [address] [place] [address]
--- OUTSIDE RECORDS SUMMARY | 2023-09-05 10:25 | External Medical Summary ---
Author Name Unknown Address Unknown Organization K01:LAB[facility]ATORY [facility] - [address] [place] [address] Laboratory Report Ordering Provider Test Date Status MANDI ELIZABETH 08/31/2023 09:49:33 Final Deficient: <20 ng/mL
Ins ufficient: 20-29 ng/mL
Recommended/Optimum:30-50 ng/mL

Vitamin D intoxication is rare. If suspicious of Vitamin D toxicity, evaluation of serum Calcium and PTH is recommended. Observation Date Value Abnormality Reference (Units ) Status 25-OH Vitamin D total 08/31/2023 09:49:33 30 >19 (ng/mL) Final Performing Location LAB[facility]ATORY [facility] - [address] [place] [address]
--- OUTSIDE RECORDS SUMMARY | 2023-09-05 10:25 | External Medical Summary ---
Author Name Unknown Address Unknown Organization [id number]:[facility] [place] [address] [facility] [address] Laboratory Report Ordering Provider Test Date Status MANDI ELIZABETH 08/24/2023 16:53:21 Final Observation Date Value Abnormality Reference (Units ) Status Adenovirus DNA [Presence] in Nasopharynx by SHEREE with non-probe detection 08/24/2023 16:53:21 Negative Negative Final Human coronavirus 229E RNA [Presence] in Nasopharynx by SHEREE with non-probe detection 08/24/2023 16:53:21 Negative Negative Final Human coronavirus HKU1 RNA [Presence] in Nasopharynx by SHEREE with non-probe detection 08/24/2023 16:53:21 Negative Negative Final Human coronavirus NL63 RNA [Presence] in Nasopharynx by SHEREE with non-probe detection 08/24/2023 16:53:21 Negative Negative Final Human coronavirus OC43 RNA [Presence] in Nasopharynx by SHEREE with non-probe detection 08/24/2023 16:53:21 Positive Abnormal Negative Final Coronavirus OC43 detected by PCR (amplified probe). SARS-CoV-2 (COVID-19) RNA [P resence] in Nasopharynx by SHEREE with non-probe detection 08/24/2023 16:53:21 Negative Negative Final Human metapneumovirus RNA [P resence] in Nasopharynx by SHEREE with non-probe detection 08/24/2023 16:53:21 Negative Negative Final Rhinovirus+Enterovirus RNA [ Presence] in Nasopharynx by SHEREE with non-probe detection 08/24/2023 16:53:21 Negative Negative Final Influenza virus A RNA [Prese nce] in Nasopharynx by SHEREE with non-probe detection 08/24/2023 16:53:21 Negative Negative Final Influenza virus B RNA [Prese nce] in Nasopharynx by SHEREE with non-probe detection 08/24/2023 16:53:21 Negative Negative Final Parainfluenza virus 1 RNA [P resence] in Nasopharynx by SHEREE with non-probe detection 08/24/2023 16:53:21 Negative Negative Final Parainfluenza virus 2 RNA [P resence] in Nasopharynx by SHEREE with non-probe detection 08/24/2023 16:53:21 Negative Negative Final Parainfluenza virus 3 RNA [P resence] in Nasopharynx by SHEREE with non-probe detection 08/24/2023 16:53:21 Negative Negative Final Parainfluenza virus 4 RNA [P resence] in Nasopharynx by SHEREE with non-probe detection 08/24/2023 16:53:21 Negative Negative Final Respiratory syncytial virus RNA [Presence] in Nasopharynx by SHEREE with non-probe detection 08/24/2023 16:53:21 Negative Negative F inal Bordetella pertussis.pertuss is toxin promoter region [Presence] in Nasopharynx by SHEREE with non-probe detection 08/24/2023 16:53:21 Negative Negative Final Chlamydophila pneumoniae DNA [Presence] in Nasopharynx by SHEREE with non-probe detection 08/24/2023 16:53:21 Negative Negative Final Mycoplasma pneumoniae DNA [P resence] in Nasopharynx by SHEREE with non-probe detection 08/24/2023 16:53:21 Negative Negative Final Bordetella parapertussis IS1 001 DNA [Presence] in Nasopharynx by SHEREE with non-probe detection 08/24/2023 16:53:21 Negative Negative F inal
The primers that detect Rhinovirus may cross react with some Enterorviruses. The validation of bronchial specimens, tracheal aspirates, and throats for this assay was developed and performance characteristics determined by [employer]. The validation of alternate specimen types has not been cleared or approved by the U.S. Food and Drug Administration (FDA). It has been determined that such clearance or approval is not necessary. Performing Location [facility] [place] [facility] [address] [facility] [address]
--- OUTSIDE RECORDS SUMMARY | 2023-09-05 10:25 | External Medical Summary ---
Author Name Unknown Address Unknown Organization K01:LABORATORY [facility] [place] - [address] [place] [address] Laboratory Report Ordering Provider Test Date Status MANDI ELIZABETH 08/31/2023 09:49:33 Final Observation Date Value Abnormality Reference (Units ) Status HbA1C 08/31/2023 09:49:33 5.8 Above high normal 4. 0-5.6 (%) Final The use of HbA1c to monitor glycemic status is based on normal hemoglobin and HbA composition. This test should not be used in patients with abnormal hemoglobin that affects the half life of the red blood cell or the in vivo glycation rates. Glucose, estimated average 08/31/2023 09:49:33 120 <126 (mg/dL) Final Performing Location LABORATORY [facility] - [address] [place] [address]
--- OUTSIDE RECORDS SUMMARY | 2023-09-05 10:25 | External Medical Summary ---
Author Name Unknown Address Unknown Organization K01:[facility] [place] [facility] [place] [facility] [address] [facility] [place] [address] Laboratory Report Ordering Provider Test Date Status VARGHESE ELIZABETHALI 08/31/2023 09:49:33 Final Observation Date Value Abnormality Reference (Units ) Status Triglyceride 08/31/2023 09:49:33 131 <=174 ( mg/dL) Final Triglyceride Reference Range s (mg/dL):
<150 Acceptable
150-174 Borderline high
175-499 High
>=500 Very high Cholesterol 08/31/2023 09:49:33 116 <200 (mg /dL) Final Total Cholesterol Reference Ranges (mg/dL):
<200 Desirable
200-239 Borderline high
>=240 High HDL 08/31/2023 09:49:33 54 >39 (mg/dL ) Final HDL Cholesterol Reference Ra nges (mg/dL):
>=60 High (Desirable)
<50 Low (Undesirable) For Females
<40 Low (Undesirable) For Males NON-HDL CHOLESTEROL 08/31/2023 09:49:33 62 <=159 (mg/dL) Final Non-HDL Cholesterol Referenc e Range (mg/dL):
<100 Target level for high risk ASCVD patient
<130 Optimal for general population
130-159 Near optimal for general population
160-189 Borderline High
190-219 High
>=220 Very High LDL, (calculated) 08/31/2023 09:49:33 36 <= 129 (mg/dL) Final LDL Cholesterol Reference Ra nges (mg/dL):
<70 Target level for high risk ASCVD patient
<100 Optimal for general population
100-129 Near optimal for general population
130-159 Borderline high
160-189 High
>=190 Very high Performing Location LAB[facility]AT[facility] [place] [address] [facility] [address]
--- OUTSIDE RECORDS SUMMARY | 2023-09-05 10:25 | External Medical Summary ---
Author Name Unknown Address Unknown Organization K01:LABORATORY [facility] [place] - [address] [place] [address] Laboratory Report Ordering Provider Test Date Status MANDI ELIZABETH 08/31/2023 09:49:33 Final Observation Date Value Abnormality Reference (Units ) Status WBC, Total 08/31/2023 09:49:33 7.42 4.00-10.80 (K/uL) Final RBC 08/31/2023 09:49:33 3.95 4.50-5.25 (M/uL) Final Hemoglobin 08/31/2023 09:49:33 12.0 Below low normal 14.0-16.8 (g/dL) Final HCT 08/31/2023 09:49:33 38.1 Below low normal 40.0-48.4 (%) Final MCV 08/31/2023 09:49:33 96.5 82.0-99.5 (fL) Final MCH 08/31/2023 09:49:33 30.4 27.0-34.0 (pg) Final MCHC 08/31/2023 09:49:33 31.5 32.0-36.0 (g/dL) Final RDW 08/31/2023 09:49:33 14.3 11.5-15.5 (%) Final Platelets 08/31/2023 09:49:33 271 140-400 (K/uL) Final MPV 08/31/2023 09:49:33 10.6 6.6-11.1 (fL) Final Nucleated erythrocytes/100 leukocytes [Ratio] in Blood by Automated count 08/31/2023 09:49:33 0 <=0 (/100 WBCs) Final Performing Location LABORATORY [facility] - [address] [place] [address]
--- OUTSIDE RECORDS SUMMARY | 2023-09-05 10:25 | External Medical Summary | Summary of Care ---
Author Name Unknown Organization [facility] Address [address] [place] [address] Phone [phone] Care Team Providers Care Chute Boss Name Role Phone Melissa Srinivasan MD Primary Care Provider [phone] Reason for Visit * Reason Comments eRx-Medication Refill Encounter Details Date Type Department Care Team (Late st Contact Info) Description 08/15/2023 Refill Gastroenterology, [facility] [address] [place] [address] Melissa Srinivasan MD [address] [place] [address] GERD (gastroesophageal reflux disease) Allergies Active Allergy Reactions Criticality Noted Date [...] as of this encounter (statuses as of 08/18/2023) Medications Medication Sig Dispensed Refills Start Date End Date Status ASPIRIN 81 MG PO TABS 1 TABLET DAILY 0 04/08/2014 Active nitroglycerin (NITROSTAT) 0.4 MG SUBLIndications:C oronary artery disease involving [place] coronary artery of [place] heart without angina pectoris One tablet under tongue if needed for chest pain. May repeat 3 times. If chest pain continues, call [phone] Tab 1 03/20/2018 Active Ketoconazole 2 % External ShampooIndication s:Seborrheic dermatitis of scalp Shampoo twice a week for 4 weeks 120 mL 1 05/11/2020 Active Diclofenac Sodium 1 % External Gel (Voltaren)Indicat ions:Pain in joint of left shoulder,Pain of left upper arm Apply topically to affected area 2 g 2 times a day as needed for Pain. Apply to left shouder and arm 150 g 5 05/30/2022 Active Febuxostat 80 MG Oral Tablet (Uloric) Take 1 Tablet by mouth in the morning. 30 Tablet 11 10/06/2022 Active Fluticasone Propionate 50 MCG/ACT Nasal Suspension (Flonase)Indicati ons:Chronic pansinusitis Administer 2 Sprays into each nostril in the morning. 16 g 2 11/28/2022 Active Additional Information Patient taking differently:2 [place] Each NostrilPRN, Rhinitis, Reported on 02/15/2023 B-12 1000 MCG Oral LozengeIndication s:B12 deficiency Take 1 daily 0 02/21/2023 Active Tamsulosin HCl 0.4 MG Oral Capsule (Flomax)Indicatio ns:BPH with obstruction/lower urinary tract symptoms Take 1 Capsule by mouth in the morning. 90 Capsule 3 02/22/2023 Active Finasteride 5 MG Oral Tablet (Proscar) Take 1 Tablet by mouth in the morning. 90 Tablet 3 02/22/2023 Active Atorvastatin Calcium 40 MG Oral Tablet (Lipitor)Indicati ons:Hypercholeste remia Take 1 Tablet by mouth in the [...] Sodium 40 MG Oral Tablet Delayed Release (Protonix)Indicat ions:GERD (gastroesophageal reflux disease) Take 1 tablet by mouth once daily 90 Tablet 0 08/18/2023 Active Pantoprazole Sodium 40 MG Oral Tablet Delayed Release (Protonix)Indicat ions:GERD (gastroesophageal reflux disease) Take 1 tablet by mouth once daily 90 Tablet 3 07/29/2022 08/18/19 24 Discontinued documented as of this encounter (statuses as of 08/18/2023) Active Problems Problem Noted Date Diagnosed Date Benign hypertension with stage 3b chronic kidney disease 12/22/2020 Overview: Per CKD protocol Stage 3b chronic kidney disease 09/22/2020 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 Epididymitis 01/06/2015 03/15/2017 Overview: Right side. [place], old 04/08/2014 08/11/2014 Hypercholesteremia 02/05/2014 7 Diverticulitis [...] as of this encounter (statuses as of 08/18/2023) Immunizations Name Administration Dates Next Due COVID-19 mRNA, LNP-s, No Pre serve, 2-Dose Series (Pfizer) 06/21/2021,11/26/2020,11/04/2020 Pneumococcal Conjugate Vacc, 13 Valent (Prevnar) [...] encounter Miscellaneous Notes * Telephone Encounter - Jennifer Simmons LPN - 08/18/2023 2:08 PM ESTPending Prescriptions: Disp Refills Pantoprazole Sodium 40 MG Oral Tablet Jacqui*90 Tab*0 Sig: Take 1 tablet by mouth once daily * Telephone Encounter - Alyssia English CPhT - 08/17/2023 12:26 PM ESTPending Prescriptions: Disp Refills Pantoprazole Sodium 40 MG Oral Tablet Jacqui*90 Tab*0 Sig: Take 1 tablet by mouth once daily * Telephone Encounter - Alyssia English CPhT - 08/17/2023 12:19 PM EST Did you pend patient's preferred pharmacy and medication before forwarding?yes Pharmacy: [facility] [address] [address] Pending Prescriptions: Disp Refills Pantoprazole Sodium 40 MG Oral Tablet Del*90 Tab*0 Sig: Take 1 tablet by mouth once daily Last Visit: 09/25/2020 (in office), Visit date not found (telemedicine)ENDO 11.20.2023 Next Visit: Visit date not found If no future appointments scheduled, and last appointment is greater than a year ago, please schedule patient for a follow-up appointment Last date the medication was ordered: 07.29.22 Is this request for a controlled substance?No Urine Drug Screen:No results found. However, due to the size of the patient record, not all encounters were searched. Please check Results Review for a complete set of results. Patient Phone Numbers Labs: Lab Results Component Value Date/Time CREAT 2.1 (H) 05/29/2023 08:44 AM CREAT 1.9 (H) 03/19/2020 11:10 AM POTASSIUM 4.0 05/29/2023 08:44 AM POTASSIUM 4.4 03/19/2020 11:10 AM TSH 0.74 03/23/2021 09:58 AM TSH 0.51 09/15/2016 10:57 AM LDLCALC 47 05/29/2023 08:44 AM LDLCALC UNINTERPRETABLE RESULT 03/22/2019 10:40 AM LDLDIRECT 65 11/28/2022 10:57 AM LDLDIRECT 60 03/19/2020 11:10 AM LDLDIRECT 74 12/15/2015 08:47 AM ALT 17 02/16/2023 12:17 PM ALT 17 03/19/2020 11:10 AM HGBA1C 5.8 (H) 05/29/2023 08:44 AM HGBA1C 6.1 07/21/2010 01:36 PM documented in this encounter Plan of Treatment Upcoming Encounters Date Type Department Care Team (Latest Contact Info) Description 08/31/2023 10:00 AM EST Laboratory Laboratory, [place] [address] [facility] [facility] [id number] [place], Laboratory [address] [place] [address] 11/20/2023 2:30 PM EDT Hospital Encounter ENDO [facility], Endoscopy Room [facility] [address] [place] [phone] Fauzia Trammell MD [address] [place] [address] 11/20/2023 2:30 PM EDT - 11/20/2023 3:00 PM EDT Surgery [facility] [address] [facility] [address] Fauzia Trammell MD [address] [place] [address] COLONOSCOPY FLEXIBLE PROXIMAL DIAGNOSTIC 12/25/2023 1:40 PM EDT Office Visit Nephrology, [facility] [address] [facility] [place] [address] Jacques Srinivasan MD [address] [facility] [place] [address] 02/27/2024 10:15 AM EDT Office Visit Urology, [facility] [address] [facility] [place] [address] Eladio Vidal MD [address] [place], [place] [id number] 05/14/2024 10:20 AM EDT Office Visit Rheumatology [facility] [place] [address] [facility] [place], [place] [address] Saji Mcghee MD [address] [facility] [place], [place] [address] Scheduled Procedures Name Priority Associated Diagnoses Date/Ti [...] Screening 11/29/2023 11/28/2022 CKD HGB USE SMARTSET 41225 05/29/202405/29, 04/03/2023, 04/03/2023, Additional history exists CKD PHOS USE SMARTSET 46897 05/29/202405/14, 05/16/2022, 09/20/2021, Additional history exists DTaP,Tdap,and [...] this encounter Medical Devices Implanted Type Area Concession Worker Device Identifier Shelf Expiration Date Model / Serial / Lot Mesh Prolite Nohole 2.5x5.5in - [id number] Implanted:Qty: 1 on 02/03/2015 by Millie Robin MD at OR [facility] Left: Groin [employer] 07/13/2016 [id number] / / [id number] Description:2.5 in x 5.5 in (6.4 cm x 14 cm) mesh prolite, no hole documented as of this encounter Visit Diagnoses Diagnosis GERD (gastroesophageal reflux disease) Esophageal reflux History of colon polyps Personal history of [...] the patient have Health Care Power of Satellite Installer? No Care Teams Chute Boss Relationship Specialty Start Date End Date Melissa Srinivasan MD [address] [place] [address] PCP - General Internal Medicine 12/29/21 documented as of this encounter
[2023-09-05] MEDS ORDERED: ORTHO JOINT ANESTHETIC ONE (10:59)
--- NOTE | 2023-09-05 11:06 | History & Physical Bridge Note ---
Date of Service September 05, 2023 History & Physical Bridge Note I have examined the patient, reviewed the History & Physical and in the interval since the performance of the History & Physical I have noted the following changes of clinical significance: no changes noted
[2023-09-05] MEDS ORDERED: ePHEDrine sulfate 50 MG/5 ML SYR ONE ×2 (12:01→13:43)
[2023-09-05] MEDS ORDERED: ONDANSETRON INJ 2 MG/ML 2 ML VIAL ONE (12:27)
[2023-09-05] MEDS ORDERED: DEXAMETHASONE SOD INJ 4 MG/ML VIAL ONE (12:28)
[2023-09-05] MEDS ORDERED: SUGAMMADEX SODIUM 200 MG/2 ML VIAL IV ONE (12:30)
--- NOTE | 2023-09-05 12:49 | Operative Report ---
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 Post-Op Diagnosis: Cuff tear arthropathy of the left shoulder I identified the patient and participated in the time-out.: Yes Procedure Operation Date: 09/05/23 10:35 Actual Procedures p Left Reverse Total Shoulder Arthroplasty(Left) - Saji Tobar DO Surgeon Saji Tobar DO Maintenance Mechanic Elevators None Estimated Blood Loss 150 Findings Consistent with Post-Op Diagnosis Specimens Left humeral head Description of Procedure Implants used: I used a [employer]omet Comprehensive reverse total shoulder arthroplasty system with a size 9 press fit micro humeral stem, a +3 offset humeral tray and a +3 retentive humeral bearing, a 25 mm medium augment baseplate with a 6.5 mm central screw and superior and inferior locking screws, and a size 40 mm eccentric glenosphere. Henrry arrived at [facility] for the above procedure. He was seen in the preoperative holding area and the operative extremity was identified and signed. He was given a preoperative antibiotic, TXA, and an interscalene nerve block. He was taken back to the operating room, laid on table in supine position, and put under general anesthesia. He was then put into the beachchair position. The shoulder was then prepped and draped in sterile fashion. A timeout was done and the patient and the operative extremity was properly identified. A deltopectoral approach was used. Dissection was taken down through the fascia and the deltoid was retracted laterally and the conjoined tendon was retracted medially. The anterior shoulder was exposed. The biceps tendon was chronically torn. The subscapularis was then directly released off the lesser tuberosity with a peel technique. The inferior capsule was released and the humeral head was dislocated. A canal finding reamer was sent down the center of the humeral canal. Sequential reaming up to a size 9 reamer was done. Off that reamer, a proximal humeral resection guide was placed. The proximal humerus was resected at 135 of inclination and 25 of retroversion. Osteophytes were then removed and the glenoid was exposed. Time was spent doing a complete capsular and labral release. The glenoid guide was then placed in the inferior aspect of the glenoid. A 3.2 mm Steinmann pin was then placed into the glenoid vault at 10 of inclination. The glenoid baseplate was then reamed. The final size 25 mm medium augment baseplate was then impacted in the place. A 6.5 mm central screw was then placed followed by superior and inferior locking screws. A 40 mm eccentric glenosphere was then impacted into place. Surrounding soft tissues were then injected with 100 cc an orthopedic pain control cocktail. The proximal humerus was then exposed. Sequential broaching of the humerus up to a size 9 broach was done. Off that broach a +3 offset and +3 retentive humeral tray was trialed. The shoulder was then reduced, brought through a full range of motion, and felt to be stable. The shoulder was then dislocated and the broach was removed. The final size 9 micro press-fit humeral stem was then impacted into place. A +3 retentive humeral bearing was then snapped onto a +3 offset humeral tray. The humeral tray was then impacted onto the humeral stem. The shoulder was once again reduced, brought through a full range of motion, and felt to be stable. The subscapularis was poor quality and retracted and unable to be repaired. A dilute betadyne lavage was then done for 3 minutes. The joint was then irrigated with normal saline solution. Hemostasis was obtained. The interval was closed with 2-0 Vicryl suture. The skin was then closed with 2-0 Vicryl and deborah. A Silverlon dressing was placed and the arm was rested in a regular arm sling. He was then extubated and transferred to a hospital bed. He taken to the postanesthesia care unit in stable condition. He tolerated the procedure well. I attest to the content of the Intraoperative Record and any orders documented therein. Any exceptions are noted below.
--- NOTE | 2023-09-05 13:19 | XRay Report ---
XR shoulder LT min 2V routine CLINICAL HISTORY: Post shoulder surgery COMPARISON: Left shoulder radiograph March 27, 2023. FINDINGS: Alignment of the reverse total left shoulder arthroplasty is anatomic. There is no peripro sthetic fracture or unexpected radiopaque foreign body. There are skin deborah. IMPRESSION: Expected findings following reverse total left shoulder arthroplasty. ACT 112: Negative or not required by law. Electronically signed by: Mert Salgdao M.D. 09/05/2023 1:17 PM
[2023-09-05] MEDS ORDERED: SODIUM CHLORIDE 0.9% 1,000 ML IV SCH (13:44)
[2023-09-05] MEDS ORDERED: bisacodyL 10 MG SUPP PR PRN (13:44)
[2023-09-05] MEDS ORDERED: MAGNESIUM HYDROXIDE SUSP 30 ML UDC PO PRN (13:44)
[2023-09-05] MEDS ORDERED: METOCLOPRAMIDE HCL INJ 5 MG/ML 2 ML VIAL IV PRN (13:44)
[2023-09-05] MEDS ORDERED: HYDROmorphone INJ 0.5 MG/0.5 ML SYR IV PRN (13:44)
[2023-09-05] MEDS ORDERED: NALOXONE HCL 0.4 MG/1 ML VIAL/CARP IV PRN (13:44)
[2023-09-05] MEDS ORDERED: oxyCODONE HCL IR 5 MG TAB (IMMEDIATE RELEASE) PO PRN (13:44)
[2023-09-05] MEDS ORDERED: ONDANSETRON INJ 2 MG/ML 2 ML VIAL IV PRN (13:44)
[2023-09-05] MEDS ORDERED: traMADol HCL 50 MG TABLET PO PRN (13:44)
--- NOTE | 2023-09-05 14:20 | Anesthesiology Progress Note ---
Date of Service September 05, 2023 Anesthesia Post Procedure Vital Signs Vital Signs: Temp Pulse Pulse Resp BP Pulse Ox O2 Del Method 09/05/23 13:50 36.2 C L 87 16 148/78 H 93 Room Air 09/05/23 13:25 36.4 C L 87 15 131/72 95 Room Air 09/05/23 13:15 98 H 14 128/72 95 Room Air 09/05/23 13:05 104 H 14 119/73 94 Room Air 09/05/23 12:55 116 H 17 103/57 L 96 Oxymask 09/05/23 12:45 36.3 C L 111 H 13 100/59 L 97 Oxymask 09/05/23 09:13 36.7 C 94 H 18 140/96 98 Room Air O2 Flow Rate 09/05/23 13:50 09/05/23 13:25 09/05/23 13:15 09/05/23 13:05 09/05/23 12:55 11 09/05/23 12:45 11 09/05/23 09:13 Pain Intensity Left Shoulder: Pain Intensity: 0 Transfer of Care Handoff Completed per policy Notes Mental Status: alert / awake / arousable Patient Amnestic to Procedure: Yes Nausea / Vomiting: adequately controlled Pain: adequately controlled Airway Patency, RR, SpO2: stable & adequate BP & HR: stable & adequate Hydration State: stable & adequate Anesthetic Complications: no major complications apparent
[2023-09-05] MEDS: ACETAMINOPHEN 500 MG TAB PO SCH ×2 (14:56→21:21)
[2023-09-05] MEDS: hydrALAZINE TAB 50 MG TAB PO SCH ×2 (14:56→21:21)
[2023-09-05] MEDS: KETOROLAC TROMETHAMINE 15 MG/ML VIAL IV SCH ×2 (14:56→18:04)
[2023-09-05] MEDS: ceFAZolin 2000MG 2,000 MG/15 ML SYR IV SCH (18:44)
[2023-09-05] MEDS ORDERED: SENNA 8.6 MG TAB PO SCH (21:00)
[2023-09-05] MEDS: DOCUSATE SODIUM 100 MG CAP PO SCH (21:21)
[2023-09-06] MEDS: KETOROLAC TROMETHAMINE 15 MG/ML VIAL IV SCH ×2 (00:16→05:14)
[2023-09-06] MEDS: ceFAZolin 2000MG 2,000 MG/15 ML SYR IV SCH (03:16)
[2023-09-06] MEDS: ACETAMINOPHEN 500 MG TAB PO SCH (05:14)
[2023-09-06] MEDS: DOCUSATE SODIUM 100 MG CAP PO SCH (07:30)
[2023-09-06] MEDS: hydrALAZINE TAB 50 MG TAB PO SCH (07:30)
[2023-09-06] MEDS ORDERED: dexAMETHasone 4 MG TAB PO SCH (08:00)
[2023-09-06] MEDS ORDERED: TAMSULOSIN HCL 0.4 MG CAP PO SCH (09:00)
[2023-09-06] MEDS ORDERED: MULTIVITAMIN TAB PO SCH (09:00)
[2023-09-06] MEDS ORDERED: lisinopril 40 MG TAB PO SCH (09:00)
[2023-09-06] MEDS ORDERED: ATORVASTATIN 40 MG TAB PO SCH (09:00)
[2023-09-06] MEDS ORDERED: FINASTERIDE 5 MG TAB PO SCH (09:00)
[2023-09-06] MEDS ORDERED: PANTOprazole 40 MG TAB PO SCH (09:00)
--- NOTE | 2023-09-06 10:28 | Orthopedic Progress Note ---
Date of Service September 06, 2023 Assessment & Plan (1) Status post reverse total replacement of left shoulder: Overall, he is doing quite well today with good pain control. His block is still working for him at this time. He is aware that this should start wearing off within the next 24-48 hours. He will work with physical therapy today to work on range of motion exercises to the left upper extremity. He may be discharged later this morning pending physical therapy evaluation. He will follow-up with orthopedics in 2 weeks for postoperative care. Subjective . Rubi was seen and evaluated at bedside this morning resting comfortably in no apparent distress. He notes that his pain is well-controlled to the left upper extremity. He still says that his nerve block is still working at this time noting some numbness. He has been up and out of bed but no significant issues. He denies any other concerns today. Review of Systems All systems reviewed & are unremarkable except as noted in HPI & below. Physical Exam . On physical examination of the left upper extremity, dressing is clean, dry, intact. Upper extremity is immobilized the left arm. He does report some numbness into the first 3 digits. Does have slight active range to all 5 digits. +2 radial pulse. Less than 2-second capillary refill. Normal sensation otherwise what was stated. Neurovascular intact. Results & Data Results & Data Laboratory Results . Diagnostic Findings . Postoperative x-rays of the left shoulder show prosthesis to be in anatomical alignment with no signs of fracture complication or loosening. PG Care Time/CCT Total # of Minutes Spent Total Time Spent with Patient: Total time spent is greater than 50% in coordination of care (as documented) at patient's floor/unit and/or counseling patient: Coding Level of Care Code 18162 Post Operative Follow-Up Diagnoses Status post reverse total replacement of left shoulder Z96.612
--- NOTE | 2023-09-06 10:31 | Discharge Summary ---
Date of Service September 06, 2023 Admission HPI (Per Admitting) Henrry is a pleasant 82-year-old male who has been dealing with left shoulder pain since he fell and dislocated his shoulder back in January. He has been following up with Dr. Krishna. He has had an injection. He has had an MRI and x-rays. Unfortunately, he has a massive retracted rotator cuff tear. 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 After failing conservative treatment, he has elected proceed with a left reverse shoulder arthroplasty. Admission Exam (Per Admitting) On physical examination of the left shoulder, he has a pseudoparalysis and weakness throughout.. Principal Diagnosis Same as "Discharge Diagnosis" noted below under Discharge Instructions. Discharge Exam . On physical examination of the left upper extremity, dressing is clean, dry, intact. Upper extremity is immobilized the left arm. He does report some numbness into the first 3 digits. Does have slight active range to all 5 digits. +2 radial pulse. Less than 2-second capillary refill. Normal sensation otherwise what was stated. Neurovascular intact. Discharge Data Procedures Performed Operation Date: 09/05/23 10:35 Actual Procedures p Left Reverse Total Shoulder Arthroplasty(Left) - Saji Tobar DO Ordered Studies 09/05/23 05:00 US - OR guided needle placemen Routine Hospital Course (1) Status post reverse total replacement of left shoulder: On September 05, 2023 Rubi arrived at [facility] and underwent a left reverse total shoulder arthroplasty performed by Dr. Tobar with no complications. He had a general anesthetic. Postoperatively, he was transferred to the PACU for immediate postoperative care and then transferred to the general orthopedic floor in stable condition. His hospital course was uneventful. On postoperative day #1, his pain was well-controlled and his vital signs were stable. He worked well with physical therapy working on range of motion exercises. He was then discharged home in stable condition. He will follow-up with orthopedics in 2 weeks for postoperative care. PG Care Time/CCT Total # of Minutes Spent Total Time Spent with Patient: Total time spent is greater than 50% in coordination of care (as documented) at patient's floor/unit and/or counseling patient: Discharge Plan Discharge Items Patient Disposition: Home - Home Health Services Reason For Visit: Left Shoulder Degenerative Joint Disease Discharge Diagnosis: Same Activity: Per Instructions section Non-emergency contact: Surgeon Call non-emergency contact if: your temperature is above 101.5, your wound has increased redness and your wound has increased drainage Follow-up/Referrals: Melissa Srinivasan MD [Primary Care Provider] - Diet: Regular Addtl Attending Provider Instructions: Activity and Therapy Recommendations: * If you are using [facility] then therapy will be provided at your home until they feel you have accomplished all of your goals. * If you are using [facility] then Physical Therapy will be provided until they feel you are ready to start Outpatient Physical Therapy. * If you are not using home therapy then Outpatient Physical Therapy should start about 3-5 days from your day of surgery. Therapy will last about 8-12 weeks * Wear your sling for 3 weeks, unless otherwise instructed. You may remove your sling to shower and to dress, but otherwise, you should be in your sling at all times, including while sleeping * The shoulder replacement is very stable and you can use your hand while in the sling * You were shown a series of exercises in the hospital. Do these exercises daily including the exercises you were shown in physical therapy. Medications: * Narcotic You will likely be sent home from the hospital with a prescription for the narcotic pain medication that worked best throughout your stay. * Cefadroxi-take the antibiotic twice a day for 10 days to help with infection. * Other medications may be prescribed for specific circumstances. If you have any questions, please call the office at . * Resume previous home medications unless otherwise instructed Dressing Care: Leave the Silverlon dressing in place for 7 days. After 7 days you may remove the dressing. If the incision is not draining then you may leave the deborah open to air. If there is a little bit of drainage or if the deborah are getting stuck on your clothing then cover the incision with a dry dressing. The deborah will be removed at your 2 week follow-up appointment. Showering: You may shower with the Silverlon dressing in place. Do not let the shower spray hit the dressing directly. Pat the Silverlon dressing dry. If the dressing becomes wet underneath, then simply remove the dressing. Keep the incision dry until you are 7 days out from the day of surgery. After 7 days you may remove the Silverlon dressing and shower with the deborah exposed. Let soapy water run over the deborah and pat them dry. Do not scrub or soak the incision. Things To Watch For: * Drainage from the incision site that occurs more than one week after your surgery. * Increased redness at the incision site. * Fever above 102 degrees Fahrenheit. * Unusual chest pain or shortness of breath. * Call [facility] at with any of the above problems Follow-Up Visit: Follow-up with Dr. Tobar's PA (Saji Lord) 2-3 weeks after your day of surgery. He will remove your deborah and answer any questions. If you have any additional questions or concerns, Dr Tobar is usually in the office at the same time and will be available An appointment was probably scheduled when you signed-up for surgery in the office. If you have any questions call More detailed instructions as well as Frequently Asked Questions were provided in a folder by our office when you signed-up for surgery. Please review these instructions when you get home. If you have any further questions or concerns, please feel free to call the office at [phone] Pending Studies at Discharge: No Stand-Alone Forms: [facility], Smoking Cessation Medications and DC Order Prescriptions: New oxycodone 5 mg Tablet 5 mg PO Q6 PRN (Reason: pain) Qty: 30 0RF cefadroxil 500 mg capsule 500 mg PO BID 10 Days Qty: 20 0RF Continued atorvastatin 40 mg Tablet 40 mg PO QAM aspirin 81 mg Tablet,Delayed Release (Dr/Ec) 81 mg PO 3XWK Rx Instructions: MON, WED & FRI. tamsulosin 0.4 mg Capsule 0.4 mg PO QAM pantoprazole [Protonix] 40 mg Tablet,Delayed Release (Dr/Ec) 40 mg PO QAM nitroglycerin 0.4 mg Tablet, Sublingual 0.4 mg sublingual UD PRN (Reason: Chest Pain) hydralazine 50 mg Tablet 50 mg PO TID lisinopril 40 mg Tablet 40 mg PO QAM finasteride 5 mg Tablet 5 mg PO QAM febuxostat [Uloric] 80 mg Tablet 80 mg PO QAM albuterol sulfate 90 mcg/actuation HFA aerosol inhaler 2 puff INHALATION Q6H PRN (Reason: CONGESTION/COUGH/WHEEZING) diclofenac sodium 1 % Gel 4 g TOPICAL BID PRN (Reason: Pain) cyanocobalamin (vitamin B-12) [Vitamin B-12] 1,000 mcg Tablet 1,000 mcg PO QAM fluticasone propionate [Allergy Relief (fluticasone)] 50 mcg/actuation [place],Suspension 1 spray INTRANASAL BID Rx Instructions: administer into each nostril Discontinued oxycodone 5 mg tablet 5 mg PO Q6H PRN (Reason: pain) Qty: 10 0RF Rx Instructions: Initial Treatment Admission Data Admit Date/Time: 09/05/23 12:29 Attending Provider: Saji Tobar Admit Provider: Saji Tobar Primary Care Provider: Melissa Srinivasan Other Interventions: Discharge Summary Assessment (RN) Last Done: 09/06/23 09:32
== END 2023-09-06 12:33 | disposition home health service (06) ==
LOC: ASU 08:41 → 3E 08:41

== ENCOUNTER 2024-07-08 09:24 | Observation (INO) ==
--- NOTE | 2024-06-10 12:03 | PAT Medication Instructions ---
Medication Instructions Date of Service June 10, 2024 Home Medications aspirin 81 mg tablet,delayed release 81 mg PO UD atorvastatin 40 mg tablet 40 mg PO QAM febuxostat 80 mg tablet (Uloric) 80 mg PO QAM finasteride 5 mg tablet 5 mg PO QAM hydralazine 50 mg tablet 50 mg PO TID lisinopril 40 mg tablet 40 mg PO QAM nitroglycerin 0.4 mg sublingual tablet 0.4 mg sublingual UD PRN Chest Pain pantoprazole 40 mg tablet,delayed release (Protonix) 40 mg PO QAM tamsulosin 0.4 mg capsule 0.4 mg PO QAM albuterol sulfate 90 mcg/actuation aerosol inhaler 2 puff inhalation Q6H PRN CONGESTION/COUGH/WHEEZING diclofenac sodium 1 % topical gel 4 g topical BID PRN Pain cyanocobalamin (vitamin B-12) 1,000 mcg tablet (Vitamin B-12) 1,000 mcg PO QAM MEDICATION INSTRUCTIONS: Continue as directed nitroglycerin 0.4 mg sublingual tablet 0.4 mg sublingual UD PRN Chest Pain albuterol sulfate 90 mcg/actuation aerosol inhaler 2 puff inhalation Q6H PRN CONGESTION/COUGH/WHEEZING (use if needed; BRING TO HOSPITAL) diclofenac sodium 1 % topical gel 4 g topical BID PRN Pain (do not apply near surgical area after bathing prior to surgery) ASK your prescriber and surgeon aspirin 81 mg tablet,delayed release 81 mg PO UD DO NOT take the morning of surgery lisinopril 40 mg tablet 40 mg PO QAM cyanocobalamin (vitamin B-12) 1,000 mcg tablet (Vitamin B-12) 1,000 mcg PO QAM Take morning of surgery With a small sip of water, OTHERWISE NOTHING TO EAT OR DRINK AFTER MIDNIGHT: pantoprazole 40 mg tablet,delayed release (Protonix) 40 mg PO QAM atorvastatin 40 mg tablet 40 mg PO QAM finasteride 5 mg tablet 5 mg PO QAM hydralazine 50 mg tablet 50 mg PO TID tamsulosin 0.4 mg capsule 0.4 mg PO QAM febuxostat 80 mg tablet (Uloric) 80 mg PO QAM Take evening before surgery hydralazine 50 mg tablet 50 mg PO TID Other Notes If you have any questions please call us at [phone] or [phone] or [phone] or [phone]
--- NOTE | 2024-06-18 11:53 | Anesthesiology Consultation ---
Date of Service June 18, 2024 Assessment & Plan (1) Encounter for pre-operative examination: - Infectious disease screening: Per assessment on 06/18/24- No known recent infectious disease contacts or current infectious disease symptoms. - Outpatient joint assessment: Pt currently scheduled for inpatient pathway. If surgeon requests review for outpatient joint pathway, patient is not recommended candidate for outpatient joint program from anesthesia standpoint based on available information. - S/P Left reverse TSA (09/05/23): Grade view 1, MAC#3, ETT 7.5 + regional at [facility] - Cardiology visit (04/24/24): "Stable cardiac symptoms. BP fairly well- controlled. Intermittent edema noted. Use of furosemide 20 mg as needed encouraged. No anginal complaints.. CHF tools discussed.. Follow-up: Return in about 6 months" Chart Review Chart Review: Acceptable Risk for Surgery and Patient seen in Pre Admission Testing Teaching & Discussion Pre-Anesthesia Teaching/Discussion Notes: Instructed NPO after midnight before surgery,except medications with 15 cc of water. Medication instructions provided according to the PAT guidelines. History Surgery Operation Date: 07/08/24 10:15 Proposed Procedures p Right Total Shoulder Arthroplasty Reverse - Saji Tobar, Height/Weight Height: 5 ft 8 in Weight: 76 kg Allergies Allergy/AdvReac Type Severity Reaction Status Date / Time allopurinol Allergy Severe Facial/tongue Verified 06/10/24 10:56 swelling Sulfa (Sulfonamide Allergy Severe Face/lips/tongue Verified 06/18/24 10:41 Antibiotics) edema amoxicillin Allergy Intermediate Hives Verified 06/10/24 10:56 Calcium Channel Blocking Allergy Intermediate Hives Verified 06/10/24 10:56 Agents-Dih cantaloupe Allergy Intermediate Hives, rash Verified 06/18/24 10:41 ethacrynic acid Allergy Intermediate Rash Verified 06/10/24 10:56 Penicillins Allergy Intermediate Hives Verified 06/10/24 10:56 shellfish derived Allergy Intermediate Itchy hands Verified 06/18/24 10:41 vancomycin Allergy Intermediate Rash Verified 06/10/24 10:56 indapamide Allergy Unknown Unknown Verified 06/18/24 10:41 (per records) trichlormethiazide AdvReac Severe "Intolerance" Verified 06/10/24 10:[address] De León amlodipine AdvReac Intermediate "Intolerance" Verified 06/10/24 10:[address] [facility] [address] De León Beta-Blockers AdvReac Intermediate Bradycardia Verified 06/10/24 10:56 (Beta-Adrenergic Bloc ciprofloxacin [Cipro] AdvReac Intermediate Rash, Verified 06/18/24 10:41 shaking, dizziness divalproex sodium AdvReac Intermediate Diarrhea Verified 06/10/24 10:56 [[facility]] valproic acid AdvReac Intermediate Diarrhea Verified 06/10/24 10:56 Medications Home Medications Medication Instructions Recorded Confirmed Last Taken aspirin 81 mg tablet,delayed 81 mg PO UD 10/21/20 06/10/24 09/04/23 06:00 release atorvastatin 40 mg tablet 40 mg PO QAM 10/21/20 06/10/24 09/05/23 07:00 febuxostat 80 mg tablet (Uloric) 80 mg PO QAM 10/21/20 06/10/24 09/04/23 06:00 finasteride 5 mg tablet 5 mg PO QAM 10/21/20 06/10/24 09/05/23 07:00 hydralazine 50 mg tablet 50 mg PO TID 10/21/20 06/10/24 09/05/23 07:00 lisinopril 40 mg tablet 40 mg PO QAM 10/21/20 06/10/24 09/04/23 06:00 nitroglycerin 0.4 mg sublingual 0.4 mg sublingual UD PRN Chest Pain 10/21/20 06/10/24 Unknown tablet pantoprazole 40 mg tablet,delayed 40 mg PO QAM 10/21/20 06/10/24 09/05/23 07:00 release (Protonix) tamsulosin 0.4 mg capsule 0.4 mg PO QAM 10/21/20 06/10/24 09/05/23 07:00 albuterol sulfate 90 mcg/actuation 2 puff inhalation Q6H PRN 02/06/23 06/10/24 Unknown aerosol inhaler CONGESTION/COUGH/WHEEZING diclofenac sodium 1 % topical gel 4 g topical BID PRN Pain 02/06/23 06/10/24 Unknown cyanocobalamin (vitamin B-12) 1,000 mcg PO QAM 08/02/23 06/10/24 09/04/23 06:00 1,000 mcg tablet (Vitamin B-12) Past Medical History Medical History (Updated 06/18/24 @ 13:48 by Saba Arce) BPH (benign prostatic hyperplasia) CAD (coronary artery disease) Stent (BMS) x1 to RCA (2013) Follows with Dr. Willett Chronic anemia CKD (chronic kidney disease) stage 3, GFR 30-59 ml/min Follows with [facility] nephro 04/2024 creatinine 2.0- "stable" per nephro review Diverticular disease of colon GERD (gastroesophageal reflux disease) Hearing loss History of osteoarthritis Hx of diverticulitis of colon Hx of gout Hyperlipidemia Hypertension Lung nodules Myocardial infarction 2013 > stent x1 Pancreatic cyst Peripheral neuropathy Raynauds syndrome Renal cyst Thyroid nodule Exercise / Class Metabolic Activity II 4-5 Yardwork/Stairs/Walk up hill (one FS: No CP, no SOB) Past Family History Family History Other No family history of adverse response to anesthesia Past Surgical History Surgical History History of anesthesia reaction Difficulty urinating after hernia surgery 2020- had to have a catheter placed for 10 days History of cataract surgery R/L History of cholecystectomy History of colonoscopy History of esophagogastroduodenoscopy (EGD) History of heart artery stent 2013 > stent x1 History of herniorrhaphy x4 Most recent 2020, [facility] History of tonsillectomy and adenoidectomy History of tooth extraction Status post reverse total replacement of left shoulder Left reverse TSA: Grade view 1, MAC#3, ETT 7.5 + regional at [facility] (09/05/23) Past Anesthesia History No Family Hx of Anesthesia Complications and Other (Difficulty urinating after hernia surgery 2020- had to have a catheter placed for 10 days) History of PONV No Hx of PONV and No Hx of Motion Sickness Social History Smoking Status: Former smoker tobacco type: cigarettes Do You Dip or Chew Tobacco: No Smoking End Date: Quit age 36 Hx Alcohol Use: Yes Alcohol type: hard liquor alcohol intake frequency: holidays/special occasions only Hx Substance Use: No substance use type: does not use Review of Systems Patient denies chest pain, shortness of breath, dyspnea on exertion, fever, chills, cough, wheezing, palpitations. Physical Exam Vital Signs BP 122/82 P 73 TEMP 97.9 SP02 98%RA RESP 16 Physical Mildly decreased cervical extension range of motion. Full TMJ range of motion. TMD > 3.5 finger breaths Mallampati Score III Dentition: upper/lower dentures Lungs: clear throughout to auscultation Cardiac: regular rate and rhythm, no murmurs noted Spine: normal Carotid arteries: negative bruit Extremities: no LE edema Lab Results Anesthesia Preop Results Results Anesthesia Widget: WBC 5.38 K/ul (4.8-10.8) 06/18/24 Hgb 11.7 g/dl (14.0-18.0) L 06/18/24 Hct 36.3 % (42.0-52.0) L 06/18/24 Plt 108 K/uL (130-400) L 06/18/24 Na 138 mmol/L (136-145) 06/18/24 K 4.2 mmol/L (3.5-5.1) 06/18/24 Cl 104 mmol/L (98-107) 06/18/24 CO2 28 mmol/L (21-32) 06/18/24 BUN 29 mg/dl (6-23) H 06/18/24 Creat 2.13 mg/dl (0.6-1.4) H 06/18/24 Glucose Level 121 mg/dl (70-99(Fasting)) H 06/18/24 PT 10.4 Seconds (9.0-12.0) 06/18/24 PTT 26 Seconds (21-31) 06/18/24 INR 1.0 (0.9-1.1) 06/18/24 Blood Type A Positive 06/18/24 Antibody Screen NEGATIVE 06/18/24 Testing Electrocardiogram Date: 04/24/24 NSR at 74bpm. Moderate voltage criteria for LVH, may be normal variant. NS TWA. Chest X-Ray Date: 08/10/23 No acute cardiopulmonary findings. Echocardiogram Date: 04/10/24 LVEF 55-59%. Moderate sized septal and inferior wall abnormality with mild HK of the segments. Grade I DD. Moderately calcified AV. Mildly reduced aortic valve opening. Aortic stenosis is absent. Mild MR. Mildly increased cLV wall thickness.
--- NOTE | 2024-07-03 07:54 | History & Physical Report ---
Date of Service July 03, 2024 Assessment & Plan (1) Osteoarthritis of right shoulder: We will proceed with a right reverse shoulder arthroplasty. Postoperatively he will be kept overnight for postop medical management. He plans to use energy physical therapy upon discharge. History of Present Illness Chief Complaint: Osteoarthritis of the right shoulder. Primary Care Provider: Melissa Srinivasan MD Henrry is a pleasant 83-year-old male who I did a left reverse shoulder arthroplasty on about 9 months ago. He is doing fairly well with that. He does not have much pain. Unfortunately, he is dealing with severe pain of his right shoulder. He cannot do anything away from his body or up overhead. 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 After failed conservative treatment, he has elected to proceed with a right reverse shoulder arthroplasty. Allergies Allergy/AdvReac Type Severity Reaction Status Date / Time allopurinol Allergy Severe Facial/tongue Verified 06/10/24 10:56 swelling Sulfa (Sulfonamide Allergy Severe Face/lips/tongue Verified 06/18/24 10:41 Antibiotics) edema amoxicillin Allergy Intermediate Hives Verified 06/10/24 10:56 Calcium Channel Blocking Allergy Intermediate Hives Verified 06/10/24 10:56 Agents-Dih cantaloupe Allergy Intermediate Hives, rash Verified 06/18/24 10:41 ethacrynic acid Allergy Intermediate Rash Verified 06/10/24 10:56 Penicillins Allergy Intermediate Hives Verified 06/10/24 10:56 shellfish derived Allergy Intermediate Itchy hands Verified 06/18/24 10:41 vancomycin Allergy Intermediate Rash Verified 06/10/24 10:56 indapamide Allergy Unknown Unknown Verified 06/18/24 10:41 (per records) trichlormethiazide AdvReac Severe "Intolerance" Verified 06/10/24 10:[address] De León amlodipine AdvReac Intermediate "Intolerance" Verified 06/10/24 10:[address] [facility] [address] De León Beta-Blockers AdvReac Intermediate Bradycardia Verified 06/10/24 10:56 (Beta-Adrenergic Bloc ciprofloxacin [Cipro] AdvReac Intermediate Rash, Verified 06/18/24 10:41 shaking, dizziness divalproex sodium AdvReac Intermediate Diarrhea Verified 06/10/24 10:56 [From Depakote] valproic acid AdvReac Intermediate Diarrhea Verified 06/10/24 10:56 Home Medications Medication Instructions Recorded Confirmed Type aspirin 81 mg tablet,delayed 81 mg PO UD 10/21/20 06/10/24 History release atorvastatin 40 mg tablet 40 mg PO QAM 10/21/20 06/10/24 History febuxostat 80 mg tablet (Uloric) 80 mg PO QAM 10/21/20 06/10/24 History finasteride 5 mg tablet 5 mg PO QAM 10/21/20 06/10/24 History hydralazine 50 mg tablet 50 mg PO TID 10/21/20 06/10/24 History lisinopril 40 mg tablet 40 mg PO QAM 10/21/20 06/10/24 History nitroglycerin 0.4 mg sublingual 0.4 mg sublingual UD PRN Chest Pain 10/21/20 06/10/24 History tablet pantoprazole 40 mg tablet,delayed 40 mg PO QAM 10/21/20 06/10/24 History release (Protonix) tamsulosin 0.4 mg capsule 0.4 mg PO QAM 10/21/20 06/10/24 History albuterol sulfate 90 mcg/actuation 2 puff inhalation Q6H PRN 02/06/23 06/10/24 History aerosol inhaler CONGESTION/COUGH/WHEEZING diclofenac sodium 1 % topical gel 4 g topical BID PRN Pain 02/06/23 06/10/24 History cyanocobalamin (vitamin B-12) 1,000 mcg PO QAM 08/02/23 06/10/24 History 1,000 mcg tablet (Vitamin B-12) Past Med/Surg History Problem List Encounter for pre-operative examination Medical History Chronic anemia History of osteoarthritis Diverticular disease of colon Raynauds syndrome Peripheral neuropathy Myocardial infarction 2013 > stent x1 Lung nodules Hypertension Hyperlipidemia Hx of diverticulitis of colon CAD (coronary artery disease) Stent (BMS) x1 to RCA (2013) Follows with Dr. Willett BPH (benign prostatic hyperplasia) CKD (chronic kidney disease) stage 3, GFR 30-59 ml/min Follows with [facility] nephro 04/2024 creatinine 2.0- "stable" per nephro review Hearing loss Renal cyst Pancreatic cyst Thyroid nodule Hx of gout GERD (gastroesophageal reflux disease) Surgical History Status post reverse total replacement of left shoulder Left reverse TSA: Grade view 1, MAC#3, ETT 7.5 + regional at [facility] (09/05/23) History of anesthesia reaction Difficulty urinating after hernia surgery 2020- had to have a catheter placed for 10 days History of esophagogastroduodenoscopy (EGD) History of colonoscopy History of herniorrhaphy x4 Most recent 2020, [facility] History of cholecystectomy History of tooth extraction History of tonsillectomy and adenoidectomy History of cataract surgery R/L History of heart artery stent 2014 > stent x1 Family History Other No family history of adverse response to anesthesia Social History Smoking Status: Former smoker Tobacco Type: Cigarettes Second Hand Exposure: No; Do You Dip or Chew Tobacco: No; Hx Alcohol Use: Yes Alcohol type: hard liquor Hx Substance Use: No Preferred Language: Liberian Communication Ability: Effective Precision Assembler Required: No Beliefs That Will Affect Care: None Current Living Situation: Spouse Feels Safe at Home: Yes Assistive Devices: Denture - Upper, Denture - Lower and Glasses Review of Systems All systems reviewed & are unremarkable except as noted in HPI & below. Physical Exam On physical exam of the right shoulder, he has decreased range of motion. He has crepitus throughout.. Constitutional WD/WN, vitals as above Eyes PERRL, conjunctivae normal, anicteric sclerae ENMT external ear and nose normal, oropharynx normal Neck trachea midline, no thyromegaly Respiratory normal respiratory effort Cardiovascular RRR, no murmur, no edema Gastrointestinal (Abdomen) normal bowel sounds, soft, nontender, no hepatosplenomegaly Psychiatric A+Ox3, euthymic affect Results & Data Results & Data Laboratory Results . Diagnostic Findings X-rays of the right shoulder show advanced osteoarthritis with joint space narrowing, osteophyte formation, and [id number] articulation. PG Care Time/CCT Total # of Minutes Spent Total Time Spent with Patient: Total time spent is greater than 50% in coordination of care (as documented) at patient's floor/unit and/or counseling patient: Coding Level of Care Code None Diagnoses Osteoarthritis of right shoulder M19.011
[~2024-07-08 09:24] MED LIST changes: -ACETAMINOPHEN 500 MG TAB PO SCH; -FAMOTIDINE 20 MG TAB PO SCH; -GABAPENTIN 300 MG CAP PO SCH; -LR 15ML/HR IV SCH; -LR 60ML/HR IV SCH; -ROPIV 0.5% 246mg, Ketorolac 30mg, EPINEPHrine 0.5mg in NSS INFIL SCH; -TRANEXAMIC ACID 1,000 MG **IV Intra-op IV SCH; -TRANEXAMIC ACID 1,000 MG **IV Pre-op IV SCH; -ceFAZolin 2000MG 2,000 MG/15 ML SYR IV SCH; -dexAMETHasone**PF** 10 MG/ML VIAL IV SCH
[2024-07-08] MEDS ORDERED: ONDANSETRON INJ 2 MG/ML 2 ML VIAL ONE (10:12)
[2024-07-08] MEDS ORDERED: MIDAZOLAM HCL 1 MG/ML 2ML VIAL ONE (10:12)
[2024-07-08] MEDS ORDERED: PROPOFOL IV EMULSION 10 MG/ML 20 ML VIAL IV ONE (10:12)
[2024-07-08] MEDS ORDERED: fentaNYL citrate PF 100 MCG/2 ML VIAL ONE (10:12)
[2024-07-08] MEDS ORDERED: DEXAMETHASONE SOD INJ 4 MG/ML VIAL ONE (10:12)
[2024-07-08] MEDS ORDERED: LIDOCAINE 2% 2 ML VIAL/AMP(20MG/ML) INFIL ONE (10:12)
[2024-07-08] MEDS: LR 60ML/HR IV SCH (10:26)
[2024-07-08] MEDS: dexAMETHasone**PF** 10 MG/ML VIAL IV SCH (10:26)
[2024-07-08] MEDS: SODIUM CHLORIDE 0.9% 1000ML IV SCH (10:26)
[2024-07-08] MEDS: FAMOTIDINE 20 MG TAB PO SCH (10:27)
[2024-07-08] MEDS: GABAPENTIN 300 MG CAP PO SCH (10:27)
[2024-07-08] MEDS: ACETAMINOPHEN 500 MG TAB PO SCH (10:27)
--- NOTE | 2024-07-08 10:31 | History & Physical Bridge Note ---
Date of Service July 08, 2024 History & Physical Bridge Note I have examined the patient, reviewed the History & Physical and in the interval since the performance of the History & Physical I have noted the following changes of clinical significance: no changes noted
[2024-07-08] MEDS ORDERED: ATROPINE SULFATE 0.1 MG/ML 10ML SYR IV PRN (10:40)
[2024-07-08] MEDS ORDERED: ONDANSETRON INJ 2 MG/ML 2 ML VIAL IV PRN ×2 (10:40→14:04)
[2024-07-08] MEDS ORDERED: ePHEDrine sulfate 50 MG/ML AMP IV PRN (10:40)
[2024-07-08] MEDS ORDERED: fentaNYL citrate PF 100 MCG/2 ML VIAL IV PRN (10:40)
[2024-07-08] MEDS: TRANEXAMIC ACID 1,000 MG **IV Pre-op IV SCH (11:12)
[2024-07-08] MEDS: ceFAZolin 2000MG 2,000 MG/15 ML SYR IV SCH (11:22)
[2024-07-08] MEDS: ORTHO JOINT ANESTHETIC ONE (12:14)
[2024-07-08] MEDS: TRANEXAMIC ACID 1,000 MG **IV Intra-op IV SCH (12:28)
[2024-07-08] MEDS: ROPIV 0.5% 246mg, Ketorolac 30mg, EPINEPHrine 0.5mg in NSS INFIL SCH (12:35)
--- OUTSIDE RECORDS SUMMARY | 2024-07-08 12:53 | External Medical Summary | Summary of Care ---
Author Name Unknown Organization [facility] Address [address] [place] [address] Phone [phone] Care Team Providers Care Anesthetist Name Role Phone Melissa Srinivasan MD Primary Care Provider [phone] Reason for Visit * Reason Onset Date Comments Medication Refill 07/01/2024 Encounter Details Date Type Department Care Team (Late st Contact Info) Description 07/01/2024 Refill Rheumatology [place] [address] [address] [place] [address] Keo Leary MD [facility] [employer] [place] [address] Allergies Active Allergy Reactions Criticality Noted Date Comments Allopurinol Edema face/lips/tongue,Rash High 09/05/2011 Edema Other Reaction(s): Facial/tongue swelling Amoxicillin Hives 07/19/2004 Calcium Channel Blockers Hives 02/04/2011 Ciprofloxacin Rash High 11/23/2014 shakey and Dizzy Also Other Reaction(s): RASH/SHAKING/DIZZI NESS Depakote Er Diarrhea 12/28/2009 Ethacrynate Sodium Rash High 12/09/2010 Was taking Calan with Edecrin when he developed rash Ethacrynic Acid Rash High 04/21/2015 Other Reaction(s): Rash Indapamide 09/19/2011 Other Reaction(s): CAN'T REMEMBER, ON [facility] MED LIST Metoprolol Bradycardia 06/03/2013 Other - Foods Hives 07/19/2004 cantaloupe Shellfish-Derived Products Itching Low 02/15/2023 Sulfa Antibiotics Edema face/lips/tongue High 09/15/2009 Vancomycin Rash High 10/30/2012 Other Reaction(s): Rash documented as of this encounter (statuses as of 07/03/2024) Medications ASPIRIN 81 MG PO TABS 1 TABLET DAILY 04/08/20 14 Active nitroglycerin (NITROSTAT) 0.4 MG SUBLIndications: Coronary artery disease involving [place] coronary artery of [place] heart without angina pectoris One tablet under tongue if needed for chest pain. May repeat 3 times. If chest pain continues, call [phone] Tab 1 03/20/20 18 Active Diclofenac Sodium 1 % External Gel (Voltaren)Indica tions:Pain in joint of left shoulder,Pain of left upper arm Apply topically to affected area 2 g 2 times a day as needed for Pain. Apply to left shouder and arm 150 g 5 05/30/20 22 Active Fluticasone Propionate 50 MCG/ACT Nasal Suspension (Flonase)Indicat ions:Chronic pansinusitis Administer 2 Sprays into each nostril in the morning. 16 g 2 11/29/19 23 Active Additional Information Patient taking differently:2 Maxwell Each NostrilPRN, Rhinitis, Reported on 02/15/2023 B-12 1000 MCG Oral LozengeIndicatio ns:B12 deficiency Take 1 daily 02/22/20 23 Active Lisinopril 40 MG Oral Tablet TAKE 1 TABLET BY MOUTH ONCE DAILY IN THE MORNING 90 Tablet 3 11/02/19 24 Active Finasteride 5 MG Oral Tablet (Proscar) Take 1 Tablet by mouth in the morning. 90 Tablet 3 02/27/20 24 Active Tamsulosin HCl 0.4 MG Oral Capsule (Flomax)Indicati ons:BPH with obstruction/lowe r urinary tract symptoms Take 1 Capsule by mouth in the morning. 90 Capsule 3 02/27/20 24 Active hydrALAZINE HCl 50 MG Oral Tablet (Apresoline) Take 1 Tablet by mouth in the morning and 1 Tablet at noon and 1 Tablet before bedtime. 270 Tablet 2 04/15/20 24 Active Additional Information Patient taking differently:50 mg OralBID (.AM/PM), Reported on 04/24/2024 Furosemide 20 MG Oral Tablet (Lasix)Indicatio ns:Edema, unspecified type Take 1 tablet by mouth only NEEDED for weight gain of 3-5 lbs or increased swelling. 15 Tablet 1 04/24/20 24 Active Pantoprazole Sodium 40 MG Oral Tablet Delayed Release (Protonix)Indica tions:GERD (gastroesophagea l reflux disease) Take 1 tablet by mouth once daily 90 Tablet 1 05/14/20 24 Active Atorvastatin Calcium 40 MG Oral Tablet (Lipitor)Indicat ions:Hypercholes teremia Take 1 Tablet by mouth in the morning. 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 12/21/2018 Primary osteoarthritis of both shoulders 017 [...] 01/28/2011 Raynaud's syndrome 11/16/2010 PERIPHERAL NEUROPATHY 11/16/2010 documented as of this encounter (statuses as of 07/03/2024) Resolved Problems Problem Noted Date Diagnosed Date Resolved Date Benign hypertension with CKD (chronic kidney disease) stage III 03/15/2017 12/24/2020 Overview: Per CKD protocol 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 Epididymitis 01/06/2015 03/15/2017 Overview (01/06/2015): Right side. 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 documented as of this encounter (statuses as of 07/03/2024) Immunizations Name Administration Dates Next Due COVID-19 mRNA, LNP-s, No Pre serve, 2-Dose Series (Pfizer) 06/21/2021,11/26/2020,11/04/2020 Pneumococcal Conjugate Vacc, 13 Valent (Prevnar) 12/15/2015 Pneumococcal Polysaccharide PPV23 (Pneumovax) 11/21/2013 Season Influenza, Quad, PF, Adjuvanted, 65+ Yrs, IM (FLUAD) 06/26/2020 Seasonal Influenza Vac., MDV , IM, 0.5 mL (Fluzone) 06/04/2014,05/13/2013,06/14/2012,07/14 Seasonal Influenza, PF, 6 M & above, IM , (FluLaval or Fluzone) 05/19/2018,09/20/2017 05/19/2019 Seasonal Influenza, Quadriva lent Hd (Fluzone Hd) 05/31/2023,05/30/2022,05/24/2021 Seasonal Influenza, Quadriva lent Hd, 65+ Yrs 05/30/2022,05/24/2021,06/26/2020,09/14,05/19/2018,09/20/2017,06/20/20 16,06/04/2014,05/13/2013,06/14/2012,1 09/26/2010 Seasonal Influenza, Quadriva lent, No Preserve, IM 06/20/2016,06/15/2015 Seasonal Influenza, Trivalen t, Adjuvanted, 65+ YRS, PF, (Fluad) 09/23/2019 TDAP (age 10 and older)(Boostrix) 03/15/2017 [...] Assigned at Male 03/22/2019 10:06 AM EDT Legal Sex Male 5:29 AM EST Gender Identity Male 03/22/2019 10:06 AM EDT Sexual Orientation Straight 03/22/2019 10 :06 AM EDT documented as of this encounter Miscellaneous Notes * Telephone Encounter - Ibrahima Aleman OSA - 07/03/2024 11:44 AM EST [place] - Patient Related Communication Reason for Call: [facility] pharmacy called to ask if new prescription could be sent for 40 mg. The 80 mg are odd shape and may not cut even. [facility] [address] MERA JANSEN Thank you XENIA Irene * Telephone Encounter - Kathi Villeda RPh - 07/03/2024 8:52 AM ESTSigned Prescriptions: Disp Refills Febuxostat 80 MG Oral Tablet (Uloric) 26 Tab*1 Sig: Take one-half tablet by mouth 3 to 4 times weeklyAuthorizing Provider: KEO LEARY User: KATHI VILLEDA * Telephone Encounter - Kathi Villeda RPh - 07/03/2024 8:50 AM EST Rheumatology: Refill Request(s) Per review of the refill parameters, Medication was refilled Updated sig per last visit note "Okay to move Uloric to 3 or 4 times a week-40 mg dose " Kathi Villeda RPh [facility] Clinical Pharmacist Rheumatology Department 07/03/2024,8:50 AM * Telephone Encounter - Geovanna Green LPN - 07/01/2024 3:06 PM EST Pending Prescriptions: Disp Refills Febuxostat 80 MG Oral Tablet (Uloric) 39 Tab*1 Sig: Take 1 tablet by mouth 3 times weekly Last Visit: 05/14/2024 (in office), Visit date not found (telemedicine) Next Visit: 05/14/2025 Patient Active Problem List Diagnosis Raynaud's syndrome PERIPHERAL NEUROPATHY HTN, goal below 140/90 Generalized osteoarthritis Renal cyst Diverticulitis of colon CAD (coronary artery disease) Presence of bare metal stent in right coronary artery BPH with obstruction/lower urinary tract symptoms Dyslipidemia, goal LDL below 70 Incidental lung nodule, > 3mm and < 8mm Beta-blockers contraindicated due to bradycardia Impingement syndrome of both shoulders Primary osteoarthritis of both hips History of Clostridium difficile colitis Sensorineural hearing loss (SNHL) of both ears Thyroid nodule History of placement of stent in LAD coronary artery 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 Stage 3b chronic kidney disease (HCC) 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) Heart failure (HCC) documented in this encounter Plan of Treatment Upcoming Encounters Date Type Department Care Team (Late st Contact Info) Description 09/11/2024 11:40 AM EST Office Visit Nephrology, [facility] [address] [place] [address] Jacques Srinivasan MD [address] [place] [address] [place] [address] 10/03/2024 9:40 AM EST Office Visit General Internal Medicine [place] [facility] [place] [address] [place] [address] Melissa Srinivasan MD [address] [place], [place] [address] 11/04/2024 9:30 AM EDT Office Visit Cardiology, [facility] [address] [place] [address] Joan Alexander PA-C [address] [facility] [place] [address] 02/26/2025 11:30 AM EDT Office Visit Urology, [facility] 132 [facility] [place] [address] Eladio Vidal MD [address] [facility] [place] [id number] 05/14/2025 11:00 AM EDT Office Visit Rheumatology [facility] [address] [place] [address] Keo Leary MD [address] [place] [address] Scheduled Procedures Name Priority Associated Diagnoses Date/Ti me COLONOSCOPY FLEXIBLE PROXIMA L DIAGNOSTIC Recall History of colonic polyps Health Maintenance Due Date Last Done Comments Zoster Vaccines (1 of 2) 1990 Adult Wellness Visit 02/16/2022 02/16/2021 Depression Screening 11/29/2023 11/28/2022 COVID-19 Vaccine ( season) 2024 06/21/2021, 11/26/2020, 11/04/2020 Influenza Vaccine (FLU shot) (#1) 2024 05/31/2023, 05/30/2022, 05/30/2022, Additional history exists GFR 11/05/2024 05/08/2024, 03/15, 12/25/2023, Additional history exists Colonoscopy 11/19/2024 11/20/2023, 0403/2024, 04/28/2020, Additional history exists CKD PHOS USE SMARTSET 24758 12/24/202412/12, 08/31/2023, 05/29/2023, Additional history exists Albumin/Creatinine Ratio 04/09/2025 024, 11/28/2022, 01/18/2013, Additional history exists CKD HGB USE SMARTSET 75900 04/09/202504/09, 12/25/2023, 12/25/2023, Additional history exists DTap/Tdap Vaccines (2 - Td or Tdap) 03/15/2027 03/15/2017 Pneumococcal Vaccine: 65+ Years Completed 12/15/2015, 11/21/2013 RETIRED - COLONOSCOPY-ANNUAL AGES 18-100 Discontinued 11/20/2023, 11/20/2023, 04/28/2020, Additional history exists HPV (Gardasil) Vaccine Aged Out No lo nger eligible based on patient's age to complete this topic Hepatitis B Vaccine Aged Out No longe r eligible based on patient's age to complete this topic MENINGOCOCCAL (MENACTRA/MENVEO) Aged Out No longer eligible based on patient's age to complete this topic documented as of this encounter Medical Devices Implanted Type Area Salon Leader Device Identifier Shelf Expiration Date Model / Serial / Lot Mesh Proloop Preshp 1.3x1.1in - [id number] Implanted:Qty: 1 on 02/03/2015 by Millie Robin MD [place] [facility] [place]: Groin [employer] 11/12/2019 [id number] / / [id number] Description:small proloop me sh Mesh Prolite Nohole 2.5x5.5in - [id number] Implanted:Qty: 1 on 02/03/2015 by Millie Robin MD [place] [facility] [place] Right: Groin [employer] 07/13/2016 [id number] / / [id number] Description:mesh prolite no hole 2.5 in x 5.5 in (6.4 cm x 14 cm) Mesh Proloop Preshp 1.3x1.55in - [id number] Implanted:Qty: 1 on 02/03/2015 by Millie Robin MD [place] [facility] Left: Groin [employer] 03/13/2019 [id number] / / [id number] Description:1.3 in x 1.55 in . (3.3 cm x 3.9 cm) proloop mesh Mesh Prolite Nohole 2.5x5.5in - [id number] Implanted:Qty: 1 on 02/03/2015 by Millie Robin MD at [place] [facility] [place] Left: Groin [employer] 07/13/2016 [id number] / / [id number] Description:2.5 in x 5.5 in (6.4 cm x 14 cm) mesh prolite, no hole documented as of this encounter Advance Directives * Full Code (Latest Code Status on File) Date Activated Date Inactivated Comments 11/30/2018 8:18 AM 11/30/2018 1:12 PM This order r eflects the patients wishes and were consensually agreed upon. Question Answer Comments Discussion of Advance Directives occurred with: Patient Does the patient have a Living Will? No Does the patient have Health Care Power of Attor fredrick? No Care Teams Anesthetist Relationship Specialty Start Date End Date Melissa Srinivasan MD [address] [facility] [place] [address] PCP - General Internal Medicine 12/29/21 documented as of this encounter
--- OUTSIDE RECORDS SUMMARY | 2024-07-08 12:53 | External Medical Summary | Summary of Care ---
Author Name Unknown Organization [facility] Address [address] [place] [address] Phone [phone] Care Team Providers Care Flatwork Presser Name Role Phone Melissa Srinivasan MD Primary Care Provider [phone] Reason for Visit * Reason Onset Date Comments Medication Refill 07/01/2024 Encounter Details Date Type Department Care Team (Late st Contact Info) Description 07/01/2024 Refill Rheumatology [place] [address] [employer] [place] [address] Keo Leary MD [facility] [employer] [place] [address] Allergies Active Allergy Reactions Criticality Noted Date [...] 0.4 MG SUBLIndications: Coronary artery disease involving [place] coronary artery of [place] heart without angina pectoris One tablet under tongue if needed for chest pain. May repeat 3 times. If chest pain continues, call [phone] Tab 1 03/20/20 18 Active Diclofenac [...] 23 Active Additional Information Patient taking differently:2 Allamuchy Each NostrilPRN, Rhinitis, Reported on 02/15/2023 B-12 [...] Epididymitis 01/06/2015 03/15/2017 Overview (01/06/2015): Right side. [place], old 04/08/2014 08/11/2014 Hypercholesteremia 02/05/2014 7 Diverticulitis [...] encounter Miscellaneous Notes * Telephone Encounter - Kathi Villeda RPh [...] week-40 mg dose " Kathi Villeda RPh [facility] Clinical Pharmacist Rheumatology Department [...] Care Team (Late st Contact Info) Description 07/03/2024 11:00 AM EST Imaging Vascular Lab, [facility] [address] [address] 09/11/2024 11:40 AM EST Office Visit Nephrology, [facility] [address] [place] [address] Jacques Srinivasan MD [address] [place] [address] 10/03/2024 9:40 AM EST Office Visit General Internal Medicine [facility] [address] [place] [address] Melissa Srinivasan MD [address] [place] [address] 11/04/2024 9:30 AM EDT Office Visit Cardiology, [address] [place] [address] Joan Alexander PA-C [address] [place] [address] 02/26/2025 11:30 AM EDT Office Visit Urology, [facility] [address] [place] [address] Eladio Vidal MD [address] [place] [address] 05/14/2025 11:00 AM EDT Office Visit Rheumatology [facility] [address] [place] [address] Keo Leary MD [address] [facility] [place] [address] Scheduled Procedures Name Priority Associated Diagnoses Date/Ti [...] Additional history exists CKD PHOS USE SMARTSET 74527 12/24/202412/12, 08/31/2023, 05/29/2023, Additional history exists Albumin/Creatinine Ratio 04/09/2025 024, 11/28/2022, 01/18/2013, Additional history exists CKD HGB USE SMARTSET 23612 04/09/202504/09, 12/25/2023, 12/25/2023, Additional history exists DTap/Tdap [...] this encounter Medical Devices Implanted Type Area Med Admin Device Identifier Shelf Expiration Date Model / Serial / Lot Mesh Proloop Preshp 1.3x1.1in - [id number] Implanted:Qty: 1 on 02/03/2015 by Millie Robin [place] [facility] Right: Groin [employer] 11/12/2019 [id number] / / [id number] Description:small proloop me sh Mesh Prolite Nohole 2.5x5.5in - [id number] Implanted:Qty: 1 on 02/03/2015 by Millie Robin MD [place] [facility] [place] Right: Groin [employer] 07/13/2016 [id number] / / [id number] Description:mesh prolite no hole 2.5 in x 5.5 in (6.4 cm x 14 cm) Mesh Proloop Preshp 1.3x1.55in - [id number] Implanted:Qty: 1 on 02/03/2015 by Millie Robin MD [place] [facility] [place] Left: Groin [employer] 03/13/2019 [id number] / / [id number] Description:1.3 in x 1.55 in . (3.3 cm x 3.9 cm) proloop mesh Mesh Prolite Nohole 2.5x5.5in - [id number] Implanted:Qty: 1 on 02/03/2015 by Millie Robin MD [place] [facility] [place] Left: Julia [employer] 07/13/2016 [id number] / / [id number] Description:2.5 in x 5.5 in (6.4 cm [...] Power of Attor fredrick? No Care Teams Flatwork Presser Relationship Specialty Start Date End Date Melissa Srinivasan MD [address] [place] [address] PCP - General Internal Medicine 12/29/21 documented as of this encounter
--- OUTSIDE RECORDS SUMMARY | 2024-07-08 12:53 | External Medical Summary | Summary of Care ---
Author Name Unknown Organization [facility] Address [address] [place] [address] Phone [phone] Care Team Providers Care Scale Balancer Name Role Phone Melissa Srinivasan MD Primary Care Provider [phone] Reason for Visit * Reason Onset Date Comments Medication Refill 07/01/2024 Encounter Details Date Type Department Care Team (Late st Contact Info) Description 07/01/2024 Refill Rheumatology [place] [address] [employer] [place] [address] Keo Leary MD [facility] [employer] [place] [address] Allergies Active Allergy Reactions Criticality Noted Date [...] 0.4 MG SUBLIndications: Coronary artery disease involving [place] coronary artery of [place] heart without angina pectoris One tablet under tongue if needed for chest pain. May repeat 3 times. If chest pain continues, call [phone] Tab 1 03/20/20 18 Active Diclofenac [...] 23 Active Additional Information Patient taking differently:2 Dazey Each NostrilPRN, Rhinitis, Reported on 02/15/2023 B-12 [...] Epididymitis 01/06/2015 03/15/2017 Overview (01/06/2015): Right side. [place], old 04/08/2014 08/11/2014 Hypercholesteremia 02/05/2014 7 Diverticulitis [...] Encounter - Kathi Villeda RPh - 07/03/2024 3:00 PM EST Contacted pharmacy and advised of message to keep Rx as 80mg tablets per patient's preference. Thank you, Kathi Villeda, PharmD Clinical Pharmacist [facility] ([facility]) [phone] 07/03/2024 3:00 PM * Telephone Encounter - Keo Leary MD - 07/03/2024 2:29 PM EST Kathi He was either cutting the tabs in half for taking every other day. We continue the 80 mg tab because of cost of the prescription when he was getting the 40 mg. It was more economical for him to have the 80 mg tabs to take it the way he has been doing. I am fine with what the patient is currently doing. Keo Leary MD * Telephone Encounter - Kathi Villeda RPh - 07/03/2024 1:48 PM EST Attempted to call patient to obtain his preference but was unable to reach. Pt has been taking 1/2 tab, but his Rx wasn't updated until today. I assume that Henrry has been cutting the tablets in half without incident, but the tablets are oddly shaped and so there is a chancethey are not cutting perfectly evenly. Dr Leary are you ok with him continuing as he has been doing? Or would you prefer to change to 40mg tablet so he does not have to cut? I can advise pharmacy if routed back to me. Thank you, Kathi Villeda PharmD Clinical Pharmacist [facility] ([facility]) [phone] 07/03/2024 1:51 PM * Telephone Encounter - Ibrahima Aleman OSA - 07/03/2024 11:44 AM EST [place] - Patient Related Communication Reason for Call: [facility] pharmacy called to ask if new prescription could be sent for 40 mg. The 80 mg are odd shape and may not cut even. [facility] [address] [place] [address] MERA JANSEN Thank you XENIA Irene * [...] week-40 mg dose " Kathi Villeda RPh [facility] Clinical Pharmacist Rheumatology Department 07/03/2024,8:50 [...] Nephrology, [facility] [address] [place] [address] Jacques Srinivasan MD [address] [place] [address] 10/03/2024 9:40 AM EST Office Visit General Internal Medicine [place] Torie Retana [address] [place] [address] Melissa Srinivasan MD [address] [place] [address] [place] [address] 11/04/2024 9:30 AM EDT Office Visit Cardiology, [facility] [address] [facility] [place] [address] Joan Alexander PA-C 132 [facility] [place] [address] 02/26/2025 11:30 AM EDT Office Visit Urology, [facility] [address] [facility] [place] [address] Eladio Vidal MD [address] [place] [id number] 05/14/2025 11:00 AM EDT Office Visit [address]umatology [address] [place] [address] Keo Leary MD [facility] [place] [address] Scheduled Procedures Name Priority Associated Diagnoses Date/Ti [...] 12/25/2023, Additional history exists Colonoscopy 11/19/2024 11/20/2023, 04/0 03/2024, 04/28/2020, Additional history exists CKD PHOS USE SMARTSET 38449 12/24/202412/12, 08/31/2023, 05/29/2023, Additional history exists Albumin/Creatinine Ratio 04/09/2025 024, 11/28/2022, 01/18/2013, Additional history exists CKD HGB USE SMARTSET 15956 04/09/202504/09, 12/25/2023, 12/25/2023, Additional history exists DTap/Tdap [...] this encounter Medical Devices Implanted Type Area Grainer Machine Device Identifier Shelf Expiration Date Model / Serial / Lot Mesh Proloop Preshp 1.3x1.1in - [id number] Implanted:Qty: 1 on 02/03/2015 by Mill[place] Robin [place] [facility] [place]: Groin [employer] 11/12/2019 [id number] / / [id number] Description:small proloop me sh Mesh Prolite Nohole 2.5x5.5in - [id number] Implanted:Qty: 1 on 02/03/2015 by Millie Robin MD [place] [facility] [place]: Groin [employer] 07/13/2016 [id number] / / [id number] Description:mesh prolite no hole 2.5 in x 5.5 in (6.4 cm x 14 cm) Mesh Proloop Preshp 1.3x1.55in - [id number] Implanted:Qty: 1 on 02/03/2015 by Millie Robin MD [place] [facility] [place]: Groin [employer] 03/13/2019 [id number] / / [id number] Description:1.3 in x 1.55 in . (3.3 cm x 3.9 cm) proloop mesh Mesh Prolite Nohole 2.5x5.5in - [id number] Implanted:Qty: 1 on 02/03/2015 by Millie Robin MD [place] [facility] [place] Left: Groin [employer] 07/13/2016 [id number] / / [id number] Description:2.5 in x 5.5 in (6.4 cm [...] Power of Attor fredrick? No Care Teams Scale Balancer Relationship Specialty Start Date End Date Melissa Srinivasan MD 200 [facility] [place] [address] PCP - General Internal Medicine 12/29/21 documented as of this encounter
--- OUTSIDE RECORDS SUMMARY | 2024-07-08 12:53 | External Medical Summary | Summary of Care ---
Author Name Unknown Organization [facility] Address [address] [place] [address] Phone [phone] Care Team Providers Care Wind Science And Planning Name Role Phone Melissa Srinivasan MD Primary Care Provider [phone] Reason for Visit * Reason Onset Date Comments Medication Refill 07/01/2024 Encounter Details Date Type Department Care Team (Late st Contact Info) Description 07/01/2024 Refill Rheumatology [place] [address] [address] [place] [address] Keo Leary MD [facility] [employer] [place] [address] Allergies Active Allergy Reactions Criticality Noted Date [...] 0.4 MG SUBLIndications: Coronary artery disease involving [place] coronary artery of [place] heart without angina pectoris One tablet under tongue if needed for chest pain. May repeat 3 times. If chest pain continues, call [phone] Tab 1 03/20/20 18 Active Diclofenac [...] 23 Active Additional Information Patient taking differently:2 [place] Each NostrilPRN, Rhinitis, Reported on 02/15/2023 B-12 [...] Epididymitis 01/06/2015 03/15/2017 Overview (01/06/2015): Right side. [place], old 04/08/2014 08/11/2014 Hypercholesteremia 02/05/2014 7 Diverticulitis [...] Aleman OSA - 07/03/2024 11:44 AM EST [place] - Patient Related Communication Reason for Call: [facility] pharmacy called to ask if new prescription could be sent for 40 mg. The 80 mg are odd shape and may not cut even. E [facility] [address] MER[place] JANSEN Thank you XENIA Irene * [...] week-40 mg dose " Kathi Villeda RPh [facility] Clinical Pharmacist Rheumatology Department 07/03/2024,8:50 [...] Nephrology, Yong Turner [address] [place] [address] Jacques Srinivasan MD [address] [place] [place] [address] 10/03/2024 9:40 AM EST Office Visit General Internal Medicine State Torie Retana [address] [place] [place] [address] Melissa Srinivasan MD [address] [place], [place] [address] 11/04/2024 9:30 AM EDT Office Visit Cardiology, [facility] [address] [place] [address] Joan Alexander PA-C 132 [place] [address] 02/26/2025 11:30 AM EDT Office Visit Urology, [facility] [address] [place] [address] Eladio Vidal MD [address] [facility] [place] [id number] 05/14/2025 11:00 AM EDT Office Visit Rheumatology [facility] [address] [place] [address] Keo Leary MD [address] [place] [address] Scheduled Procedures Name Priority Associated Diagnoses Date/Ti [...] Additional history exists CKD PHOS USE SMARTSET 06332 12/24/202412/12, 08/31/2023, 05/29/2023, Additional history exists Albumin/Creatinine Ratio 04/09/2025 024, 11/28/2022, 01/18/2013, Additional history exists CKD HGB USE SMARTSET 16920 04/09/202504/09, 12/25/2023, 12/25/2023, Additional history exists DTap/Tdap [...] this encounter Medical Devices Implanted Type Area Booster Station Operator Device Identifier Shelf Expiration Date Model / Serial / Lot Mesh Proloop Preshp 1.3x1.1in - [id number] Implanted:Qty: 1 on 02/03/2015 by Millie Robin [place] [facility] [place]: Groin [employer] 11/12/2019 [id number] / / [id number] Description:small proloop me sh Mesh Prolite Nohole 2.5x5.5in - [id number] Implanted:Qty: 1 on 02/03/2015 by Millie Robin MD [place] [facility] [place]: Groin [employer] 07/13/2016 [id number] / / [id number] Description:mesh prolite no hole 2.5 in x 5.5 in (6.4 cm x 14 cm) Mesh Proloop Preshp 1.3x1.55in - [id number] Implanted:Qty: 1 on 02/03/2015 by Millie Robin MD [place] [facility] [place]: Groin [employer] 03/13/2019 [id number] / / [id number] Description:1.3 in x 1.55 in . (3.3 cm x 3.9 cm) proloop mesh Mesh Prolite Nohole 2.5x5.5in - [id number] Implanted:Qty: 1 on 02/03/2015 by Millie Robin MD [place] [facility] [place]: Groin [employer] 07/13/2016 [id number] / / [id number] Description:2.5 in x 5.5 in (6.4 cm [...] Power of Attor fredrick? No Care Teams Wind Science And Planning Relationship Specialty Start Date End Date Melissa Srinivasan MD 200 [place] [address] PCP - General Internal Medicine 12/29/21 documented as of this encounter
--- OUTSIDE RECORDS SUMMARY | 2024-07-08 12:53 | External Medical Summary | Summary of Care ---
Author Name Unknown Organization [facility] Address [address] [place] [address] Phone [phone] Care Team Providers Care Per Diem Physical Therapist Name Role Phone Melissa Srinivasan MD Primary Care Provider [phone] Reason for Visit * Reason Onset Date Comments Medication Refill 07/01/2024 Encounter Details Date Type Department Care Team (Late st Contact Info) Description 07/01/2024 Refill Rheumatology [place] [address] [address] [place] [address] Keo Leary MD [facility] [place] [address] Allergies Active Allergy Reactions Criticality Noted Date [...] 0.4 MG SUBLIndications: Coronary artery disease involving [place] coronary artery of [place] heart without angina pectoris One tablet under tongue if needed for chest pain. May repeat 3 times. If chest pain continues, call [phone] 25 Tab 1 03/20/20 18 Active Diclofenac [...] 23 Active Additional Information Patient taking differently:2 [place] Each NostrilPRN, Rhinitis, Reported on 02/15/2023 B-12 [...] Epididymitis 01/06/2015 03/15/2017 Overview (01/06/2015): Right side. [place], old 04/08/2014 08/11/2014 Hypercholesteremia 02/05/2014 7 Diverticulitis [...] encounter Miscellaneous Notes * Telephone Encounter - Keo Leary MD [...] MD * Telephone Encounter - Kathi Villeda [facility] - 07/03/2024 1:48 PM EST Attempted to [...] routed back to me. Thank you, Kathi Villeda, PharmD Clinical Pharmacist Centralized Clinical Pharmacy Services (CCPS) [phone] 07/03/2024 1:51 PM * Telephone Encounter - Ibrahima Aleman OSA - 07/03/2024 11:44 AM EST [place] - Patient Related Communication Reason for Call: [facility] pharmacy called to ask if new prescription could be sent for 40 mg. The 80 mg are odd shape and may not cut even. E [facility] [address] [address] [place] Thank you XENIA Irene * [...] week-40 mg dose " Kathi Villeda RPh [facility] Clinical Pharmacist Rheumatology Department 07/03/2024,8:50 AM [...] 09/11/2024 11:40 AM EST Office Visit Nephrology, [facility] [address] [place] [address] [address] Jacques Srinivasan MD [address] [place] [address] [address] 10/03/2024 9:40 AM EST Office Visit General Internal Medicine [facility] [place] [address] [address] Melissa Srinivasan MD [address] [place] [place] [address] 11/04/2024 9:30 AM EDT Office Visit Cardiology, [facility] [address] [address] Joan Alexander PA-C [address] [address] 02/26/2025 11:30 AM EDT Office Visit Urology, [facility] [address] [place] [address] Eladio Vidal MD [address] [place] [address] 05/14/2025 11:00 AM EDT Office Visit Rheumatology [place] [id number] [address] [place] [address] Keo Leary MD [address] [place] [place] [address] Scheduled Procedures Name Priority Associated Diagnoses Date/Ti [...] Additional history exists CKD PHOS USE SMARTSET 21983 12/24/202412/12, 08/31/2023, 05/29/2023, Additional history exists Albumin/Creatinine Ratio 04/09/2025 024, 11/28/2022, 01/18/2013, Additional history exists CKD HGB USE SMARTSET 61964 04/09/202504/09, 12/25/2023, 12/25/2023, Additional history exists DTap/Tdap [...] this encounter Medical Devices Implanted Type Area Break Out Man Device Identifier Shelf Expiration Date Model / Serial / Lot Mesh Proloop Preshp 1.3x1.1in - [id number] Implanted:Qty: 1 on 02/03/2015 by Millie Robin [place] [facility] [place]: Groin [employer] 11/12/2019 [id number] / / [id number] Description:small proloop me sh Mesh Prolite Nohole 2.5x5.5in - [id number] Implanted:Qty: 1 on 02/03/2015 by Millie Robin MD [place] [facility] [place]: Groin [employer] 07/13/2016 [id number] / / [id number] Description:mesh prolite no hole 2.5 in x 5.5 in (6.4 cm x 14 cm) Mesh Proloop Preshp 1.3x1.55in - [id number] Implanted:Qty: 1 on 02/03/2015 by Millie Robin MD [place] [facility] [place]: Groin [employer] 03/13/2019 [id number] / / [id number] Description:1.3 in x 1.55 in . (3.3 cm x 3.9 cm) proloop mesh Mesh Prolite Nohole 2.5x5.5in - [id number] Implanted:Qty: 1 on 02/03/2015 by Millie Robin MD [place] [facility] [place] Left: Groin [employer] 07/13/2016 [id number] / / [id number] Description:2.5 in x 5.5 in (6.4 cm [...] Power of Attor fredrick? No Care Teams Per Diem Physical Therapist Relationship Specialty Start Date End Date Melissa Srinivasan MD [address] [place] [address] PCP - General Internal Medicine 12/29/21 documented as of this encounter
--- OUTSIDE RECORDS SUMMARY | 2024-07-08 12:53 | External Medical Summary | Summary of Care ---
Author Name Unknown Organization [facility] Address [address] [place] [address] Phone [phone] Care Team Providers Care Recycling Crew Supervisor Name Role Phone Melissa Srinivasan MD Primary Care Provider [phone] Reason for Visit * Reason Onset Date Comments Medication Refill 07/01/2024 Encounter Details Date Type Department Care Team (Late st Contact Info) Description 07/01/2024 Refill Rheumatology [place] [address] [address] [place] [address] Keo Leary MD [facility] [place] [employer] [place] [address] Allergies Active Allergy Reactions Criticality Noted Date [...] 0.4 MG SUBLIndications: Coronary artery disease involving [place] coronary artery of [place] heart without angina pectoris One tablet under tongue if needed for chest pain. May repeat 3 times. If chest pain continues, call [phone] 25 Tab 1 03/20/20 18 Active Diclofenac [...] 23 Active Additional Information Patient taking differently:2 [place] Each NostrilPRN, Rhinitis, Reported on 02/15/2023 B-12 [...] Epididymitis 01/06/2015 03/15/2017 Overview (01/06/2015): Right side. [place], old 04/08/2014 08/11/2014 Hypercholesteremia 02/05/2014 7 Diverticulitis [...] Aleman OSA - 07/03/2024 11:44 AM EST [place] - Patient Related Communication Reason for Call: [facility] pharmacy called to ask if new prescription could be sent for 40 mg. The 80 mg are odd shape and may not cut even. E [facility][note 3]-[place] [address] [place]ANSEN Thank you XENIA Irene * [...] week-40 mg dose " Kathi Villeda RPh [facility] Clinical Pharmacist Rheumatology Department 07/03/2024,8:50 AM [...] Nephrology, Yong Turner [address] [place] [place] [address] Jacques Srinivasan MD [address] [place] [place] [address] 10/03/2024 9:40 AM EST Office Visit General Internal Medicine State Torie Retana [address] [place] [address] Melissa Srinivasan MD [address] [place], [place] [address] 11/04/2024 9:30 AM EDT Office Visit Cardiology, [facility] 132 [place] [address] Joan Alexander PA-C 132 [place] [address] 02/26/2025 11:30 AM EDT Office Visit Urology, [facility] 132 [facility] [place] [address] Eladio Vidal MD 27 [facility] [place] [address] 05/14/2025 11:00 AM EDT Office Visit Rheumatology [facility] [address] [place] [address] Keo Leary MD [address] [place] [address] Scheduled Procedures Name Priority Associated Diagnoses Date/Ti [...] Additional history exists CKD PHOS USE SMARTSET 18440 12/24/202412/12, 08/31/2023, 05/29/2023, Additional history exists Albumin/Creatinine Ratio 04/09/2025 024, 11/28/2022, 01/18/2013, Additional history exists CKD HGB USE SMARTSET 91549 04/09/202504/09, 12/25/2023, 12/25/2023, Additional history exists DTap/Tdap [...] this encounter Medical Devices Implanted Type Area Geodetic Surveyor Technologist Device Identifier Shelf Expiration Date Model / Serial / Lot Mesh Proloop Preshp 1.3x1.1in - [id number] Implanted:Qty: 1 on 02/03/2015 [place] [facility] [place]: Groin [employer] 11/12/2019 [id number] / / [id number] Description:small proloop me sh Mesh Prolite Nohole 2.5x5.5in - [id number] Implanted:Qty: 1 on 02/03/2015 [place] Millie Robin [place] [facility] [place]: Groin [employer] 07/13/2016 [id number] / / [id number] Description:mesh prolite no hole 2.5 in x 5.5 in (6.4 cm x 14 cm) Mesh Proloop Preshp 1.3x1.55in - [id number] Implanted:Qty: 1 on 02/03/2015 [place] Mill[place] [facility] [place]: Groin [employer] 03/13/2019 [id number] / / [id number] Description:1.3 in x 1.55 in . (3.3 cm x 3.9 cm) proloop mesh Mesh Prolite Nohole 2.5x5.5in - [id number] Implanted:Qty: 1 on 02/03/2015 by Millie Robin [place] [facility] [place]: Groin [employer] 07/13/2016 [id number] / / [id number] Description:2.5 in x 5.5 in (6.4 cm [...] Power of Attor fredrick? No Care Teams Recycling Crew Supervisor Relationship Specialty Start Date End Date Melissa Srinivasan MD 200 [facility] [place] [facility] [place] [address] PCP - General Internal Medicine 12/29/21 documented as of this encounter
--- OUTSIDE RECORDS SUMMARY | 2024-07-08 12:53 | External Medical Summary | Summary of Care ---
Author Name Unknown Organization [facility] Address [address] [place] [address] Phone [phone] Care Team Providers Care Treasurer Savings Bank Name Role Phone Melissa Srinivasan MD Primary Care Provider Reason for Visit * Reason Onset Date Comments Medication Refill 07/01/2024 Encounter Details Date Type Department Care Team (Late st Contact Info) Description 07/01/2024 Refill Rheumatology [place] [address] [address] [place] [address] Keo Leary MD [facility] [employer] [place] [address] Allergies Active Allergy Reactions Criticality Noted Date [...] 0.4 MG SUBLIndications: Coronary artery disease involving [place] coronary artery of [place] heart without angina pectoris One tablet under tongue if needed for chest pain. May repeat 3 times. If chest pain continues, call [phone] 25 Tab 1 03/20/20 18 Active Diclofenac [...] 23 Active Additional Information Patient taking differently:2 [place] Each NostrilPRN, Rhinitis, Reported on 02/15/2023 B-12 [...] Epididymitis 01/06/2015 03/15/2017 Overview (01/06/2015): Right side. [place], old 04/08/2014 08/11/2014 Hypercholesteremia 02/05/2014 7 Diverticulitis [...] Aleman OSA - 07/03/2024 11:44 AM EST [place] - Patient Related Communication Reason for Call: [facility] pharmacy called to ask if new prescription could be sent for 40 mg. The 80 mg are odd shape and may not cut even. E [facility]-[place] [address] MER[place] JANSEN Thank you XENIA Irene * [...] week-40 mg dose " Kathi Villeda RPh [facility] Clinical Pharmacist Rheumatology Department 07/03/2024,8:50 AM * [...] Nephrology, Yong Turner [address] [place] [address] Jacques Srinivasan MD [address] [place] [address] 10/03/2024 9:40 AM EST Office Visit General Internal Medicine State Torie Retana [address] [place] [place] [address] Melissa Srinivasan MD [address] [place], [place] [address] 11/04/2024 9:30 AM EDT Office Visit Cardiology, [facility] [place] [facility] [place] [address] Joan Alexander PA-C 132 [place] [address] 02/26/2025 11:30 AM EDT Office Visit Urology, [facility] [address] [place] [address] Eladio Vidal MD 27 [facility] [place] [address] 05/14/2025 11:00 AM EDT Office Visit Rheumatology [facility] [address] [place] [address] Keo Leary MD [address] [place] [address] Scheduled Procedures Name Priority Associated Diagnoses Date/Ti [...] Additional history exists CKD PHOS USE SMARTSET 90065 12/24/202412/12, 08/31/2023, 05/29/2023, Additional history exists Albumin/Creatinine Ratio 04/09/2025 024, 11/28/2022, 01/18/2013, Additional history exists CKD HGB USE SMARTSET 31608 04/09/202504/09, 12/25/2023, 12/25/2023, Additional history exists DTap/Tdap [...] this encounter Medical Devices Implanted Type Area Printing Sales Representative Device Identifier Shelf Expiration Date Model / Serial / Lot Mesh Proloop Preshp 1.3x1.1in - [id number] Implanted:Qty: 1 on 02/03/2015 [place] [facility] [place]: Groin [employer] 11/12/2019 [id number] / / [id number] Description:small proloop me sh Mesh Prolite Nohole 2.5x5.5in - [id number] Implanted:Qty: 1 on 02/03/2015 by Millie Robin [place] [facility] [place]: Groin [employer] 07/13/2016 [id number] / / [id number] Description:mesh prolite no hole 2.5 in x 5.5 in (6.4 cm x 14 cm) Mesh Proloop Preshp 1.3x1.55in - [id number] Implanted:Qty: 1 on 02/03/2015 by Millie Robin [place] [facility] [place]: Groin [employer] 03/13/2019 [id number] / / [id number] Description:1.3 in x 1.55 in . (3.3 cm x 3.9 cm) proloop mesh Mesh Prolite Nohole 2.5x5.5in - [id number] Implanted:Qty: 1 on 02/03/2015 by Mlilie Robin MD [place] [facility] [place]: Groin [employer] 07/13/2016 [id number] / / [id number] Description:2.5 in x 5.5 in (6.4 cm [...] Power of Attor fredrick? No Care Teams Treasurer Savings Bank Relationship Specialty Start Date End Date Melissa Srinivasan MD 200 [facility] [place] [address] PCP - General Internal Medicine 12/29/21 documented as of this encounter
--- OUTSIDE RECORDS SUMMARY | 2024-07-08 12:53 | External Medical Summary | Summary of Care ---
Author Name Unknown Organization [facility] Address [address] [place] [address] Phone [phone] Care Team Providers Care Bed Rubber Name Role Phone Melissa Srinivasan MD Primary Care Provider [phone] Reason for Visit * Reason Onset Date Comments Medication Refill 07/01/2024 Encounter Details Date Type Department Care Team (Late st Contact Info) Description 07/01/2024 Telephone Rheumatology [place] [address] [email or web address] [place] [address] Keo Leary MD [address] [facility] [place] [address] Medication Refill Allergies Active Allergy Reactions Criticality Noted Date [...] 0.4 MG SUBLIndications: Coronary artery disease involving [place] coronary artery of [place] heart without angina pectoris One tablet under tongue if needed for chest pain. May repeat 3 times. If chest pain continues, call [phone] 25 Tab 1 03/20/20 18 Active Diclofenac [...] 23 Active Additional Information Patient taking differently:2 [place] Each NostrilPRN, Rhinitis, Reported on 02/15/2023 B-12 [...] Epididymitis 01/06/2015 03/15/2017 Overview (01/06/2015): Right side. 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 The 80 mg are odd shape and may not cut even. E [facility] [address] [place] JANSEN Thank you XENIA Irene * Telephone Encounter - Kathi Villeda [facility] - 07/03/2024 8:52 AM ESTSigned Prescriptions: Disp Refills Febuxostat 80 MG Oral Tablet (Uloric) 26 Tab*1 Sig: Take one-half tablet by mouth 3 to 4 times weeklyAuthorizing Provider: KEO LEARY User: KATHI VILLEDA * Telephone Encounter - Kathi Villeda [facility] - 07/03/2024 8:50 AM EST Rheumatology: Refill Request(s) Per review of the refill parameters, Medication was refilled Updated sig per last visit note "Okay to move Uloric to 3 or 4 times a week-40 mg dose " Kathi Villeda [facility] Clinical Pharmacist Rheumatology Department 07/03/2024,8:50 AM * [...] 11:40 AM EST Office Visit Nephrology, [facility] [address] [place] [address] Jacques Srinivasan MD [address] [place] [address] 10/03/2024 9:40 AM EST Office Visit General Internal Medicine [facility] [address] [place] [address] Melissa Srinivasan MD [address] [facility] [place] [address] 11/04/2024 9:30 AM EDT Office Visit Cardiology, [facility] [address] [facility] [place] [address] Joan Alexander PA-C [address] [place] [address] 02/26/2025 11:30 AM EDT Office Visit Urology, [facility] [address] [facility] [place] [address] Eladio Vidal MD [address] [place] [address] 05/14/2025 11:00 AM EDT Office Visit Rheumatology [address] [place] [address] Keo Leary MD [facility] [place] [facility] [place] [address] Scheduled Procedures Name Priority Associated Diagnoses Date/Ti [...] 12/25/2023, Additional history exists Colonoscopy 11/19/2024 11/20/2023, 03/2024, 04/28/2020, Additional history exists CKD PHOS USE SMARTSET 47684 12/24/202412/12, 08/31/2023, 05/29/2023, Additional history exists Albumin/Creatinine Ratio 04/09/2025 024, 11/28/2022, 01/18/2013, Additional history exists CKD HGB USE SMARTSET 33859 04/09/202504/09, 12/25/2023, 12/25/2023, Additional history exists DTap/Tdap [...] this encounter Medical Devices Implanted Type Area Clinical Pharmacy Coordinator Device Identifier Shelf Expiration Date Model / Serial / Lot Mesh Proloop Preshp 1.3x1.1in - [id number] Implanted:Qty: 1 on 02/03/2015 by Millie Robin MD [place] [facility] [place] Right: Groin [employer] 11/12/2019 [id number] / / [id number] Description:small proloop me sh Mesh Prolite Nohole 2.5x5.5in - [id number] Implanted:Qty: 1 on 02/03/2015 by Millie Robin MD at [place] [facility] [place] Right: Groin [employer] 07/13/2016 [id number] / / [id number] Description:mesh prolite no hole 2.5 in x 5.5 in (6.4 cm x 14 cm) Mesh Proloop Preshp 1.3x1.55in - [id number] Implanted:Qty: 1 on 02/03/2015 by Millie Robin MD at [place] [facility] [place] Left: Groin [employer] 03/13/2019 [id number] / / [id number] Description:1.3 in x 1.55 in . (3.3 cm x 3.9 cm) proloop mesh Mesh Prolite Nohole 2.5x5.5in - [id number] Implanted:Qty: 1 on 02/03/2015 by Millie Robin MD at [place] [facility] [place] Left: Groin [employer] 07/13/2016 [id number] / / [id number] Description:2.5 in x 5.5 in (6.4 cm [...] Power of Attor fredrick? No Care Teams Bed Rubber Relationship Specialty Start Date End Date Melissa Srinivasan MD [address] [place] [address], [place] [address] PCP - General Internal Medicine 12/29/21 documented as of this encounter
--- OUTSIDE RECORDS SUMMARY | 2024-07-08 12:54 | External Medical Summary | Summary of Care ---
Author Name Unknown Organization [facility] Address [address] [place] [address] Phone [phone] Care Team Providers Care Chief Dispatcher Name Role Phone Melissa Srinivasan MD Primary Care Provider [phone] Reason for Visit * Reason Comments Follow Up Encounter Details Date Type Department Care Team (Latest Contact Info) Description 06/19/2024 8:20 AM EST Office Visit General Internal Medicine [facility] [place] [place] [address] [employer] [address] Melissa Srinivasan MD [address] [facility] [place] [address] Swelling of right upper extremity*; Stage 3b chronic kidney disease (HCC); Primary osteoarthritis of both shoulders; Primary osteoarthritis of both hips; Presence of bare metal stent in right coronary artery; PERIPHERAL NEUROPATHY; Incidental lung nodule, > 3mm and < 8mm; HTN, goal below 140/90; History of placement of stent in LAD coronary artery; History of Clostridium difficile colitis; Generalized osteoarthritis; Dyslipidemia, goal LDL below 70; Diverticulitis of colon; 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; Localized edema; BPH with obstruction/lower urinary tract symptoms; Beta-blockers contraindicated due to bradycardia; 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); Idiopathic chronic gout of multiple sites without tophus; Impingement syndrome of both shoulders; Sensorineural hearing loss (SNHL) of both ears; Thyroid nodule; Raynaud's disease without gangrene; Heart failure, unspecified HF chronicity, unspecified heart failure type (HCC); Impaired fasting glucose Allergies Active Allergy Reactions [...] as of this encounter (statuses as of 06/19/2024) Medications Medication Sig Dispensed Refills Start Date End Date Status ASPIRIN 81 MG PO TABS 1 TABLET DAILY 04/08/2014 Active nitroglycerin (NITROSTAT) 0.4 MG SUBLIndications:Co ronary artery disease involving chinik coronary artery of chinik heart without angina pectoris One tablet under tongue if needed for chest pain. May repeat 3 times. If chest pain continues, call [phone] Tab 1 03/20/2018 Active Diclofenac Sodium 1 % External Gel (Voltaren)Indicati ons:Pain in joint of left shoulder,Pain of left upper arm Apply topically to affected area 2 g 2 times a day as needed for Pain. Apply to left shouder and arm 150 g 5 05/30/2022 Active Fluticasone Propionate 50 MCG/ACT Nasal Suspension (Flonase)Indicatio ns:Chronic pansinusitis Administer 2 Sprays into each nostril in the morning. 16 g 2 11/28/2022 Active Additional Information Patient taking differently:2 [place] Each NostrilPRN, Rhinitis, Reported on 02/15/2023 B-12 1000 MCG Oral LozengeIndications :B12 deficiency Take 1 daily 02/21/2023 Active Atorvastatin Calcium 40 MG Oral Tablet (Lipitor)Indicatio ns:Hypercholestere joseph Take 1 Tablet by mouth in the morning. 90 Tablet 1 07/01/2023 Active Lisinopril 40 MG Oral Tablet TAKE 1 TABLET BY MOUTH ONCE DAILY IN THE MORNING 90 Tablet 3 11/02/2023 Active Febuxostat 80 MG Oral Tablet (Uloric) Take 1 tablet by mouth 3 times weekly 39 Tablet 1 01/12/2024 Active Finasteride 5 MG Oral Tablet (Proscar) Take 1 Tablet by mouth in the morning. 90 Tablet 3 02/27/2024 Active Tamsulosin HCl 0.4 MG Oral Capsule (Flomax)Indication s:BPH with obstruction/lower urinary tract symptoms Take 1 Capsule by mouth in the morning. 90 Capsule 3 02/27/2024 Active hydrALAZINE HCl 50 MG Oral Tablet (Apresoline) Take 1 Tablet by mouth in the morning and 1 Tablet at noon and 1 Tablet before bedtime. 270 Tablet 2 04/15/2024 Active Additional Information Patient taking differently:50 mg OralBID (.AM/PM), Reported on 04/24/2024 Furosemide 20 MG Oral Tablet (Lasix)Indications :Edema, unspecified type Take 1 tablet by mouth only NEEDED for weight gain of 3-5 lbs or increased swelling. 15 Tablet 1 04/24/2024 Active Pantoprazole Sodium 40 MG Oral Tablet Delayed Release (Protonix)Indicati ons:GERD (gastroesophageal reflux disease) Take 1 tablet by mouth once daily 90 Tablet 1 05/14/2024 Active Cefadroxil 500 MG Oral Capsule (Duricef) 1 Capsule. 09/06/2023 4 Discontinue d(End of Procedure) documented as of this encounter (statuses as of 06/19/2024) Active Problems Problem Noted Date Diagnosed Date [...] as of this encounter (statuses as of 06/19/2024) Resolved Problems Problem Noted Date Diagnosed Date [...] paraproteinemias 11/16/201003/31 ADVANCE DIRECTIVE INFORMATION 01/21/2005 06/17/2024 Overview: Pt given advanced directive on previous appointment. documented as of this encounter (statuses as of 06/19/2024) Immunizations Name Administration Dates Next Due COVID-19 [...] uit: 06/20/1977 Smokeless Tobacco: Never Comments:Quit about Alcohol Use Standard Drinks/Week Comments Not Currently [...] Sign Reading Time Taken Comments Blood Pressure 126/78 06/19/2024 8:23 AM EST Pulse 65 06/19/2024 8:23 AM EST Temperature 36.4 C (97.6 F) 06/19/2024 8:23 AM ES T Respiratory Rate - - Oxygen Saturation 97% 06/19/2024 8:23 AM EST Inhaled Oxygen Concentration - - Weight 75.2 kg (165 lb 11.2 oz) 06/19/2024 8:23 AM EST Height - - Body Mass Index 25.95 04/09/2024 1:18 PM EDT documented in this encounter Progress Notes * Melissa Srinivasan MD - 06/19/2024 8:31 AM EST Images from the original note were not included. History of Present Illness Henrry Aldridge is a 83 year old male that presents for Follow Up 83 year old male with a history of HTN, Gout, NSTMI, RUL nodule, recurrent diverticulitis treated with sigmoidectomy, Pancreatic Cyst, and CKD stage III presents here for recheck. Acute concern :- -swelling of right hand-1 month. No pain, no fall recently. He has been dealing with rotator cuff tear/shoulder issues for about a year and feels swelling is coming from the same issue. Has been planned for surgery end of this month Interimmedical history : Swelling of the leg about the same per patient. Seen by editor greeting card who agreed to take Lasix 3 times a week but he has not taken it until a week ago but now stopped that as well. Seen by Rheumatology as well Watching diet and exercise : Trying to Routine labs : Up-to-date as also had blood work yesterday and hospital for surgery Routine HM : Declines vaccines Chronic medical problem: reviewed and stable Physical Exam Vitals: 06/19/24 0823 Temp: 36.4 C (97.6 F) Pulse: 65 SpO2: 97% BP: 126/78 Physical Exam Vitals and nursing note reviewed. Constitutional: General: He is not in acute distress. Appearance: He is normal weight. HENT: Head: Normocephalic. Right Ear: There is no impacted cerumen. Left Ear: There is no impacted cerumen. Cardiovascular: Rate and Rhythm: Normal rate and regular rhythm. Pulmonary: Effort: Pulmonary effort is normal. No respiratory distress. Breath sounds: No wheezing. Abdominal: General: Bowel sounds are normal. There is no distension. Palpations: Abdomen is soft. There is no mass. Musculoskeletal: General: Swelling (Swelling in the right upper extremities, no tenderness) present. No tenderness or signs of injury. Cervical back: Neck supple. No rigidity. Skin: General: Skin is warm. Findings: No lesion or rash. Neurological: Mental Status: He is alert. Psychiatric: Mood and Affect: Mood normal. I have reviewed the following results: Assessment and Plan Swelling of right upper extremity Need to rule out DVT specially due to upcoming surgery - VASC DUPLEX VENOUS UE UNILAT; Future Stage 3b chronic kidney disease (HCC) Being followed by owner e commerce company Avoid NSAID - COMPREHENSIVE METABOLIC PANEL; Future Primary osteoarthritis of both shoulders Being followed by ortho and having surgery for right shoulder Primary osteoarthritis of both hips Presence of bare metal stent in right coronary artery PERIPHERAL NEUROPATHY Incidental lung nodule, > 3mm and < 8mm HTN, goal below 140/90 Stable Continue current treatment as directed History of placement of stent in LAD coronary artery History of Clostridium difficile colitis Generalized osteoarthritis Dyslipidemia, goal LDL below 70 - COMPREHENSIVE METABOLIC PANEL; Future - LIPID PANEL WITH DIRECT LDL IF TG IS HIGH; Future Diverticulitis of colon 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 Localized edema - VASC DUPLEX VENOUS UE UNILAT; Future BPH with obstruction/lower urinary tract symptoms Beta-blockers contraindicated due to bradycardia 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) Idiopathic chronic gout of multiple sites without tophus Followed by pattern duplicator-follow as directed 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 documented in this encounter Nursing Notes * Ca Hogan Student - 06/19/2024 8:22 AM EST Pt here for a check up. No concerns today. documented in this encounter Plan of Treatment Upcoming Encounters Date Type Department Care Team (Late st Contact Info) Description 07/03/2024 11:00 AM EST Imaging Vascular Lab, [facility] 2nd Floor, [place] [address] [facility] [place] [address] 09/11/2024 11:40 AM EST Office Visit Nephrology, [facility] [address] [facility] [place] [address] Jacques Srinivasan MD [address] [facility] [place] [address] 10/03/2024 9:40 AM EST Office Visit General Internal Medicine [facility] [address] [facility] [place], [place] [address] Melissa Srinivasan MD [address] [facility] [address] [place], [place] [address] 11/04/2024 9:30 AM EDT Office Visit Cardiology, [facility] [address] [place] [address] Joan Alexander PA-C 132 [facility] [place] [address] 02/26/2025 11:30 AM EDT Office Visit Urology, [facility] [address] [facility] [place] [address] Eladio Vidal MD [address] [facility] [place] [address] 05/14/2025 11:00 AM EDT Office Visit Rheumatology [place] [id number] [facility] [place], [place] [address] Saji Mcghee MD [address] [facility] [place], [place] [address] Scheduled Orders Name Type Priority Associated Diagnoses Orde r Schedule COMPREHENSIVE METABOLIC PANEL Lab Routine Stage 3b chronic kidney disease (HCC) Dyslipidemia, goal LDL below 70 Expected: 08/19/2024, Expires: 06/19/2025 HEMOGLOBIN A1C Lab Routine Impaired fasting glucose Expected: 08/19/2024, Expires: 06/19/2025 LIPID PANEL WITH DIRECT LDL IF TG IS HIGH Lab Routine Dyslipidemia, goal LDL below 70 Expected: 08/19/2024, Expires: 06/19/2025 VASC DUPLEX VENOUS UE UNILAT Medical Imaging STAT Swelling of right upper extremity Localized edema Expected: 06/19/2024, Expires: 07/19/2025 Scheduled Procedures Name Priority Associated Diagnoses Date/Ti [...] Additional history exists CKD PHOS USE SMARTSET 68617 12/24/202412/12, 08/31/2023, 05/29/2023, Additional history exists Albumin/Creatinine Ratio 04/09/2025 024, 11/28/2022, 01/18/2013, Additional history exists CKD HGB USE SMARTSET 89968 04/09/202504/09, 12/25/2023, 12/25/2023, Additional history exists DTap/Tdap [...] this encounter Medical Devices Implanted Type Area Technical Business Systems Analyst Device Identifier Shelf Expiration Date Model / Serial / Lot Mesh Proloop Preshp 1.3x1.1in - [id number] Implanted:Qty: 1 on 02/03/2015 by Millie Robin MD at [place] [facility] Right: Groin [employer] 11/12/2019 [id number] / / [id number] Description:small proloop me sh Mesh Prolite Nohole 2.5x5.5in - [id number] Implanted:Qty: 1 on 02/03/2015 by Millie Robin MD at [place] [facility] Right: Groin [employer] 07/13/2016 [id number] / / [id number] Description:mesh prolite no hole 2.5 in x 5.5 in (6.4 cm x 14 cm) Mesh Proloop Preshp 1.3x1.55in - [id number] Implanted:Qty: 1 on 02/03/2015 by Millie Robin MD at OR [facility] Left: Groin [employer] 03/13/2019 [id number] / / [id number] Description:1.3 in x 1.55 in . 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 Primary localized osteoarthrosis, pelvic region and thigh Presence of bare metal stent in right coronary artery Postsurgical percutaneous transluminal coronary angioplasty status PERIPHERAL NEUROPATHY Idiopathic progressive polyneuropathy Incidental lung nodule, > 3mm and < 8mm Solitary pulmonary nodule HTN, goal below 140/90 Unspecified essential hypertension History of placement of stent in LAD coronary artery Postsurgical percutaneous transluminal coronary angioplasty status History of Clostridium difficile colitis Generalized osteoarthritis Generalized osteoarthrosis, unspecified site Dyslipidemia, goal LDL below 70 Other and unspecified hyperlipidemia Diverticulitis of colon Diverticulitis of colon (without mention of hemorrhage) 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 Localized edema Edema BPH with obstruction/lower urinary tract symptoms Hypertrophy of prostate with urinary obstruction and other lower urinary tract symptoms (LUTS) Beta-blockers contraindicated due to bradycardia 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) 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 No Care Teams Chief Dispatcher Relationship Specialty Start Date End Date Melissa Srinivasan MD [address] [place] [address] PCP - General Internal Medicine 12/29/21 documented as of this encounter
--- OUTSIDE RECORDS SUMMARY | 2024-07-08 12:54 | External Medical Summary | Summary of Care ---
Author Name Unknown Organization [facility] Address [address] [place] [address] Phone [phone] Care Team Providers Care Motion Picture Cameraman Name Role Phone Melissa Srinivasan MD Primary Care Provider [phone] Reason for Visit * Reason Onset Date Comments Medication Refill 06/28/2024 Encounter Details Date Type Department Care Team (Late st Contact Info) Description 06/28/2024 Refill General Internal Medicine [facility] 200 [facility] [place] [address] Melissa Srinivasan MD 200 [facility] [place] [address] Hypercholesteremia Allergies Active Allergy Reactions Criticality Noted Date [...] as of this encounter (statuses as of 07/01/2024) Medications ASPIRIN 81 MG PO TABS 1 TABLET DAILY 04/08/20 14 Active nitroglycerin (NITROSTAT) 0.4 MG SUBLIndications: Coronary artery disease involving wales coronary artery of wales heart without angina pectoris One tablet under tongue if needed for chest pain. May repeat 3 times. If chest pain continues, call [phone] Tab 1 03/20/20 18 Active Diclofenac [...] 23 Active Additional Information Patient taking differently:2 [place] Each NostrilPRN, Rhinitis, Reported on 02/15/2023 B-12 1000 MCG Oral LozengeIndicatio ns:B12 deficiency Take 1 daily 02/22/20 23 Active Lisinopril 40 MG Oral Tablet TAKE 1 TABLET BY MOUTH ONCE DAILY IN THE MORNING 90 Tablet 3 11/02/19 24 Active Febuxostat 80 MG Oral Tablet (Uloric) Take 1 tablet by mouth 3 times weekly 39 Tablet 1 01/12/20 24 Active Finasteride 5 MG Oral Tablet [...] morning. 90 Tablet 1 07/01/20 24 Active Atorvastatin Calcium 40 MG Oral Tablet (Lipitor)Indicat ions:Hypercholes teremia Take 1 Tablet by mouth in the morning. 90 Tablet 1 07/01/20 23 024 Discontin ued(Refil l) documented as of this encounter (statuses as of 07/01/2024) Active Problems Problem Noted Date Diagnosed Date [...] as of this encounter (statuses as of 07/01/2024) Resolved Problems Problem Noted Date Diagnosed Date [...] as of this encounter (statuses as of 07/01/2024) Immunizations Name Administration Dates Next Due COVID-19 [...] encounter Miscellaneous Notes * Telephone Encounter - Geovanny Rand [facility] - 07/01/2024 7:27 AM ESTSigned Prescriptions: Disp Refills Atorvastatin Calcium 40 MG Oral Tablet (Li*90 Tab*1 Sig: Take 1 Tablet by mouth in the morning.Authorizing Provider: Anais SRINIVASAN User: GEOVANNY RAND-- documented in this encounter Plan of Treatment Upcoming Encounters Date Type Department Care Team (Late st Contact Info) Description 07/03/2024 11:00 AM EST Imaging Vascular Lab, [facility] 2nd [facility] [address] [facility] [place] [address] 09/11/2024 11:40 AM EST Office Visit Nephrology, [facility] [address] [place] [address] Jacques Srinivasan MD [address] [place] [address] 10/03/2024 9:40 AM EST Office Visit General Internal Medicine [facility] [address] [place] [address] Melissa Srinivasan MD [address] [place], [place] [address] 11/04/2024 9:30 AM EDT Office Visit Cardiology, [facility] [address] [facility] [place] [address] Joan Alexander PA-C 132 [facility] [place] [address] 02/26/2025 11:30 AM EDT Office Visit Urology, [facility] [address] [facility] [place] [address] Eladio Vidal MD [address] [facility] [place] [address] 05/14/2025 11:00 AM EDT Office Visit Rheumatology [facility] [address] [place], [place] [address] Saji Mcghee MD [address] [place], [place] [address] Scheduled Procedures Name Priority Associated Diagnoses Date/Ti [...] Additional history exists CKD PHOS USE SMARTSET 53312 12/24/202412/12, 08/31/2023, 05/29/2023, Additional history exists Albumin/Creatinine Ratio 04/09/2025 024, 11/28/2022, 01/18/2013, Additional history exists CKD HGB USE SMARTSET 97455 04/09/202504/09, 12/25/2023, 12/25/2023, Additional history exists DTap/Tdap [...] this encounter Medical Devices Implanted Type Area Podiatric Medicine Doctor Device Identifier Shelf Expiration Date Model / Serial / Lot Mesh Proloop Preshp 1.3x1.1in - [id number] Implanted:Qty: 1 on 02/03/2015 by Millie Robin MD at [place] [facility] Right: Groin [employer] 11/12/2019 [id number] / / [id number] Description:small proloop me sh Mesh Prolite Nohole 2.5x5.5in - [id number] Implanted:Qty: 1 on 02/03/2015 by Millie Robin MD at [place] [facility] Right: Groin [employer] 07/13/2016 [id number] / / [id number] Description:mesh prolite no hole 2.5 in x 5.5 in (6.4 cm x 14 cm) Mesh Proloop Preshp 1.3x1.55in - [id number] Implanted:Qty: 1 on 02/03/2015 by Millie Robin MD at [place] [facility] Left: Groin [employer] 03/13/2019 [id number] / / [id number] Description:1.3 in x 1.55 in . (3.3 cm x 3.9 cm) proloop mesh Mesh Prolite Nohole 2.5x5.5in - [id number] Implanted:Qty: 1 on 02/03/2015 by Millie Robin MD at [place] [facility] Left: Groin [employer] 07/13/2016 [id number] / / [id number] Description:2.5 in x 5.5 in (6.4 cm x 14 cm) mesh prolite, no hole documented as of this encounter Visit Diagnoses Diagnosis Hypercholesteremia Pure hypercholesterolemia documented in this encounter Advance Directives * [...] Power of Attor fredrick? No Care Teams Motion Picture Cameraman Relationship Specialty Start Date End Date Melissa Srinivasan MD [address] [facility] [place] [address] PCP - General Internal Medicine 12/29/21 documented as of this encounter
--- NOTE | 2024-07-08 13:05 | Operative Report ---
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 Post-Op Diagnosis: Cuff tear arthropathy of the right shoulder with tendinopathy long head of the biceps tendon I identified the patient and participated in the time-out.: Yes Procedure Operation Date: 07/08/24 11:00 Actual Procedures p Right Total Shoulder Arthroplasty Reverse(Right) with open biceps tenodesis as a distinct and separate procedure (modifier 59)- Saji Tobar DO Surgeon Saji Tobar DO Professor Of Business Administration None Estimated Blood Loss 200 Findings Consistent with Post-Op Diagnosis Specimens Right humeral head Description of Procedure A CPT code modifier 59: The long head of the biceps tendon was enlarged and inflamed consistent with tendinopathy. A tenodesis was opted. This was a separate and distinct portion of the procedure. For these reasons, a CPT code modifier 59 will be added to this case. Implants used: I used a [employer] Comprehensive reverse total shoulder arthroplasty system with a size 11 press fit micro humeral stem, a +6 offset humeral tray and a +3 retentive humeral bearing, a 25 mm small augment baseplate with a 6.5 mm central screw and superior and inferior locking screws, and a size 40 mm eccentric glenosphere. Henrry arrived at [facility] for the above procedure. He was seen in the preoperative holding area and the operative extremity was identified and signed. He was given a preoperative antibiotic, TXA, and an interscalene nerve block. He was taken back to the operating room, laid on table in supine position, and put under general anesthesia. He was then put into the beachchair position. The shoulder was then prepped and draped in sterile fashion. A timeout was done and the patient and the operative extremity was properly ident ified. A deltopectoral approach was used. Dissection was taken down through the fascia and the deltoid was retracted laterally and the conjoined tendon was retracted medially. The anterior shoulder was exposed. The biceps groove was opened up and the biceps tendon was examined extensively. The biceps tendon demonstrated enlargement and inflammatory changes consistent with longstanding inflammation in the context of osteoarthritis and cuff arthropathy. The long head of the biceps tendon was then tenodesed to the upper border of the pectoralis major. This was a separate and distinct portion of the procedure. The subscapularis was then directly released off the lesser tuberosity with a peel technique. The inferior capsule was released and the humeral head was dislocated. A canal finding reamer was sent down the center of the humeral canal. Sequential reaming up to a size 11 reamer was done. Off that reamer, a proximal humeral resection guide was placed. The proximal humerus was resected at 135 of inclination and 25 of retroversion. Osteophytes were then removed and the glenoid was exposed. Time was spent doing a complete capsular and labral release. The glenoid guide was then placed in the inferior aspect of the glenoid. A 3.2 mm Steinmann pin was then placed into the glenoid vault at 10 of inclination. The glenoid baseplate was then reamed. The final size 25 mm augment baseplate was then impacted in the place. A 6.5 mm central screw was then placed followed by superior and inferior locking screws. A 40 mm eccentric glenosphere was then impacted into place. Surrounding soft tissues were then injected with 100 cc an orthopedic pain control cocktail. The proximal humerus was then exposed. Sequential broaching of the humerus up to a size 11 broach was done. Off that broach a +6 offset and +3 retentive humeral tray was trialed. The shoulder was then reduced, brought through a full range of motion, and felt to be stable. The shoulder was then dislocated and the broach was removed. The final size 11 micro press-fit humeral stem was then impacted into place. A +3 retentive humeral bearing was then snapped onto a +6 offset humeral tray. The humeral tray was then impacted onto the humeral stem. The shoulder was once again reduced, brought through a full range of motion, and felt to be stable. The subscapularis was poor quality and unable to be repaired. A dilute betadyne lavage was then done for 3 minutes. The joint was then irrigated with normal saline solution. Hemostasis was obtained. The interval was closed with 2-0 Vicryl suture. The skin was then closed with 2-0 Vicryl and deborah. A Silverlon dressing was placed and the arm was rested in a regular arm sling. He was then extubated and transferred to a hospital bed. He taken to the postanesthesia care unit in stable condition. He tolerated the procedure well. I attest to the content of the Intraoperative Record and any orders documented therein. Any exceptions are noted below.
--- NOTE | 2024-07-08 13:40 | XRay Report ---
EXAM: Radiographs of the Right Shoulder Complete 2 Views INDICATION: Postoperative assessment. TECHNIQUE: 2 views of the right shoulder. COMPARISON: No relevant prior studies available. FINDINGS: Bones/joints: Shoulder arthroplasty components well-seated and grossly intact. No fracture, subluxation or dislocation. Soft tissues: Expected postoperative periarticular soft tissue swelling and gas noted. IMPRESSION: Satisfactory appearance of right shoulder arthroplasty. ACT 112: Negative or not required by law. Electronically signed by Aylin Long 07-08-2024 13:40 PM
--- NOTE | 2024-07-08 13:48 | Anesthesiology Progress Note ---
Date of Service July 08, 2024 Anesthesia Post Procedure Vital Signs Vital Signs: Temp Pulse Resp BP Pulse Ox O2 Del Method O2 Flow Rate 07/08/24 13:45 68 15 153/85 H 94 Room Air 07/08/24 13:35 36.4 C L 69 15 151/81 H 93 Room Air 07/08/24 13:25 75 15 149/88 H 99 Oxymask 8 07/08/24 13:15 77 16 140/75 100 Oxymask 8 07/08/24 13:07 36.1 C L 94 H 16 140/75 98 Oxymask 8 07/08/24 10:05 36.4 C L 84 20 168/106 H 99 Room Air Pain Intensity Right Shoulder: Pain Intensity: 0 Transfer of Care Handoff Completed per policy Notes Mental Status: alert / awake / arousable Patient Amnestic to Procedure: Yes Nausea / Vomiting: adequately controlled Pain: adequately controlled Airway Patency, RR, SpO2: stable & adequate BP & HR: stable & adequate Hydration State: stable & adequate Anesthetic Complications: no major complications apparent
[2024-07-08] MEDS ORDERED: ALBUTEROL HFA 8 GM INHALER INH PRN (14:04)
[2024-07-08] MEDS ORDERED: NITROGLYCERIN SL 0.4 MG/TAB TAB SL PRN (14:04)
[2024-07-08] MEDS ORDERED: bisacodyL 10 MG SUPP PR PRN (14:04)
[2024-07-08] MEDS ORDERED: METOCLOPRAMIDE HCL INJ 5 MG/ML 2 ML VIAL IV PRN (14:04)
[2024-07-08] MEDS ORDERED: MAGNESIUM HYDROXIDE SUSP 30 ML UDC PO PRN (14:04)
[2024-07-08] MEDS ORDERED: HYDROmorphone INJ 0.5 MG/0.5 ML SYR IV PRN (14:04)
[2024-07-08] MEDS ORDERED: NALOXONE HCL 0.4 MG/1 ML VIAL/CARP IV PRN (14:04)
[2024-07-08] MEDS ORDERED: oxyCODONE HCL IR 5 MG TAB (IMMEDIATE RELEASE) PO PRN (14:04)
[2024-07-08] MEDS: KETOROLAC TROMETHAMINE 15 MG/ML VIAL IV SCH (14:46)
[2024-07-08] MEDS: ASPIRIN 81 MG ECTAB PO SCH (15:16)
[2024-07-08] MEDS: hydrALAZINE TAB 50 MG TAB PO SCH (15:16)
[2024-07-08] MEDS: ceFAZolin 1000MG 1,000 MG/7.5 ML SYR IV SCH (18:37)
[2024-07-08] MEDS: DOCUSATE SODIUM 100 MG CAP PO SCH (21:20)
[2024-07-08] MEDS: SENNA 8.6 MG TAB PO SCH (21:20)
[2024-07-09 03:19] VITALS: RESP 18
[2024-07-09] MEDS: dexAMETHasone 4 MG TAB PO SCH (07:41)
[2024-07-09] MEDS: ATORVASTATIN 40 MG TAB PO SCH (07:41)
[2024-07-09] MEDS: lisinopril 40 MG TAB PO SCH (07:41)
[2024-07-09] MEDS: PANTOprazole 40 MG TAB PO SCH (07:41)
[2024-07-09] MEDS: MULTIVITAMIN TAB PO SCH (07:42)
[2024-07-09] MEDS: TAMSULOSIN HCL 0.4 MG CAP PO SCH (07:42)
[2024-07-09] MEDS: FEBUXOSTAT 40 MG TABLET PO SCH (07:42)
[2024-07-09] MEDS: FINASTERIDE 5 MG TAB PO SCH (07:43)
--- NOTE | 2024-07-09 08:00 | Orthopedic Progress Note ---
Date of Service July 09, 2024 Assessment & Plan (1) Status post reverse total replacement of right shoulder: Overall he is doing fairly well. Is not having much pain in the right shoulder. He will be seen by physical therapy today for ambulation and range of motion exercises. Therapy can adjust his sling. He can be discharged to home later today. He will follow-up orthopedics in 2 weeks. Jessica Sales was seen and examined at bedside this morning. Overall he is doing very well. He is not having much pain in the right shoulder. He has been up and ambulating. He has no complaints.. Review of Systems All systems reviewed & are unremarkable except as noted in HPI & below. Physical Exam On physical exam of the right shoulder, the dressing is clean and dry. He is wearing his sling as instructed. He has minimal motion of his hand because the block is still in effect.. Results & Data Results & Data Laboratory Results . Diagnostic Findings Postoperative x-rays of the right shoulder show the prosthesis to be in anatomic alignment without any evidence of fracture, his cage, or loosening.. PG Care Time/CCT Total # of Minutes Spent Total Time Spent with Patient: Total time spent is greater than 50% in coordination of care (as documented) at patient's floor/unit and/or counseling patient: Coding Level of Care Code 06613 Post Operative Follow-Up Diagnoses Status post reverse total replacement of right shoulder Z96.611
--- NOTE | 2024-07-09 08:01 | Discharge Summary ---
Date of Service July 09, 2024 Admission HPI (Per Admitting) Henrry is a pleasant 83-year-old male who I did a left reverse shoulder arthroplasty on about 9 months ago. He is doing fairly well with that. He does not have much pain. Unfortunately, he is dealing with severe pain of his right shoulder. He cannot do anything away from his body or up overhead. 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 After failed conservative treatment, he has elected to proceed with a right reverse shoulder arthroplasty. Admission Exam (Per Admitting) On physical exam of the right shoulder, he has decreased range of motion. He has crepitus throughout.. Principal Diagnosis Same as "Discharge Diagnosis" noted below under Discharge Instructions. Discharge Exam On physical exam of the right shoulder, the dressing is clean and dry. He is wearing his sling as instructed. He has minimal motion of his hand because the block is still in effect.. Discharge Data Procedures Performed Operation Date: 07/08/24 11:00 Actual Procedures p Right Total Shoulder Arthroplasty Reverse(Right) - Saji Tobar DO Ordered Studies 07/08/24 05:00 US - OR guided needle placemen Routine Hospital Course (1) Status post reverse total replacement of right shoulder: On July 08, 2024 Henrry arrived at [facility] and underwent a right reverse shoulder replacement without complication. He had a general anesthetic and a right interscalene nerve block. Postoperatively he was placed in a sling and transferred to the general orthopedic floors. His hospital course was uneventful. On postop day #1, his vital signs were stable and his pain was well-controlled. He was able to participate well with physical therapy doing ambulation and range of motion exercises. He was then discharged to home. He will follow-up orthopedics in 2 weeks. PG Care Time/CCT Total # of Minutes Spent Total Time Spent with Patient: Total time spent is greater than 50% in coordination of care (as documented) at patient's floor/unit and/or counseling patient: Discharge Plan Discharge Items Patient Disposition: Home - Self-Care Reason For Visit: RIGHT SHOULDER REPLACEMENT Discharge Diagnosis: Right reverse shoulder replacement Activity: Per Instructions section Non-emergency contact: Surgeon Call non-emergency contact if: your wound has increased redness and your wound has increased drainage Follow-up/Referrals: Melissa Srinivasan MD [Primary Care Provider] - Diet: Regular Addtl Attending Provider Instructions: Activity and Therapy Recommendations: * If you are using [facility] then therapy will be provided at your home until they feel you have accomplished all of your goals. * If you are using [facility] then Physical Therapy will be provided until they feel you are ready to start Outpatient Physical Therapy. * If you are not using home therapy then Outpatient Physical Therapy should start about 3-5 days from your day of surgery. Therapy will last about 8-12 weeks * Wear your sling for 3 weeks, unless otherwise instructed. You may remove your sling to shower and to dress, but otherwise, you should be in your sling at all times, including while sleeping * The shoulder replacement is very stable and you can use your hand while in the sling * You were shown a series of exercises in the hospital. Do these exercises daily including the exercises you were shown in physical therapy. Medications: * Narcotic You will likely be sent home from the hospital with a prescription for the narcotic pain medication that worked best throughout your stay. * Cefadroxil -take the antibiotic twice a day for 10 days to help prevent infection. * Other medications may be prescribed for specific circumstances. If you have any questions, please call the office at . * Resume previous home medications unless otherwise instructed Dressing Care: Leave the Silverlon dressing in place for 7 days. After 7 days you may remove the dressing. If the incision is not draining then you may leave the deborah open to air. If there is a little bit of drainage or if the deborah are getting stuck on your clothing then cover the incision with a dry dressing. The deborah will be removed at your 2 week follow-up appointment. Showering: You may shower with the Silverlon dressing in place. Do not let the shower spray hit the dressing directly. Pat the Silverlon dressing dry. If the dressing becomes wet underneath, then simply remove the dressing. Keep the incision dry until you are 7 days out from the day of surgery. After 7 days you may remove the Silverlon dressing and shower with the deborah exposed. Let soapy water run over the deborah and pat them dry. Do not scrub or soak the incision. Diet: You may resume your previous diet. Things To Watch For: * Drainage from the incision site that occurs more than one week after your surgery. * Increased redness at the incision site. * Fever above 102 degrees Fahrenheit. * Unusual chest pain or shortness of breath. * Call [facility] at with any of the above problems Follow-Up Visit: Follow-up with Dr. Tobar's office 2-3 weeks after your day of surgery. We will remove your deborah and answer any questions. If you have any additional questions or concerns, Dr Tobar is usually in the office at the same time and will be available An appointment was probably scheduled when you signed-up for surgery in the office. If you have any questions call More detailed instructions as well as Frequently Asked Questions were provided in a folder by our office when you signed-up for surgery. Please review these instructions when you get home. If you have any further questions or concerns, please feel free to call the office at [phone] Pending Studies at Discharge: No Stand-Alone Forms: My [facility] Medications and DC Order Prescriptions: New oxycodone 5 mg tablet 5 mg PO Q6H PRN (Reason: pain) Qty: 30 0RF cefadroxil 500 mg capsule 500 mg PO BID 10 Days Qty: 20 0RF Continued atorvastatin 40 mg Tablet 40 mg PO QAM aspirin 81 mg Tablet,Delayed Release (Dr/Ec) 81 mg PO UD Rx Instructions: MON, WED & FRI. tamsulosin 0.4 mg Capsule 0.4 mg PO QAM pantoprazole [Protonix] 40 mg Tablet,Delayed Release (Dr/Ec) 40 mg PO QAM nitroglycerin 0.4 mg Tablet, Sublingual 0.4 mg sublingual UD PRN (Reason: Chest Pain) hydralazine 50 mg Tablet 50 mg PO TID lisinopril 40 mg Tablet 40 mg PO QAM finasteride 5 mg Tablet 5 mg PO QAM febuxostat [Uloric] 80 mg Tablet 80 mg PO QAM albuterol sulfate 90 mcg/actuation HFA aerosol inhaler 2 puff INHALATION Q6H PRN (Reason: CONGESTION/COUGH/WHEEZING) diclofenac sodium 1 % Gel 4 g TOPICAL BID PRN (Reason: Pain) cyanocobalamin (vitamin B-12) [Vitamin B-12] 1,000 mcg Tablet 1,000 mcg PO QAM Discharge Orders: Discharge Order (Routine); Ordered 07/09/24 Ordered By: Saji Tobar Admission Data Admit Date/Time: 07/08/24 13:09 Attending Provider: Saji Tobar Admit Provider: Saji Tobar Primary Care Provider: Melissa Srinivasan
[2024-07-09 08:09] VITALS: BP 134/60; TEMP 95.9; O2SAT 96
[2024-07-09 09:21] VITALS: PULSE 68
== END 2024-07-09 11:21 | disposition home or self-care (01) ==
LOC: ASU 09:24 → 3E 09:24